=== PATIENT | female | born 1935 | race Caucasian/White ===

== ENCOUNTER 2017-05-13 14:31 | Inpatient (IN) | payer MEDICARE, BC ==
[~2017-05-13] VITALS: Ht 160 cm; Wt 73.0 kg
[2017-05-13 10:30] VITALS: BP 110/76
[~2017-05-13 14:31] MED LIST: ALLOPURINOL100 MG PO; ATENOLOL50 MG PO; CLOPIDOGREL75 MG PO; CRESTOR10 MG PO; FUROSEMIDE40 MG PO; GLIMEPIRIDE2 MG PO; JANUVIA25 MG PO; LEVOTHYROXINE75 MCG PO; PANTOPRAZOLE SO40 MG PO; POTASSIUM CHLO10 ME1 PO; SPIRONOLACTONE25 MG PO; TEMAZEPAM15 MG PO; ULTRAM 50MG50 MG PO
--- OUTSIDE RECORDS SUMMARY | 2017-05-13 14:34 | XMS REPORT ---
Author Author [facility] Address Unknown Phone Unavailable Care Team Providers Care Artificial Fly Tier Name Role Phone JEANETH SWAN Unavailable Unavailable Problems This patient has no known problems. Allergies, Adverse Reactions, Alerts This patient has no known allergies or adverse reactions. Medications This patient has no known medications. Results Test Description Test Time Test Comments Text Results Atomic Results Result Comments IR CONSULT [place] [address] Patient Name: MARGARITA BAZAN MR #: [id number] : 1935 Age/Sex: 81/F Req #: [id number] Adm Physician: JEANETH SWAN MD Ordered by: ANIVAL HUNT MD Report #: [id number] Location: MED/SURG2 Room/Bed: [facility] _ Procedure: [id number] DX/IR CONSULT Exam Date: Exam Time: REPORT STATUS: Signed Date and Time: 02/21/2017 Procedure: Right internal jugular tunneled hemodialysis catheter placement; temporary right internal jugular hemodialysis catheter removal 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 Chacon Pre-operative diagnosis: End-stage renal disease Post -operative diagnosis: End-stage renal disease Conscious Sedation: Versed 1 mg and Fentanyl 50 mcg. The patient's heart rate and pulse oximetry were continuously monitored by the interventional radiology nurse. Blood pressure was monitored at 5 minute intervals. Additional Medications: Lidocaine 1 % for local anesthesia Fluoroscopy time: 1.2 minutes Dose-area Product: 214.3 cGycm2. Contrast used: 0 Estimated blood loss: Less than 20 cc Specimens: Temporary right internal jugular hemodialysis catheter, discarded Implants: 16.5 Citizen Of [place], 19 cm tip-cuff tunneled hemodialysis catheter DISCUSSION: Informed consent was obtained and documented in the medical record after discussion of risks and benefits. The patient was placed in the supine position on the fluoroscopic table. The right neck and chest were prepped and draped in standard sterile fashion. Preliminary sonographic evaluation confirmed patency of the right internal jugular vein, evidenced by compressibility. 1% lidocaine was infiltrated into the skin and subcutaneous tissues for local anesthesia. Then, under continuous sonographic guidance, a 21-gauge micropuncture needle was used to access the right internal jugular vein. A 0.0 1 8-in. wire was advanced centrally under fluoroscopic guidance and the needle was exchanged for a 5 Citizen [place] micropuncture sheath. The wire was then upsized to a 0.0 3 5-in. Amplatz Super Stiff wire which was advanced into the inferior vena cava under fluoroscopic guidance. Attention was then turned to creation of a subcutaneous tunnel on the right upper chest. An appropriate exit site was selected approximately 2 fingerbreadths inferior to the clavicle. Lidocaine 1% was infiltrated into the skin and subcutaneous tissues for local anesthesia from the planned catheter exit site to the venotomy at the right lower neck. A small stab incision was made. The catheter was then tunneled from the exit site on the right upper chest to the venotomy at the right lower neck, advancing the retention cuff well into the subcutaneous tunnel. The micropuncture sheath was then removed over the wire and the tract was dilated. Then a 16.5 Citizen [place] peel-away sheath was advanced over the wire under fluoroscopic guidance. The wire and dilator of the sheath were removed and the catheter was then advanced through the sheath , which was then broken and discarded. The catheter tip was positioned in the upper right atrium. Each lumen showed adequate bidirectional flow and was packed with 2000 units of heparin. The catheter was secured to the skin with monofilament nylon suture. The venotomy at the right lower neck was closed with tissue adhesive. Sterile dressings were applied. The patient tolerated the procedure well without immediate complication. The previously placed temporary right internal jugular hemodialysis catheter was then removed in total and hemostasis was achieved with manual compression. FINDINGS: Patent right internal jugular vein IMPRESSION: Successful placement of a tunneled hemodialysis catheter (16.5 Citizen Of [place], 19 cm tip-cuff length) by a right internal jugular approach, followed by removal of temporary right internal jugular hemodialysis catheter, without immediate complication. Signed by: Dr. Parker Chacon M.D. on 02/23/2017 7:15 AM Dictated By: PARKER CHACON MD 4 Transcribed By: JOSE on 02/23/17714 COPY TO: ANIVAL RTEVIZO MD SPECIAL PROCEDURE IN PRINCIPAL EXAMINER [place] [address] Patient Name: MARGARITA BAZAN MR #: [id number] : 1935 Age/Sex: 81/F Req #: [id number] Adm Physician: JEANETH SWAN MD Ordered by: ANIVAL HUNT MD Report #: [id number] Location: MED/SURG2 Room/Bed: [facility] Procedure: [id number] IR/SPECIAL PROCEDURE IN PRINCIPAL EXAMINER Exam Date: Exam Time: REPORT STATUS: Signed Date and Time: 02/21/2017 Procedure: Right internal jugular tunneled hemodialysis catheter placement; temporary right internal jugular hemodialysis catheter removal 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 Chacon Pre- operative diagnosis: End-stage renal disease Post-operative diagnosis: End- stage renal disease Conscious Sedation: Versed 1 mg and Fentanyl 50 mcg. The patient's heart rate and pulse oximetry were continuously monitored by the interventional radiology nurse. Blood pressure was monitored at 5 minute intervals. Additional Medications: Lidocaine 1% for local anesthesia Fluoroscopy time: 1.2 minutes Dose-area Product: 214.3 cGycm2. Contrast used: 0 Estimated blood loss: Less than 20 cc Specimens: Temporary right internal jugular hemodialysis catheter, discarded Implants: 16.5 Citizen Of [place] , 19 cm tip-cuff tunneled hemodialysis catheter DISCUSSION: Informed consent was obtained and documented in the medical record after discussion of risks and benefits. The patient was placed in the supine position on the fluoroscopic table. The right neck and chest were prepped and draped in standard sterile fashion. Preliminary sonographic evaluation confirmed patency of the right internal jugular vein, evidenced by compressibility. 1% lidocaine was infiltrated into the skin and subcutaneous tissues for local anesthesia. Then, under continuous sonographic guidance, a 21-gauge micropuncture needle was used to access the right internal jugular vein. A 0.0 1 8-in. wire was advanced centrally under fluoroscopic guidance and the needle was exchanged for a 5 Citizen [place] micropuncture sheath. The wire was then upsized to a 0.0 3 5-in. Amplatz Super Stiff wire which was advanced into the inferior vena cava under fluoroscopic guidance. Attention was then turned to creation of a subcutaneous tunnel on the right upper chest. An appropriate exit site was selected approximately 2 fingerbreadths inferior to the clavicle. Lidocaine 1% was infiltrated into the skin and subcutaneous tissues for local anesthesia from the planned catheter exit site to the venotomy at the right lower neck. A small stab incision was made. The catheter was then tunneled from the exit site on the right upper chest to the venotomy at the right lower neck, advancing the retention cuff well into the subcutaneous tunnel. The micropuncture sheath was then removed over the wire and the tract was dilated. Then a 16.5 Citizen [place] peel-away sheath was advanced over the wire under fluoroscopic guidance. The wire and dilator of the sheath were removed and the catheter was then advanced through the sheath , which was then broken and discarded. The catheter tip was positioned in the upper right atrium. Each lumen showed adequate bidirectional flow and was packed with 2000 units of heparin. The catheter was secured to the skin with monofilament nylon suture. The venotomy at the right lower neck was closed with tissue adhesive. Sterile dressings were applied. The patient tolerated the procedure well without immediate complication. The previously placed temporary right internal jugular hemodialysis catheter was then removed in total and hemostasis was achieved with manual compression. FINDINGS: Patent right internal jugular vein IMPRESSION: Successful placement of a tunneled hemodialysis catheter (16.5 Citizen [place], 19 cm tip-cuff length) by a right internal jugular approach, followed by removal of temporary right internal jugular hemodialysis catheter, without immediate complication. Signed by: Dr. Parker Chacon M.D. on 02/23/2017 7:15 AM Dictated By: PARKER CHACON MD 4 Transcribed By: OJSE on 02/23/17714 COPY TO: ANIVAL TREVIZO MD IR CONSULT [place] [address] Patient Name: MARGARITA BAZAN MR #: [id number] : 1935 Age/Sex: 81/F Req #: [id number] Adm Physician: JEANETH SWAN MD Ordered by: ANIVAL HUNT MD Report #: [id number] Location: MED/SURG2 Room/Bed: [facility] _ Procedure: [id number] DX/IR CONSULT Exam Date: Exam Time: REPORT STATUS: Signed PROCEDURE: NON-TUNNELLED CVC CATH PLACMNT COMPARISON: None. INDICATIONS: Need for dialysis. COMPLICATIONS : None. MEDICATIONS: None. BLOOD LOSS: 2.0 cc. PROCEDURE: Focused examination demonstrated a right internal jugular triple-lumen temporary central venous catheter. Ux Engineer image demonstrated the catheter tip to be projected over the stomach the region of the superior vena cava. The existing catheter and right neck were prepped and draped in the usual sterile fashion. 1% lidocaine was infused around the catheter for local anesthesia. A 0.035 inch wire was advanced through the existing catheter. The wire was advanced into the inferior vena cava for stability. The existing catheter was removed. A single dilation was performed over the wire. A new double lumen temporary central venous hemodialysis catheter with an accessory port was advanced over the wire. The catheter tip was positioned within the right atrium. The wire was removed. The catheter demonstrates proper function with aspiration and flushing of saline. The catheter lumens were flushed with sterile saline. A sterile dressing was applied. There were no immediate complications. The patient tolerated the procedure well. The patient was transferred to the post procedure area in stable unchanged condition for further monitoring. CONCLUSION: Successful exchange, utilizing fluoroscopic guidance, of the right internal jugular temporary central venous catheter for a right internal jugular temporary central venous hemodialysis catheter with an accessory port. Dictated by: Shilpa Atkins M.D. on 02/26/2017 at 13:28 Electronically approved by: Shilpa Atkins M.D. on 02/26/2017 at 13:28 Dictated By: SHILPA ATKINS MD 1328 COPY TO: ANIVAL HUNT MD NON-TUNNELLED CVC CATH PLACMNT [place] [address] Patient Name: MARGARITA BAZAN MR #: [id number] : 1935 Age/Sex: 81/F Req #: [id number] Adm Physician: JEANETH SWAN MD Ordered by: JEANETH SWAN MD Report #: [id number] Location: [place] [address] Room/Bed: [facility] Procedure: [id number] IR/NON-TUNNELLED CVC CATH PLACMNT Exam Date: 02/12/17 Exam Time: 1530 REPORT STATUS: Signed PROCEDURE: NON-TUNNELLED CVC CATH PLACMNT COMPARISON: None. INDICATIONS: Need for dialysis. COMPLICATIONS: None. MEDICATIONS: None. BLOOD LOSS: 2.0 cc. PROCEDURE: Focused examination demonstrated a right internal jugular triple-lumen temporary central venous catheter. Ux Engineer image demonstrated the catheter tip to be projected over the stomach the region of the superior vena cava. The existing catheter and right neck were prepped and draped in the usual sterile fashion. 1% lidocaine was infused around the catheter for local anesthesia. A 0.035 inch wire was advanced through the existing catheter. The wire was advanced into the inferior vena cava for stability. The existing catheter was removed. A single dilation was performed over the wire. A new double lumen temporary central venous hemodialysis catheter with an accessory port was advanced over the wire. The catheter tip was positioned within the right atrium. The wire was removed. The catheter demonstrates proper function with aspiration and flushing of saline. The catheter lumens were flushed with sterile saline. A sterile dressing was applied. There were no immediate complications. The patient tolerated the procedure well. The patient was transferred to the post procedure area in stable unchanged condition for further monitoring. CONCLUSION: Successful exchange, utilizing fluoroscopic guidance, of the right internal jugular temporary central venous catheter for a right internal jugular temporary central venous hemodialysis catheter with an accessory port. Dictated by: Shilpa Atkins M.D. on 02/26/2017 at 13:28 Electronically approved by: Shilpa Atkins M.D. on 02/26/2017 at 13:28 Dictated By: SHILPA ATKINS MD 1328 COPY TO: JEANETH SWAN MD FLUORO GUIDANCE [address]/REM [place] [address] Patient Name: MARGARITA BAZAN MR #: [id number] : 1935 Age/Sex: 81/F Req #: [id number] Adm Physician: JEANETH SWAN MD Ordered by: JEANETH SWAN MD Report #: [id number] Location: MED/SURG2 Room/Bed: [facility] Procedure: [id number] DX/FLUORO GUIDANCE [address]/ REM Exam Date: 02/12/17 Exam Time: 1530 REPORT STATUS: Signed PROCEDURE: NON-TUNNELLED CVC CATH PLACMNT COMPARISON: None. INDICATIONS: Need for dialysis. COMPLICATIONS: None. MEDICATIONS: None. BLOOD LOSS: 2.0 cc. PROCEDURE: Focused examination demonstrated a right internal jugular triple-lumen temporary central venous catheter. Ux Engineer image demonstrated the catheter tip to be projected over the stomach the region of the superior vena cava. The existing catheter and right neck were prepped and draped in the usual sterile fashion. 1% lidocaine was infused around the catheter for local anesthesia. A 0.035 inch wire was advanced through the existing catheter. The wire was advanced into the inferior vena cava for stability. The existing catheter was removed. A single dilation was performed over the wire. A new double lumen temporary central venous hemodialysis catheter with an accessory port was advanced over the wire. The catheter tip was positioned within the right atrium. The wire was removed. The catheter demonstrates proper function with aspiration and flushing of saline. The catheter lumens were flushed with sterile saline. A sterile dressing was applied. There were no immediate complications. The patient tolerated the procedure well. The patient was transferred to the post procedure area in stable unchanged condition for further monitoring. CONCLUSION: Successful exchange, utilizing fluoroscopic guidance, of the right internal jugular temporary central venous catheter for a right internal jugular temporary central venous hemodialysis catheter with an accessory port. Dictated by: Shilpa Atkins M.D. on 02/26/2017 at 13:28 Electronically approved by: Shilpa Atkins M.D. on 02/26/2017 at 13:28 Dictated By: SHILPA ATKINS MD 1328 COPY TO: JEANETH SWAN MD [facility] ([facility] [place] [address] Patient Name: MARGARITA BAZAN MR #: [id number] : 1935 Age/Sex: 81/F Req #: [id number] Adm Physician: GABY LUGO MD Ordered by: GABY LUGO MD Report #: [id number] Location: [facility] Room/Bed: [facility] Procedure: [id number] DX/CHEST SINGLE (PORTABLE) Exam Date: 02/11/17 Exam Time: 0545 REPORT STATUS: Signed EXAMINATION: CHEST SINGLE (PORTABLE) INDICATION: CHF and pneumonia COMPARISON: 02/09/2017 FINDINGS: TUBES and LINES: Interval placement of right IJ central line catheter. LUNGS: Lungs are not well inflated. There are bibasilar atelectasis. There is perihilar interstital opacities, consistent with interstitial edema. PLEURA : Small bilateral pleural effusions present. HEART AND MEDIASTINUM: Cardiac size is moderately enlarged. There are atherosclerotic calcifications within the aorta. Midline sternotomy wires are stable BONES AND SOFT TISSUES: No acute osseous lesion. Soft tissues are unremarkable. UPPER ABDOMEN: No free air under the diaphragm. IMPRESSION: Findings are in keeping with cardiogenic pulmonary edema and pleural effusions. Signed by: Dr. Kristopher Denney M.D. on 02/11/2017 6:45 AM Dictated By: KRISTOPHER PLUNKETT MD 4 COPY TO: GABY LUGO MD IR CONSULT [address] [address] Patient Name: MARGARITA BAZAN MR #: [id number] : 1935 Age/Sex: 81/F Req #: [id number] [facility] Physician: JEANETH SWAN MD Ordered by: GABY LUGO MD Report #: [id number] Location: MED/SURG2 Room/Bed: [facility] _ Procedure: [id number] DX/IR CONSULT Exam Date: Exam Time: REPORT STATUS: Signed Date and Time: 02/10/2017 Procedure: Central venous catheter placement 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 Chacon Pre-operative diagnosis: Poor intravenous access Post-operative diagnosis: Poor intravenous access Conscious Sedation: None Additional Medications: Lidocaine 1% for local anesthesia Fluoroscopy time: 0.3 minutes Dose-area Product: 3.54 cGycm2. Frontal Air Kerma: 19 mGy Contrast used: None Estimated blood loss: Less than 5 cc Blood products administered: None Specimens: None Implants: 7 Citizen Of [place] 16 cm triple-lumen central venous catheter DISCUSSION: Informed consent was obtained and documented in the medical record after discussion of risks and benefits. The patient was placed in the supine position on the fluoroscopic table. Preliminary sonographic evaluation confirmed patency of the right internal jugular vein, evidenced by compressibility. The right cervical region was prepped and draped in the standard sterile fashion. 1% lidocaine was infiltrated into the skin and subcutaneous tissues for local anesthesia. Then under continuous sonographic guidance an 18-gauge singlewall needle was advanced into the right internal jugular vein. A permanent sonographic image was stored in the medical record. A 0.0 3 5-in. wire was advanced centrally under fluoroscopic guidance. The needle was removed and the tract was dilated. Then a 7 Citizen [place] 16 cm triple-lumen central venous catheter was advanced over the wire to full depth. The wire was removed and the catheter tip was positioned in the low superior vena cava. Each lumen showed adequate bidirectional flow and was flushed with sterile saline. The catheter was secured to the skin with monofilament nylon suture and a sterile dressing was applied. The patient tolerated the procedure well without immediate complication. FINDINGS: Patent right internal jugular vein. IMPRESSION: Successful placement of a 7 Citizen [place] 16 cm triple-lumen central venous catheter by a right internal jugular approach under sonographic and fluoroscopic guidance. The catheter may be used immediately. Signed by: Dr. Parker Chacon M.D. on 02/10/2017 11:32 AM Dictated By: PARKER CHACON MD 57 Transcribed By: JOSE on 02/15/171457 COPY TO: GABY LUGO MD NON-TUNNELLED CVC CATH PLACMNT [place] [address] Patient Name: MARGRAITA BAZAN MR #: [id number] : 1935 Age/Sex: 81/F Req #: [id number] Adm Physician: JEANETH SWAN MD Ordered by: GABY LUGO MD Report #: [id number] Location: MED/SURG2 Room/Bed: [facility] Procedure: [id number] IR/NON-TUNNELLED CVC CATH PLACMNT Exam Date: 02/10/17 Exam Time: 1000 REPORT STATUS: Signed Date and Time: 02/10/2017 Procedure: Central venous catheter placement 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 Frontal Air Kerma: 19 mGy Contrast used: None Estimated blood loss: Less than 5 cc Blood products administered: None Specimens: None Implants: 7 Citizen [place] 16 cm triple-lumen central venous catheter DISCUSSION: Informed consent was obtained and documented in the medical record after discussion of risks and benefits. The patient was placed in the supine position on the fluoroscopic table. Preliminary sonographic evaluation confirmed patency of the right internal jugular vein, evidenced by compressibility. The right cervical region was prepped and draped in the standard sterile fashion. 1% lidocaine was infiltrated into the skin and subcutaneous tissues for local anesthesia. Then under continuous sonographic guidance an 18-gauge singlewall needle was advanced into the right internal jugular vein. A permanent sonographic image was stored in the medical record. A 0.0 3 5-in. wire was advanced centrally under fluoroscopic guidance. The needle was removed and the tract was dilated. Then a 7 Citizen [place] 16 cm triple-lumen central venous catheter was advanced over the wire to full depth. The wire was removed and the catheter tip was positioned in the low superior vena cava. Each lumen showed adequate bidirectional flow and was flushed with sterile saline. The catheter was secured to the skin with monofilament nylon suture and a sterile dressing was applied. The patient tolerated the procedure well without immediate complication. FINDINGS : Patent right internal jugular vein. IMPRESSION: Successful placement of a 7 Citizen [place] 16 cm triple-lumen central venous catheter by a right internal jugular approach under sonographic and fluoroscopic guidance. The catheter may be used immediately. Signed by: Dr. Parker Chacon M.D. on 02/10/2017 11:32 AM Dictated By: PARKER CHACON MD 57 Transcribed By: JOSE on 1457 COPY TO: GABY LUGO MD FLUORO GUIDANCE [address]/REM [place] [address] Patient Name: MARGARITA BAZAN MR #: [id number] : 1935 Age/Sex: 81/F Req #: [id number] Adm Physician: JEANETH SWAN MD Ordered by: GABY LUGO MD Report #: [id number] Location: MED/SURG2 Room/Bed: [facility] Procedure: [id number] DX/FLUORO GUIDANCE [address]/REM Exam Date: 02/10/17 Exam Time: 1000 REPORT STATUS: Signed Date and Time: 02/10/2017 Procedure: Central venous catheter placement 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 Frontal Air Kerma: 19 mGy Contrast used: None Estimated blood loss: Less than 5 cc Blood products administered: None Specimens: None Implants: 7 Citizen [place] 16 cm triple-lumen central venous catheter DISCUSSION: Informed consent was obtained and documented in the medical record after discussion of risks and benefits. The patient was placed in the supine position on the fluoroscopic table. Preliminary sonographic evaluation confirmed patency of the right internal jugular vein, evidenced by compressibility. The right cervical region was prepped and draped in the standard sterile fashion. 1% lidocaine was infiltrated into the skin and subcutaneous tissues for local anesthesia. Then under continuous sonographic guidance an 18-gauge singlewall needle was advanced into the right internal jugular vein. A permanent sonographic image was stored in the medical record. A 0.0 3 5-in. wire was advanced centrally under fluoroscopic guidance. The needle was removed and the tract was dilated. Then a 7 Citizen [place] 16 cm triple-lumen central venous catheter was advanced over the wire to full depth. The wire was removed and the catheter tip was positioned in the low superior vena cava. Each lumen showed adequate bidirectional flow and was flushed with sterile saline. The catheter was secured to the skin with monofilament nylon suture and a sterile dressing was applied. The patient tolerated the procedure well without immediate complication. FINDINGS : Patent right internal jugular vein. IMPRESSION: Successful placement of a 7 [place] 16 cm triple-lumen central venous catheter by a right internal jugular approach under sonographic and fluoroscopic guidance. The catheter may be used immediately. Signed by: Dr. Parker Chacon M.D. on 02/10/2017 11:32 AM Dictated By: PARKER CHACON MD 57 Transcribed By: JOSE on 1457 COPY TO: GABY LUGO MD US GUIDANCE FOR VASCULAR ACCES [place] [address] Patient Name: MARGARITA BAZAN MR #: [id number] : 1935 Age/Sex: 81/F Req #: [id number] Adm Physician: JEANETH SWAN MD Ordered by: GABY LUGO MD Report #: [id number] Location: [facility] Room/Bed: [facility] Procedure: [id number] US/US GUIDANCE FOR VASCULAR ACCES Exam Date: 02/10/17 Exam Time: 1027 REPORT STATUS: Signed Date and Time: 02/10/2017 Procedure: Central venous catheter placement 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 Frontal Air Kerma: 19 mGy Contrast used: None Estimated blood loss: Less than 5 cc Blood products administered: None Specimens: None Implants: 7 Citizen [place] 16 cm triple-lumen central venous catheter DISCUSSION: Informed consent was obtained and documented in the medical record after discussion of risks and benefits. The patient was placed in the supine position on the fluoroscopic table. Preliminary sonographic evaluation confirmed patency of the right internal jugular vein, evidenced by compressibility. The right cervical region was prepped and draped in the standard sterile fashion. 1% lidocaine was infiltrated into the skin and subcutaneous tissues for local anesthesia. Then under continuous sonographic guidance an 18-gauge singlewall needle was advanced into the right internal jugular vein. A permanent sonographic image was stored in the medical record. A 0.0 3 5-in. wire was advanced centrally under fluoroscopic guidance. The needle was removed and the tract was dilated. Then a 7 Citizen [place] 16 cm triple-lumen central venous catheter was advanced over the wire to full depth. The wire was removed and the catheter tip was positioned in the low superior vena cava. Each lumen showed adequate bidirectional flow and was flushed with sterile saline. The catheter was secured to the skin with monofilament nylon suture and a sterile dressing was applied. The patient tolerated the procedure well without immediate complication. FINDINGS : Patent right internal jugular vein. IMPRESSION: Successful placement of a 7 [place] 16 cm triple-lumen central venous catheter by a right internal jugular approach under sonographic and fluoroscopic guidance. The catheter may be used immediately. Signed by: Dr. Parker Chacon M.D. on 02/10/2017 11:32 AM Dictated By: PAKRER CHACON MD 57 Transcribed By: JOSE on 1457 COPY TO: GABY LUGO MD CHEST SINGLE (PORTABLE) [place] [address] Patient Name: MARGARITA BAZAN MR #: [id number] : 1935 Age/Sex: 81/F Req #: [id number] Adm Physician: Ordered by: LAKEISHA SANON Report #: [id number] Location: ER Room/Bed: _ Procedure: [id number] DX/CHEST SINGLE (PORTABLE) Exam Date: 02/09/17 Exam Time: 1500 REPORT STATUS: Signed PROCEDURE: A single AP view of the chest. COMPARISON: None. INDICATIONS: DYSPNEA FINDINGS: Lines/tubes: None. Lungs: The lungs are well inflated. Interstitial edema and bibasilar opacities likely representing atelectasis related to adjacent pleural effusions. Pleura : Small bilateral pleural effusions. No pneumothorax. Heart and mediastinum: The cardiac silhouette is enlarged. Bones: No acute bony abnormality. Median sternotomy wires. Soft tissues: Surgical clip overlies the left upper breast. IMPRESSION: Cardiogenic pulmonary edema with small bilateral pleural effusions. Dictated by: Danny Moore M.D. on 02/09/2017 at 15:48 Electronically approved by: Danny Moore M.D. on 02/09/2017 at 15:48 Dictated By: DANNY MOORE MD 1548 Transcribed By: DIGNA on 02/09/17 1548 COPY TO: LAKEISHA SANON
--- OUTSIDE RECORDS SUMMARY | 2017-05-13 14:34 | XMS REPORT | Clinical Summary ---
Author Author [facility] Organization [facility] Address Unknown Phone Unavailable Care Team Providers Care [employer] Name Role Phone Natalie Hawk DO PCP Allergies Active Allergy Reactions Severity Noted Date Comments Verapamil Swelling 06/08/2016 Rivaroxaban Other (See Comments) 06/10/2016 dizziness Current Medications Prescription Sig. Disp. Refills Start End Date Status Date rosuvastatin (CRESTOR) 5 Take 5 mg by mouth daily. Active MG tablet allopurinol (ZYLOPRIM) Take 100 mg by mouth Active 100 MG tablet daily. clopidogrel (PLAVIX) 75 Take 75 mg by mouth Active mg tablet daily. pantoprazole (PROTONIX) Take 40 mg by mouth Active 40 MG EC tablet daily. atenolol (TENORMIN) 50 MG Take 50 mg by mouth 2 Active tablet (two) times a day. spironolactone Take 25 mg by mouth Active (ALDACTONE) 25 MG tablet daily. traMADol (ULTRAM) 50 mg Take 50 mg by mouth every Active tablet 6 (six) hours as needed for moderate pain. levothyroxine (SYNTHROID, Take 75 mcg by mouth Active LEVOXYL) 75 mcg tablet every morning. potassium chloride Take 10 mEq by mouth 2 Active (K-DUR,KLOR-CON) 10 MEQ (two) times a day. CR tablet glimepiride (AMARYL) 2 MG Take 2 mg by mouth daily Active tablet before breakfast. vitamin A 8000 UNIT Take 8,000 Units by mouth Active capsule daily. cholecalciferol, vitamin Take 400 Units by mouth Active D3, (VITAMIN D3) 400 unit daily. tablet latanoprost (XALATAN) Apply 1 drop to eye Active 0.005 % ophthalmic daily. For dry eye solution syndrome sitaGLIPtin (JANUVIA) 25 Take 25 mg by mouth Active MG tablet daily. albuterol (PROAIR Inhale 2 puffs every 6 Active HFA,PROVENTIL (six) hours as needed for HFA,VENTOLIN HFA) 90 wheezing. mcg/actuation inhaler ipratropium (ATROVENT) 2 sprays into each Active 0.03 % nasal spray nostril every 12 (twelve) hours as needed for rhinitis. hydrOXYzine (ATARAX) 25 Take 25 mg by mouth 3 Active MG tablet (three) times a day as needed for itching. SITAGLIPTIN PHOSPHATE Take by mouth. 12/30/19 Discontin (JANUVIA ORAL) 17 ued furosemide (LASIX) 40 mg Take 40 mg by mouth 2 01/06/20 Discontin tablet (two) times a day. 17 ued potassium chloride Take 20 mEq by mouth 2 06/11/19 Discontin (KLOR-CON) 20 mEq packet (two) times a day. 17 ued aspirin (ECOTRIN) 81 MG Take 1 tablet (81 mg 30 tablet 0 06/21/19 enteric coated tablet total) by mouth daily for 17 17 30 days. lactulose 20 gram/30 mL Take 30 mL (20 g total) 300 mL 1 06/21/19 solution by mouth daily as needed 17 17 (constipation) for up to 30 days. traZODone (DESYREL) 50 MG Take 1 tablet (50 mg 30 tablet 0 06/21/19 07/21/19 tablet total) by mouth nightly 17 17 for 30 days. dextran 70-hypromellose Administer 1 drop to both 01/06/20 02/05/20 (ARTIFICIAL TEARS) eyes 4 (four) times a day 17 17 0.1-0.3 % drops as needed (itching) for up to 30 days. benzonatate (TESSALON) Take 1 capsule (200 mg 01/06/20 02/05/20 200 MG capsule total) by mouth every 6 17 17 (six) hours as needed for cough for up to 30 days. ipratropium-albuterol Take 3 mL by nebulization 01/06/20 02/05/20 (DUO-NEB) 0.5-2.5 mg/mL every 4 (four) hours as 17 17 nebulizer needed for wheezing for up to 30 days. guaiFENesin (MUCINEX) 600 Take 1 tablet (600 mg 60 tablet 0 01/06/20 02/05/20 mg tablet extended total) by mouth 2 (two) 17 17 release 12hr times a day for 30 days. dextromethorphan-guaifene Take 10 mL by mouth every 01/06/20 02/05/20 sin (ROBITUSSIN-DM) 4 (four) hours as needed 17 17 10-100 mg/5 mL liquid for cough for up to 30 days. piperacillin-tazobactam Infuse 2.25 g into a 01/06/20 01/09/20 (ZOSYN) 2.25 gram in 50 venous catheter every 6 17 17 mL Mini-Bag Plus (six) hours for 3 days. vancomycin in 0.9% sodium Infuse 1.25 g (1,250 mg 01/06/20 01/09/20 chloride (VANCOCIN) 1250 total) into a venous 17 17 mg/250 mL IVPB catheter every other day for 3 days. Active Problems Problem Noted Date Heart failure due to valvular disease 12/29/2016 S/P MVR (mitral valve repair) 07/21/2016 Overview: with a 62 modifier. 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 paiute heart 12/2016 without angina pectoris Overview: Hx CABG hx PCI Type 2 diabetes mellitus without complication, without long-term current 12/2016 use of insulin History of carotid endarterectomy 06/08/2016 History of renal stent 06/08/2016 GERD (gastroesophageal reflux disease) Encounters Date Type Specialty Care Team Description 02/28/2017 Orders Only Cardiology Pushpa Pichardo MA S/P mitral valve clip implantation (Primary Dx); Aortic valve disorder 02/12/2017 Telephone Cardiology Yannick Liang MD pt readmitted to the hosp for dvt's 01/23/2017 Telephone Cardiology Yannick Liang MD pt to have TTE scheduled post d/c from assisted living 01/15/2017 Orders Only Yenni Dias 01/04/2017 Anesthesia Critical Care Medicine Ramon Grewal, CLASSIFIED AD TAKER Event 01/04/2017 Orders Only Procedural Cardiology Vaishali Seymour RN 12/29/2016 [facility] Critical Care Medicine Rojas Rod MD Heart failure due to - Encounter Geno Powers MD valvular disease, acute 01/05/2017 on chronic, diastolic (Primary Dx); Permanent atrial fibrillation 08/03/2016 [facility] Cardiology Colin Cesar MD Severe mitral ry Visit Yannick Liang MD regurgitation (Primary Dx); Severe tricuspid regurgitation; 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 paiute heart without angina pectoris; Chronic atrial fibrillation 08/03/2016 Hospital Procedural Cardiology Colin Cesar MD Mitral valve disorder; Encounter S/P mitral valve clip implantation 08/03/2016 Orders Only Cardiology Yeimi Osuna, OLIVIA Mitral valve disorder (Primary Dx) 07/26/2016 Orders Only Cardiology ThaoFranceYeimi, MA Mitral valve disorder (Primary Dx); S/P mitral valve clip implantation 06/23/2016 Telephone Cardiology Eda Baird RN shortness breath and coughing phlegm 06/21/2016 Patient Quality Raquel Lockwood R Outreach 06/21/2016 Orders Only Cardiology ThaoFelixia, MA Mitral valve disorder (Primary Dx); S/P mitral valve clip implantation 06/19/2016 Anesthesia Procedural Cardiology Brina Morris Event 06/19/2016 Procedure Pass Procedural Cardiology 06/19/2016 Procedure Pass Procedural Cardiology 06/19/2016 Surgery Procedural Cardiology Yannick Liang MD Cv mitral clip [29728 (CPT )] 06/14/2016 Orders Only Cardiology Yannick Liang MD Non-rheumatic mitral regurgitation (Primary Dx) 06/13/2016 Procedure Pass Procedural Cardiology 06/13/2016 Surgery Procedural Cardiology Bryant Matt MD Cv right and left heart cath selective angiography lv [95017 (CPT )] 06/09/2016 [facility] Cardiology Adonis Ramos Severe mitral - Encounter MD Nate regurgitation (Primary 06/21/2016 Virginia Rod MD Dx); Dyspnea, unspecified type; J.B. 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 paiute heart without angina pectoris 06/08/2016 [facility] Cardiology Colin Cesar MD Mitral valve ry Visit insufficiency, unspecified etiology (Primary Dx) 06/08/2016 Office Visit Cardiovascular Milan Kwan MD Severe mitral regurgitation (Primary Dx); Severe tricuspid regurgitation; Chronic atrial fibrillation; 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 paiute heart without angina pectoris; Type 2 diabetes mellitus without complication, without long-term current use of insulin; CKD (chronic kidney disease), unspecified stage; History of carotid endarterectomy; History of renal stent after 05/12/2016 Immunizations Name Dates Previously Given Next Due FLUCELVAX QUAD PF (0.5mL 01/03/2017 syringe) Family History Medical History Relation Name Comments Heart attack Brother Heart attack Father Heart disease Father Heart attack Sister Relation Name Status Comments Brother Father Mother Sister Social History Tobacco Use Types Packs/Day Years Used Date Former Smoker Cigarettes 2 30 Alcohol Use Drinks/Week oz/Week Comments No Sex Assigned at Date Recorded Not on file Last Filed Vital Signs Vital Sign Reading Time Taken Blood Pressure 125/60 01/05/2017 6:00 PM CDT Pulse 76 01/05/2017 6:00 PM CDT Temperature 35.8 C (96.5 F) 01/05/2017 3:09 PM CDT Respiratory Rate 22 01/05/2017 5:13 PM CDT Oxygen Saturation 94% 01/05/2017 5:13 PM CDT Inhaled Oxygen - - Concentration Weight 95.5 kg (210 lb 9.6 oz) 01/05/2017 7:00 AM CDT Height 167.6 cm (5' 6") 12/29/2016 7:27 PM CDT Body Mass Index 33.99 01/05/2017 7:00 AM CDT Plan of Treatment Date Type Specialty Care Team Description 06/28/2017 Appointment Procedural Cardiology Yannick Liang MD [address] [facility] [address] [place] [address] [id number] 06/28/2017 Multidisciplina Cardiology Yannick Liang MD ry Visit [address] [facility] [address] [place] [address] Health Maintenance Due Date Last Done Comments FOOT EXAM 09/10/1943 OPHTHALMOLOGY EXAM 09/10/1943 URINE MICROALBUMIN 09/10/1943 ZOSTER VACCINE 1993 PNEUMOCOCCAL-13 1998 PNEUMOCOCCAL Completed 11/05/2006 POLYSACCHARIDE VACCINE AGE 65 AND OVER INFLUENZA VACCINE Completed 01/03/2017, 01/12/2016, 02/17/2004 Implants Implanted Type Area Manager Video Device Expiration Model / Identifier Date Serial / Lot Kit Mitraclip System (1 Clip) - Cardiovasc ZEPEDA VASCULAR [id number] ular DEVICES / Implanted: Qty: 1 on 06/19/2016 by Implants / Yannick Liang MD Procedures Procedure Name Priority Date/Time Associated Diagnosis Comments ECHOCARDIOGRAM Routine 01/04/2017 Results for this TRANSESOPHAGEAL W DOPPLER 12:43 PM CDT procedure are in the COLORFLOW results section. ECHOCARDIOGRAM 2D Routine 12/29/2016 Results for this COMPLETE W MMODE SPECTRAL 8:55 PM CDT procedure are in the COLOR DOPPLER (60717) results section. ECHOCARDIOGRAM 2D Routine 08/03/2016 Mitral valve disorder Results for this COMPLETE W MMODE SPECTRAL 9:58 AM CDT S/P mitral valve clip procedure are in the COLOR DOPPLER (55795) implantation results section. ECHOCARDIOGRAM 2D Routine 06/20/2016 Results for this COMPLETE W MMODE SPECTRAL 2:51 PM CDT procedure are in the COLOR DOPPLER (95119) results section. ECHOCARDIOGRAM Routine 06/19/2016 Results for this TRANSESOPHAGEAL 2:43 PM CDT procedure are in the INTRAPROCEDURE results section. ANESTHESIA INTUBATION Routine 06/19/2016 1:59 PM CDT Procedure Note - Ramon Grewal CRNA - 06/19/2016 11:17 AM CDT Airway Date/Time: 06/19/2016 11:05 AM Performed by: LIZY HERNÁNDEZ V Authorized by: LIZY HERNÁNDEZ V Location: OR Urgency: Elective Difficult Airway: No Anesthesio logist: LIZY HERNÁNDEZ V Resident/C RNA: RAMON GREWAL Other Anesthesia Staff: BRINA MORRIS Performed by: other anesthesia staff Preoxygena ilyah with 100% O2: Yes C-spine Precaution s Maintained Throughout : Yes Mask Ventilatio n: Easy mask Final Airway Type: Endotrache al airway Final Endotrache al Airway: ETT Cuffed: Yes Technique Used: Direct laryngosco py Devices/Me thods Used in Placement: Intubatin g stylet Insertion Site: Oral Blade Type: George Laryngosco pe Blade/Vide olaryngosc ope Blade Size: 2 ETT Size (mm): 7.0 Cuff at minimum occlusion pressure: Yes Measured from: Lips ETT to Lips (cm): 22 Placement Verified by: CO2 detection, direct visualizat ion and equal breath sounds Laryngosco pic view: Grade I - full view of glottis Rapid Sequence Induction (RSI): No Modified RSI: No Number of Attempts at Approach: 1 ARTERIAL LINE Routine 06/19/2016 1:59 PM CDT Procedure Note - Ramon Grewal CRNA - 06/19/2016 11:40 AM CDT Arterial line Performed by: LIZY HERNÁNDEZ V Authorized by: LIZY HERNÁNDEZ V Patient Location: Pre-op Start Time: 06/19/2016 9:00 AM End Time: 06/19/2016 9:20 AM Staff: Anesthesio logist: LIZY HERNÁNDEZ V Other Staff: BRINA MORRIS Performed by: Other staff Pre-proced ure: patient identified MSBT: antiseptic used and hand hygiene performed Indicatio ns: Indication s: multiple ABGs and hemodynami c monitoring Anesthesia : Anesthesia : General Procedure Details: Arterial Line placement: Placed pre-induct ion Line placement site: Radial Line placement side: Right Arterial line gauge: 20 G Number of attempts: 1 Ultrasound guidance used: No Post-proce dure: Post-proce dure: Sterile dressing applied Post procedure circulatio n, sensation, movement: Normal Patient tolerance: Patient tolerated the procedure well with no immediate complicati ons CV RIGHT HEART CATH Routine 06/19/2016 Non-rheumatic mitral Results for this 1:27 PM CDT regurgitation procedure are in the results section. CV MITRAL CLIP Routine 06/19/2016 Non-rheumatic mitral Results for this 1:27 PM CDT regurgitation procedure are in the results section. CV RIGHT AND LEFT HEART Routine 06/13/2016 Results for this CATH SELECTIVE CORONARY 5:38 PM CDT procedure are in the LV results section. ECHOCARDIOGRAM 2D Routine 06/12/2016 Results for this COMPLETE W MMODE SPECTRAL 11:29 AM CDT procedure are in the COLOR DOPPLER (47624) results section. 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 Component Value Ref Range POC glucose 161 (H) 65 - 99 mg/dL Comment: No Action Needed [facility] Notified RN Meter ID: [id number] Law Examiner: Jason Cuenca Specimen Performing Laboratory [facility] DEPARTMENT OF PATHOLOGY AND GENOMIC MEDICINE [address] [place] [phone] * CBC with platelet and differential (01/05/2017 5:20 AM) Only the most recent of 15 results within the time period is included. Component Value Ref Range WBC 11.16 (H) 4.50 - 11.00 k/uL RBC 5.06 4.20 - 5.50 m/uL HGB 12.8 12.0 - 16.0 g/dL HCT 41.8 37.0 - 47.0 % MCV 82.6 82.0 - 100.0 fL MCH 25.3 (L) 27.0 - 34.0 pg MCHC 30.6 (L) 31.0 - 37.0 g/dL RDW - SD 65.1 (H) 37.0 - 55.0 fL MPV 10.8 8.8 - 13.2 fL Platelet count 246 150 - 400 k/uL Nucleated RBC 0.20 /100 WBC Neutrophils 71.8 (H) 39.0 - 69.0 % Lymphocytes 12.3 (L) 25.0 - 45.0 % Monocytes 11.5 (H) 0.0 - 10.0 % Eosinophils 1.6 0.0 - 5.0 % Basophils 0.6 0.0 - 1.0 % Immature granulocytes 2.2 (H)Comment: "Immature granulocytes" 0.0 - 1.0 % (promyelocytes, myelocytes, metamyelocytes) Specimen Performing Laboratory Blood [facility] DEPARTMENT OF PATHOLOGY AND GENOMIC MEDICINE [address] [place] [phone] * Estimated GFR (01/05/2017 4:00 AM) Only the most recent of 22 results within the time period is included. Component Value Ref Range GFR Non Af Amer 27 (A) mL/min/1.73 m2 GFR Af Amer 33 (A) mL/min/1.73 m2 Comment: Chronic kidney disease: <60 mL/min/1.73m2 Kidney failure: <15 mL/min/1.73m2 The estimated GFR is calculated from the IDMS-traceable Modification of Diet in Renal Disease Equation. The accuracy of the calculation is poor when the creatinine is normal. Calculated values >90 mL/min/1.73m2 are not reported. This equation has not been validated in children (<18 years), women, the elderly (>70 years), or ethnic groups other than Caucasians and Americans. Specimen Performing Laboratory Plasma specimen [facility] DEPARTMENT OF PATHOLOGY AND GENOMIC MEDICINE [address] [place] [address] * Basic metabolic panel (01/05/2017 4:00 AM) Only the most recent of 18 results within the time period is included. Component Value Ref Range Sodium 143 135 - 148 mEq/L Potassium 3.7 3.5 - 5.0 mEq/L Chloride 97 (L) 98 - 112 mEq/L CO2 33 (H) 24 - 31 mEq/L Anion gap 13 7 - 15 mEq/L Comment: Starting from July , anion gap calculation no longer incorporates potassium. Please note the change. BUN 57 (H) 8 - 23 mg/dL Creatinine 1.8 (H) 0.5 - 0.9 mg/dL Glucose 133 (H) 65 - 99 mg/dL Calcium 9.5 8.8 - 10.2 mg/dL Specimen Performing Laboratory Plasma specimen [facility] DEPARTMENT OF PATHOLOGY AND [facility] MEDICINE [address] [place] [address] * Echocardiogram transesophageal (01/04/2017 12:43 PM) Specimen Performing [facility] [address] [place] [address] Narrative Transesophageal Echo Report [address] [place] [address] , [place] [address] Pat.Name:GILMA MELLO Pat.ID:[id number] .Date: 01/04/2017 Refer.MD:GENO POWERS MD Exam Time: 8:52:00 AMStudy Type:ROSAMARIA Height:66inWeight:219lb BSA: 2.08 m2 DOBAge:1935,81Y Sex: FEMALEBP: 118/77 HR:84 bpmSonogrphr: Saloni Watson DO Pat. Stat.:Inpatient Room:F8-14 Study Status:Final Echo Event ID:[id number] Order ID:[id number] Reason for Study:Mitral Regurgitation, Tricuspid Regurgitation History / Clinical:COPD, Coronary Artery Disease, Carotid endarterectomy Procedures:Transesophageal Echo with Colorflow Doppler Race: SUMMARY: MV clip at A2-P2. Mild to moderate mitral regurgitation. Severe tricuspid regurgitation FINDINGS: ROSAMARIA:The attending hobbing press operator performed the ROSAMARIA procedure and waspresent for the entire duration. The patient was counseledand an informed consent was obtained. Topical and intravenousanesthesia was administered. The esophagus was intubatedwithout difficulty. The probe was passed to the gastricfundus and all standard echocardiographic views wereobtained. The patient tolerated the procedure well. LV: LV size is normal. LV systolic function is lower limits of normal.Overall wall motion is lower limits of normal. EstimatedEF is 50-54%. Septal motion is paradoxical. RV: RV size is severely enlarged. RV systolic function is depressed. LA: LA volume is enlarged. No thrombus or mass is visualized in theLA or LA appendage. RA: RA volume is enlarged. AO: Aortic root diameter is normal in size. Mild atherosclerotic changesseen in the aortic arch and descending aorta. KOREY: No pericardial effusion. AV: Focal calcification of AV leaflets. MV: MV clip at A2-P2. Mild to moderate mitral regurgitation. PV: No structural PV abnormalities noted. TV: Dilated tricuspid annulus with poor coaptation. Severe tricuspidregurgitation ROSAMARIA: Anesthesia: Per Anesthesia ASA Class: 4 Physician: Oniel Liz MD Supervisor Publications Production: Saloni Watson DO Pre TEEBP HR Post ROSAMARIA BP HR 118/77 84 119/58 76 Meds:Viscous xylocaine, Cetacaine spray to oropharynx, Per Anesthesia Complications: None Condition: Stable Comments:Severe TR Signed 01/04/2017 01:52 PM Oniel Liz MD Procedure Note Interface, Radiology Results In - 01/04/2017 1:53 PM CDT Transesophageal Echo Report [address], [place], [place] [address] Pat.Name: GILMA MELLO [facility].ID: [id number] .Date: 01/04/2017 Refer.MD: GENO POWERS MD Exam Time: 8:52:00 AM Study Type:ROSAMARIA Height: 66in Weight: 219lb BSA: 2.08 m2 Age: 4 1935,81Y Sex: FEMALE BP: 118/77 HR: 84 bpm Sonogrphr: Saloni Watson. Stat.:Inpatient Room: [facility] Study Status:Final Echo Event ID:[id number] Order ID: [id number] Reason for Study:Mitral Regurgitation, Tricuspid Regurgitation History / Clinical:COPD, Coronary Artery Disease, Carotid endarterectomy Procedures:Transesophageal Echo with Colorflow Doppler Race: SUMMARY: MV clip at A2-P2. Mild to moderate mitral regurgitation. Severe tricuspid regurgitation FINDINGS: ROSAMARIA: The attending hobbing press operator performed the ROSAMARIA procedure and was present for the entire duration. The patient was counseled and an informed consent was obtained. Topical and intravenous anesthesia was administered. The esophagus was intubated without difficulty. The probe was passed to the gastric fundus and all standard echocardiographic views were obtained. The patient tolerated the procedure well. LV: LV size is normal. LV systolic function is lower limits of normal. Overall wall motion is lower limits of normal. Estimated EF is 50-54%. Septal motion is paradoxical. RV: RV size is severely enlarged. RV systolic function is depressed. LA: LA volume is enlarged. No thrombus or mass is visualized in the LA or LA appendage. RA: RA volume is enlarged. AO: Aortic root diameter is normal in size. Mild atherosclerotic changes seen in the aortic arch and descending aorta. KOREY: No pericardial effusion. AV: Focal calcification of AV leaflets. MV: MV clip at A2-P2. Mild to moderate mitral regurgitation. PV: No structural PV abnormalities noted. TV: Dilated tricuspid annulus with poor coaptation. Severe tricuspid regurgitation ROSAMARIA: Anesthesia: Per Anesthesia ASA Class: 4 Physician: Oniel Liz MD Supervisor Publications Production: Saloni Watson DO Pre ROSAMARIA BP HR Post ROSAMARIA BP HR 118/77 84 119/58 76 Meds: Viscous xylocaine, Cetacaine spray to oropharynx, Per Anesthesia Complications: None Condition: Stable Comments: Severe TR Signed 01/04/2017 01:52 PM Oniel Liz MD * Vancomycin level, trough (01/03/2017 11:29 AM) Component Value Ref Range Vancomycin, trough 10.8 10.0 - 20.0 ug/mL Comment: Therapeutic Ranges: Peak 30.0 - 40.0 ug/mL Trough 10.0 - 20.0 ug/mL Specimen Performing Laboratory Serum [facility] DEPARTMENT OF PATHOLOGY AND GENOMIC MEDICINE [address] [place] [id number] * XR Chest 1 Vw Portable (01/02/2017 6:08 PM) Only the most recent of 3 results within the time period is included. Specimen Performing Laboratory [address] [address] Narrative Examination:XR CHEST 1 VW PORTABLE Clinical history:"SHORTNESS OF BREATH" Comparison:12/29/2016 IMPRESSION: There are no new alveolar opacities within either lung.There is a tiny left pleural effusion. Tiny right pleural effusion is seen. No pneumothoraces are identified. The cardiomediastinal silhouette is unchanged. The bones of the chest are unchanged. [facility]-[id number] Procedure Note Hm Interface, Radiology Results Incoming - 01/02/2017 6:39 PM CDT Examination: XR CHEST 1 VW PORTABLE Clinical history: "SHORTNESS OF BREATH" Comparison: 12/29/2016 IMPRESSION: There are no new alveolar opacities within either lung. There is a tiny left pleural effusion. Tiny right pleural effusion is seen. No pneumothoraces are identified. The cardiomediastinal silhouette is unchanged. The bones of the chest are unchanged. [facility]-[id number] * Arterial blood gas, pulmonary func dept (01/01/2017 5:00 PM) Component Value Ref Range pH, arterial 7.377 7.350 - 7.450 units pCO2, arterial 42.3 35.0 - 45.0 mmHg pO2, arterial 114.0 (H) 80.0 - 90.0 mmHg O2 saturation, arterial 98.8 95.0 - 100.0 % Base excess, arterial -0.5 -2.0 - 2.0 mEq/L Bicarbonate 24.9 21.0 - 28.0 mEq/L O2 content 18.6 VOL% Carboxyhemoglobin 0.9 0.0 - 1.4 % Comment: Reference Ranges: Carboxyhemoglobin Non smoker: 0.0 - 2.0% Smoker: 2.1 - 5.0% Heavy smoker: 5.1 - 9% Methemoglobin 1.0 0.0 - 1.0 % Hemoglobin, blood gas 13.6 12.0 - 16.0 g/dL Specimen Performing Laboratory Blood [facility] DEPARTMENT OF PATHOLOGY AND [facility] MEDICINE [address] [place] [phone] * LDH (12/31/2016 8:02 PM) Component Value Ref Range LDH 283 (H) 87 - 225 U/L Specimen Performing Laboratory Plasma specimen [facility] DEPARTMENT OF PATHOLOGY AND [facility] MEDICINE [address] [place] [address] * Osmolality, serum (12/31/2016 8:01 PM) Component Value Ref Range Osmolality 310 (H) 275 - 295 mOsm/kg Specimen Performing Laboratory Blood [facility] DEPARTMENT OF PATHOLOGY AND [facility] MEDICINE [address] [place] [address] * Potassium, urine, random (12/31/2016 6:37 PM) Component Value Ref Range Potassium, urine, random 39.1 mEq/L Specimen Performing Laboratory Urine [facility] DEPARTMENT PATHOLOGY [facility] MEDICINE [address] [place] [address] * Osmolality, urine (12/31/2016 6:37 PM) Only the most recent of 2 results within the time period is included. Component Value Ref Range Osmolality, urine 336 50 - 1,400 mOsm/kg Specimen Performing Laboratory Urine [facility] DEPARTMENT OF PATHOLOGY AND [facility] MEDICINE [address] [place] [address] * ECG ED Preliminary Interpretation - NOT AN ORDER (12/30/2016 10:52 AM) Narrative Rojas Rod MD 12/30/2016 10:52 AM ECG ED Preliminary Interpretation - Not an Order Performed by: ROJAS ROD Authorized by: ROJAS ROD ECG reviewed by ED Physician in the absence of a hobbing press operator: yes Previous ECG: Previous ECG:Unavailable Interpretation: Interpretation: abnormal Rate: ECG rate:80 ECG rate assessment: normal Rhythm: Rhythm: atrial fibrillation QRS: QRS axis:Left (low voltage ) ST segments: ST segments:Normal T waves: T waves: normal * CK-MB (12/30/2016 2:45 AM) Component Value Ref Range CK-MB 2.2 1.0 - 5.3 ng/mL Specimen Performing Laboratory Plasma specimen [facility] DEPARTMENT OF PATHOLOGY [facility] [address] [place] [address] * Troponin (12/30/2016 2:45 AM) Only the most recent of 7 results within the time period is included. Component Value Ref Range Troponin <0.30 0.00 - 0.30 ng/mL Comment: 0.30 - 1.49 ng/ml May indicate increased risk of acute coronary syndrome. >=1.5 ng/ml Consistent with acute myocardial infarction. The diagnostic value of a single normal or non-diagnostic result is questionable. Serial samples at 2-6 hour intervals are required to rule out acute myocardial injury. Specimen Performing Laboratory Plasma specimen [facility] [place]PARTMENT [place] [address] * Thyroid stimulating hormone (12/30/2016 2:45 AM) Only the most recent of 2 results within the time period is included. Component Value Ref Range TSH 1.62 0.27 - 4.20 uIU/mL Specimen Performing Laboratory Plasma specimen [facility] [place] [address] * T4, free (12/30/2016 2:45 AM) Only the most recent of 2 results within the time period is included. Component Value Ref Range T4, free 1.3 0.9 - 1.7 ng/dL Specimen Performing Laboratory Plasma specimen [facility] [address] * Phosphorus level (12/30/2016 2:45 AM) Only the most recent of 3 results within the time period is included. Component Value Ref Range Phosphorus 4.2 2.4 - 4.5 mg/dL Specimen Performing Laboratory Plasma specimen [facility] [place] [address] * Magnesium level (12/30/2016 2:45 AM) Only the most recent of 7 results within the time period is included. Component Value Ref Range Magnesium 2.1 1.6 - 2.4 mg/dL Specimen Performing Laboratory Plasma specimen [facility] [place] [address] * Creatine kinase, total (CPK) (12/30/2016 2:45 AM) Only the most recent of 3 results within the time period is included. Component Value Ref Range Creatine kinase 17 (L) 26 - 192 U/L Specimen Performing Laboratory Plasma specimen [facility] [place] [address] * Hemoglobin A1c (12/30/2016 2:43 AM) Only the most recent of 2 results within the time period is included. Component Value Ref Range Hemoglobin A1C 7.7 (H) 4.0 - 5.6 % Comment: HbA1c cutoffs for diagnosing diabetes: 4.0% - 5.6%=normal 5.7% - 6.4%=increased risk for diabetes (prediabetes) >=6.5%=diabetes Goals for glycemic control (ADA 2016) < 7.0% Target for non adults with diabetes. More or less stringent targets may be appropriate for individual patients. <7.5% Target for Children and adolescents with type 1 diabetes. Specimen Performing Laboratory Blood [facility] DEPARTMENT OF PATHOLOGY AND GENOMIC MEDICINE [address] [place] [address] * Potassium level (12/29/2016 10:04 PM) Component Value Ref Range Potassium 5.5 (H) 3.5 - 5.0 mEq/L Specimen Performing Laboratory Plasma specimen [facility] DEPARTMENT OF PATHOLOGY AND [facility] [address] [place] [address] * PV duplex venous lower extremity (12/29/2016 9:30 PM) Only the most recent of 2 results within the time period is included. Specimen Performing Laboratory [facility] [address] [place] [address] Narrative Vascular Ultrasound Laboratory Lower Extremity Venous Report [address] [place] [address] Pat.Name:GILMA MELLO Pat.ID:[id number] .Date: 12/29/2016 Refer.MD:GENO POWERS MD Exam Time: 8:35:00 PMStudy Type:LE Venous Height:66inDOBAge:[age]Y Sex: FEMALESonogrphr: Aime Steve Amos Pat. Stat.:Inpatient Room:[place] [address] TapeVol: DU, CPT - 4: 47530 Echo Event ID:[id number] Order ID:[id number] Reason for Study:HTN, HLD, CKD, worsening SOB and bilateral lower extremity edema for the past two weeks. Bilateral calf ulcers Race:C SUMMARY: DUPLEX SCAN OBSERVATIONS Deep VeinsSuperficial Veins RightLeft RightLeft EIVGSV (prox) NormalNormal CFV Normal Normal (above knee) Femoral Normal Normal GSV (dist) Not Visualized Not Visualized Profunda Normal Normal (below knee) Popliteal Normal Normal PT (prox) Not Visualized Not visualizedSSV PT (dist) Not Visualized Not Visualized Peroneal Not Visualized Not Visualized RIGHT: There is normal compressibility with no evidence of echogenic material noted within the lumen of the visualized veins. Colorflow and Doppler signals are pulsatile. The proximal greater saphenous vein is visualized, however the remaining has been removed. LEFT: There is normal compressibility with no evidence of echogenic material noted within the lumen of the visualized veins. Colorflow and Doppler signals are pulsatile. The proximal greater saphenous vein is visualized, however the remaining has been removed. PRELIMINARY FINDINGS 1. No evidence of thrombus in the visualized veins 2. Pulsatile Doppler signals, bilaterally 3. Limited exam due to extensive edema, and dressings/ulcers below the knee. PHYSICIAN INTERPRETATION 1.Venous examination of the both lower extremities demonstrates no evidence of venous thrombosis. The calf veins were not visualized. Signed 12/29/2016 11:05 PM Joel Mendoza MD Procedure Note Interface, Radiology Results In - 12/29/2016 11:05 PM CDT Vascular Ultrasound Laboratory Lower Extremity Venous Report [address] [place] [address] Pat.Name: GILMA MELLO [place].ID: [id number] .Date: 12/29/2016 Refer.MD: GENO POWERS MD Exam Time: 8:35:00 PM Study Type:LE Venous Height: 66in Age: 4 1935,81Y Sex: FEMALE Sonogrphr: Aime Steve RVT Pat. Stat.:Inpatient Room: [id number] Tape Vol: VB, CPT - 4: 13432 Echo Event ID:[id number] Order ID: [id number] Reason for Study:HTN, HLD, CKD, worsening SOB and bilateral lower extremity edema for the past two weeks. Bilateral calf ulcers Race: C SUMMARY: DUPLEX SCAN OBSERVATIONS Deep Veins Superficial Veins Right Left Right Left EIV GSV (prox) Normal Normal CFV Normal Normal (above knee) Femoral Normal Normal GSV (dist) Not Visualized Not Visualized Profunda Normal Normal (below knee) Popliteal Normal Normal PT (prox) Not Visualized Not visualized SSV PT (dist) Not Visualized Not Visualized Peroneal Not Visualized Not Visualized RIGHT: There is normal compressibility with no evidence of echogenic material noted within the lumen of the visualized veins. Colorflow and Doppler signals are pulsatile. The proximal greater saphenous vein is visualized, however the remaining has been removed. LEFT: There is normal compressibility with no evidence of echogenic material noted within the lumen of the visualized veins. Colorflow and Doppler signals are pulsatile. The proximal greater saphenous vein is visualized, however the remaining has been removed. PRELIMINARY FINDINGS 1. No evidence of thrombus in the visualized veins 2. Pulsatile Doppler signals, bilaterally 3. Limited exam due to extensive edema, and dressings/ulcers below the knee. PHYSICIAN INTERPRETATION 1. Venous examination of the both lower extremities demonstrates no evidence of venous thrombosis. The calf veins were not visualized. Signed 12/29/2016 11:05 PM Joel Mendoza MD * Echocardiogram complete w contrast and 3D if needed (12/29/2016 8:55 PM) Specimen Performing Laboratory [facility] [address] [place] [address] Narrative Echocardiography Report [address] [place] [address] Pat.Name:GILMA MELLO Pat.ID:[id number] .Date: 12/29/2016 Refer.MD:GENO POWERS MD Exam Time: 8:34:00 PMStudy Type:Routine Echo Height:65inWeight:200lb BSA: 1.98 m2 DOBAge:[age]Y Sex: FEMALEBP: 124/64 HR:82 bpmSonogrphr: FAUSTINO Lott, ARMANDO Pat. Stat.:Inpatient Room:[id number] CPT - 4: 73475, [id number] Status:Final Echo Event ID:[id number] Order ID:[id number] Reason for Study:SOB, hx of Mitral clip. History / Clinical:COPD, Coronary Artery Disease, Carotid endarterectomy Procedures:2D Echo, Colorflow Doppler, Portable Race:C SUMMARY: LV systolic function is mild to moderately depressed. RV systolic function is moderately depressed. MitraClip noted within the mitral valve. Difficult to assess severity of mitral regurgitation, it is at least moderate. Moderate mitral stenosis. Moderate tricuspid regurgitation Estimated PA systolic pressure is 41 mmHg, assuming a mean RAP of 25 mmHg. FINDINGS: LV: LV size is normal. There is mild concentric LV hypertrophy. LVsystolic function is mild to moderately depressed. Overallwall motion is mildly hypokinetic. Estimated EF is 40-44%.Septal motion is paradoxical secondary to RV systolicpressure overload. RV: RV size is moderately enlarged. RV systolic function is moderatelydepressed. RV wall motion is moderately hypokinetic. LA: LA volume is severely enlarged. RA: RA volume is severely enlarged. AO: Aortic root diameter is normal. KOREY: No pericardial effusion. AV: Mild thickening and calcification of AV leaflets. MV: MitraClip noted within the mitral valve. Difficult to assess severityof mitral regurgitation, it is at least moderate. Moderatemitral stenosis. Estimated mean mitral valve gradient8 mmHg at a heart rate of 76 b/min. PV: Pulmonic valve not well seen. TV: No structural TV abnormalities noted. Moderate tricuspid regurgitation Vanessa: Unable to assess diastolic function. Other:Estimated PA systolic pressure is 41 mmHg, assuming a mean RAPof 25 mmHg. MEASUREMENTS: 2D Parasternal Long [place] Ao An2 cmLVPWd 1.2 cm LVOT 1.8 cmLA Ds 6.7 cm LVIDd5 cmIndex 2.5 cm/m Ao Rtd 2.8 cm Index1.4 cm/m LVIDs3.8 cmLV Mass 212.2 g(87-129) LV%fs 24.2 % LVM Index 107.2 g/m2 IVSd 1.1 cmRWT 0.5 LA Sng Plane LA Area 38.3 cm2(8.8-23.4) LA Vol 156.7 ml Index79.1 ml/m LA LngAx 7.8 cm RA Sng Plane RA Area 35.8 cm2(8.3-19.5) RA Vol 138.3 ml Index69.9 ml/m RA LngAx 7.8 cm DOPPLER LVOT Stroke Vol LVOT 1.8 cmLVOT CO 3 l/min LVOT TVI14.4 cmLVOT CI 1.5 l/m/m2 LVOT Tm292 msecHR 82 bpm LVOT SV 36.8 ml MV For Flow/Valve Assess MV pkVel 216.9 cm/sMV Mean G 7.7 mmHg MV pkPG 18.8 mmHgMV TVI 43.5 cm Signed 12/30/2016 02:42 PM Alix Porras M.D. Procedure Note Interface, Radiology Results In - 12/30/2016 2:42 PM CDT Echocardiography Report [address] [place] [address] Pat.Name: GILMA MELLO Pat.ID: [id number] .Date: 12/29/2016 Refer.MD: GENO POWERS MD Exam Time: 8:34:00 PM Study Type:Routine Echo Height: 65in Weight: 200lb BSA: 1.98 m2 Age: 4 1935,81Y Sex: FEMALE BP: 124/64 HR: 82 bpm Sonogrphr: FAUSTINO Lott RVS Pat. Stat.:Inpatient Room: [place] [address] CPT - 4: 72803, 76232 Study Status:Final Echo Event ID:[id number] Order ID: [id number] Reason for Study:SOB, hx of Mitral clip. History / Clinical:COPD, Coronary Artery Disease, Carotid endarterectomy Procedures:2D Echo, Colorflow Doppler, Portable Race: C SUMMARY: LV systolic function is mild to moderately depressed. RV systolic function is moderately depressed. MitraClip noted within the mitral valve. Difficult to assess severity of mitral regurgitation, it is at least moderate. Moderate mitral stenosis. Moderate tricuspid regurgitation Estimated PA systolic pressure is 41 mmHg, assuming a mean RAP of 25 mmHg. FINDINGS: LV: LV size is normal. There is mild concentric LV hypertrophy. LV systolic function is mild to moderately depressed. Overall wall motion is mildly hypokinetic. Estimated EF is 40-44%. Septal motion is paradoxical secondary to RV systolic pressure overload. RV: RV size is moderately enlarged. RV systolic function is moderately depressed. RV wall motion is moderately hypokinetic. LA: LA volume is severely enlarged. RA: RA volume is severely enlarged. AO: Aortic root diameter is normal. KOREY: No pericardial effusion. AV: Mild thickening and calcification of AV leaflets. MV: MitraClip noted within the mitral valve. Difficult to assess severity of mitral regurgitation, it is at least moderate. Moderate mitral stenosis. Estimated mean mitral valve gradient 8 mmHg at a heart rate of 76 b/min. PV: Pulmonic valve not well seen. TV: No structural TV abnormalities noted. Moderate tricuspid regurgitation Vanessa: Unable to assess diastolic function. Other: Estimated PA systolic pressure is 41 mmHg, assuming a mean RAP of 25 mmHg. MEASUREMENTS: 2D Parasternal [place] Ao An 2 cm LVPWd 1.2 cm LVOT 1.8 cm LA Ds 6.7 cm LVIDd 5 cm Index 2.5 cm/m Ao Rtd 2.8 cm Index 1.4 cm/m LVIDs 3.8 cm LV Mass 212.2 g (87-129) LV%fs 24.2 % LVM Index 107.2 g/m2 IVSd 1.1 cm RWT 0.5 LA Sng Plane LA Area 38.3 cm2 (8.8-23.4) LA Vol 156.7 ml Index 79.1 ml/m LA LngAx 7.8 cm RA Sng Plane RA Area 35.8 cm2 (8.3-19.5) RA Vol 138.3 ml Index 69.9 ml/m RA LngAx 7.8 cm DOPPLER LVOT Stroke Vol LVOT 1.8 cm LVOT CO 3 l/min LVOT TVI 14.4 cm LVOT CI 1.5 l/m/m2 LVOT Tm 292 msec HR 82 bpm LVOT SV 36.8 ml MV For Flow/Valve Assess MV pkVel 216.9 cm/s MV Mean G 7.7 mmHg MV pkPG 18.8 mmHg MV TVI 43.5 cm Signed 12/30/2016 02:42 PM Alix Porras M.D. * Lactic acid, I-Stat, venous (12/29/2016 8:16 PM) Component Value Ref Range Lactic acid, I-Stat, 3.1 (H) 0.5 - 2.2 mmol/L venous Specimen Performing Laboratory Blood [facility] DEPARTMENT OF PATHOLOGY AND GENOMIC MEDICINE [address] [place] [id number] * Sputum culture (12/29/2016 6:45 PM) Component Value Ref Range Sputum culture isolate Normal oral andrew isolated. Comment: Specimen Information Specimen Source: Sputum Specimen Site: Expectorated Specimen Performing Laboratory Sputum - Expectorated [facility] DEPARTMENT OF PATHOLOGY AND GENOMIC MEDICINE [address] [place] [address] * Gram stain (12/29/2016 6:45 PM) Only the most recent of 3 results within the time period is included. Component Value Ref Range Gram stain isolate Few WBC's Rare Gram negative rods Comment: Specimen Information Specimen Source: Sputum Specimen Site: Expectorated Specimen Performing Laboratory Sputum - Expectorated [facility] [place]PARTMENT [place] [address] * Lactic acid level (12/29/2016 4:07 PM) Only the most recent of 2 results within the time period is included. Component Value Ref Range Lactic acid 4.0 (HH) 0.5 - 2.2 mmol/L Specimen Performing Laboratory Plasma specimen [facility] [place] [address] * Respiratory pathogen panel (12/29/2016 3:50 PM) Only the most recent of 2 results within the time period is included. Component Value Ref Range Respiratory pathogen Negative for all pathogens tested: panel Negative for Adenovirus Negative for Coronavirus HKU1 Negative for Coronavirus NL63 Negative for Coronavirus 229E Negative for Coronavirus OC43 Negative for Human Metapneumovirus Negative for Rhinovirus/Enterovirus Negative for Influenza A Negative for Influenza A/H1 Negative for Influenza A/H3 Negative for Influenza A/H1-2009 Negative for Influenza B Negative for Parainfluenza Virus 1 Negative for Parainfluenza Virus 2 Negative for Parainfluenza Virus 3 Negative for Parainfluenza Virus 4 Negative for Respiratory Syncytial Virus Negative for Bordetella pertussis Negative for Chlamydophila pneumoniae Negative for Mycoplasma pneumoniae This real-time PCR assay detects the presence of nucleic acids (RNA or DNA) for the respiratory pathogens listed. A result of "Not-detected" does not exclude the possibility of the presence of one or more pathogens at concentrations less than the detectable limits of the assay. Comment: Specimen Information Specimen Source: Nares Specimen Site: Right and left lobes Specimen Performing Laboratory Nares - Right and left [facility] DEPARTMENT OF PATHOLOGY AND GENOMIC MEDICINE lobes [address] [place] [address] * Blood culture, aerobic & anaerobic (12/29/2016 2:13 PM) Only the most recent of 3 results within the time period is included. Component Value Ref Range Blood culture isolate No growth after 5 days of incubation. Comment: Specimen Information Specimen Source: Blood Specimen Site: Antecubital, right Specimen Performing Laboratory Blood - Antecubital, [facility] DEPARTMENT OF PATHOLOGY AND [place] [address] * Urinalysis screen and microscopy, with reflex to culture (12/29/2016 2:00 PM) Only the most recent of 3 results within the time period is included. Component Value Ref Range Specimen site Fuller Color, UA Karolina Appearance, UA Clear Specific gravity, UA 1.015 1.001 - 1.035 pH, UA 5.0 5.0 - 8.5 Protein, UA 1+ (A) Negative Glucose, UA Negative Negative Ketones, UA Negative Negative Bilirubin, UA Negative Negative Blood, UA Negative Negative Nitrite, UA Negative Negative Urobilinogen, UA 2.0 (A) <2.0 Leukocyte esterase, UA Negative Negative WBC, UA None seen 0 - 4 /HPF RBC, UA 1 0 - 2 /HPF Bacteria, UA Moderate (A) None seen Yeast, UA None seen Yeast with pseudohyphae, None seen UA Hyaline casts, UA >20 (A) /LPF Specimen Performing Laboratory Urine [facility] DEPARTMENT OF PATHOLOGY AND GENOMIC MEDICINE [address] [place] [address] * Urine culture (12/29/2016 2:00 PM) Only the most recent of 3 results within the time period is included. Component Value Ref Range Urine culture isolate No growth after 2 days. Comment: Specimen Information Specimen Source: Urine Specimen Site: Clean catch Specimen Performing Laboratory Urine [facility] DEPARTMENT OF PATHOLOGY AND GENOMIC MEDICINE [address] [place] [address] * Prothrombin time with INR (12/29/2016 11:40 AM) Only the most recent of 3 results within the time period is included. Component Value Ref Range Prothrombin time 16.1 (H) 12.0 - 15.0 sec INR 1.3 Comment: The International Normalized Ratio (INR) is a therapeutic monitoring tool for patients who are stable on oral anticoagulant therapy. An INR of 2.0-3.0 is suggested for deep vein thrombosis/pulmonary embolism. Specimen Performing Laboratory Blood [facility] DEPARTMENT OF PATHOLOGY AND GENOMIC MEDICINE [address] [place] [id number] * B natriuretic peptide (12/29/2016 11:40 AM) Only the most recent of 4 results within the time period is included. Component Value Ref Range BNP 1,415 (H) 0 - 100 pg/mL Specimen Performing Laboratory Blood [facility] DEPARTMENT OF PATHOLOGY AND GENOMIC MEDICINE [address] [place] [address] * Comprehensive metabolic panel (12/29/2016 11:40 AM) Only the most recent of 4 results within the time period is included. Component Value Ref Range Sodium 135 135 - 148 mEq/L Potassium 6.0 (HH) 3.5 - 5.0 mEq/L Chloride 94 (L) 98 - 112 mEq/L CO2 22 (L) 24 - 31 mEq/L Anion gap 19 (H) 7 - 15 mEq/L Comment: Starting from July , anion gap calculation no longer incorporates potassium. Please note the change. BUN 66 (H) 8 - 23 mg/dL Creatinine 2.4 (H) 0.5 - 0.9 mg/dL Glucose 167 (H) 65 - 99 mg/dL Calcium 10.3 (H) 8.8 - 10.2 mg/dL Protein 7.3 6.3 - 8.3 g/dL Comment: 4.6-7.0 g/dL 1 week 4.4-7.6 g/dL 7 months-1year 5.1-7.3 g/dL 1-2 years 5.6-7.5 g/dL >3 years 6.0-8.0 g/dL 18-150 6.3-8.3 g/dL Albumin 2.7 (L) 3.5 - 5.0 g/dL A/G ratio 0.6 (L) 0.7 - 3.8 Alkaline phosphatase 232 (H) 35 - 104 U/L AST 31 10 - 35 U/L ALT 15 5 - 50 U/L Total bilirubin 4.6 (H) 0.0 - 1.2 mg/dL Specimen Performing Laboratory Plasma specimen [facility] DEPARTMENT OF PATHOLOGY AND GENOMIC MEDICINE [address] [place] [address] * ECG 12 lead (12/29/2016 11:22 AM) Only the most recent of 8 results within the time period is included. Component Value Ref Range Ventricular rate 80 Atrial rate 159 QRSD interval 74 QT interval 382 QTC interval 440 QRS axis 1 -32 T wave axis 41 EKG impression Atrial fibrillation-Left axis deviation-Low voltage QRS-Cannot rule out Anterior infarct (cited on or before 08-JUN-2016)-Abnormal ECG-In automated comparison with ECG of 20-JUN-2016 06:35,-Nonspecific T wave abnormality no longer evident in Lateral leads- Specimen Performing Laboratory [facility] [address] [place] [address] * Ancilliary Performed Echocardiogram complete w contrast and 3D if needed (07/2016 9:58 AM) Specimen Performing Laboratory [facility] [address] [place] [id number] Narrative Echocardiography Report [address] [place] [address] [place] [address] Pat.Name:GILMA MELLO Pat.ID:[id number] St.Date: 08/03/2016Refer.MD:COLIN CESAR MD Exam Time: 9:35:00 AMStudy Type:Routine Echo Height:66inWeight:190lb BSA: 1.96 m2 DOBAge:1935,80Y Sex: FEMALEBP: 135/68 Sonogrphr: FAUSTINO Rousseau Pat. Stat.:Outpatient Study Status:Revised Echo Event ID:[id number] Order ID:[id number] Reason for Study:Mitral valve clip History / Clinical:COPD, Coronary Artery Disease, Carotid endarterectomy Procedures:2D Echo, Colorflow Doppler Race:C FINDINGS: LV: LV size is normal. LV function is normal. Overall wall motionis normal. Estimated EF is 55%. RV: RV size is enlarged. RV function is mild to moderately depressed.RV wall motion ishypokinetic. LA: LA volume is severely enlarged. RA: RA volume is severely enlarged. AO: Aortic root diameter is normal. KOREY: No pericardial effusion. IAS:Atrial septum is normal. AV: No structural AV abnormalities noted. A trace of aortic regurgitation. MV: Mitral valve clip present; trace MR noted. PV: No structural PV abnormalities noted. TV: No structural TV abnormalities noted. Mild tricuspid regurgitation Other:Estimated PA systolic pressure is 32 mmHg, assuming a mean RAPof 10 mmHg. MEASUREMENTS: 2D Parasternal Long [place] LVOT 2.1 cmLA Ds 6.3 cm LVIDd5 cmIndex 2.5 cm/m Ao An1.8 cm LVIDs3.6 cmAo Rtd 2.5 cm Index1.3 cm/m LV%fs 27.5 % LV Mass 177.6 g(87-129) IVSd 1.1 cmLVM Index 90.6 g/m2 LVPWd0.9 cm LA Sng Plane LA Area 38.2 cm2(8.8-23.4) LA Vol 141.9 ml Index72.4 ml/m LA LngAx 8.3 cm RA Sng Plane RA Area 34.5 cm2(8.3-19.5) RA Vol 157.9 ml Index80.5 ml/m RA LngAx 6.4 cm DOPPLER LVOT Stroke Vol LVOT 2.1 cmLVOT CO 3.5 l/min LVOT TVI12.2 cmLVOT CI 1.8 l/m/m2 LVOT Tm329 msecHR 83 bpm LVOT SV 42.1 ml MV For Flow/Valve Assess MV pkVel 202.1 cm/sMV Dec T 326 msec MV pkPG 16.3 mmHgMV TVI 42.3 cm MV Mean G5.5 mmHgMV Area P1/2t2.3 cm2(4-6) Signed 08/04/2016 3:38:51 PM August Gabriel M.D. Revised Procedure Note Interface, Radiology Results In - 08/04/2016 3:39 PM CDT Echocardiography Report [address] [place] [address] Pat.Name: GILMA MELLO Pat.ID: [id number] .Date: 08/03/2016 Refer.MD: COLIN CESAR MD Exam Time: 9:35:00 AM Study Type:Routine Echo Height: 66in Weight: 190lb BSA: 1.96 m2 Age: 4 1935,80Y Sex: FEMALE BP: 135/68 Sonogrphr: FAUSTINO Rousseau Pat. Stat.:Outpatient Study Status:Revised Echo Event ID:[id number] Order ID: [id number] Reason for Study:Mitral valve clip History / Clinical:COPD, Coronary Artery Disease, Carotid endarterectomy Procedures:2D Echo, Colorflow Doppler Race: C FINDINGS: LV: LV size is normal. LV function is normal. Overall wall motion is normal. Estimated EF is 55%. RV: RV size is enlarged. RV function is mild to moderately depressed. RV wall motion is hypokinetic. LA: LA volume is severely enlarged. RA: RA volume is severely enlarged. AO: Aortic root diameter is normal. KOREY: No pericardial effusion. IAS: Atrial septum is normal. AV: No structural AV abnormalities noted. A trace of aortic regurgitation. MV: Mitral valve clip present; trace MR noted. PV: No structural PV abnormalities noted. TV: No structural TV abnormalities noted. Mild tricuspid regurgitation Other: Estimated PA systolic pressure is 32 mmHg, assuming a mean RAP of 10 mmHg. MEASUREMENTS: 2D Parasternal Long [place] LVOT 2.1 cm LA Ds 6.3 cm LVIDd 5 cm Index 2.5 cm/m Ao An 1.8 cm LVIDs 3.6 cm Ao Rtd 2.5 cm Index 1.3 cm/m LV%fs 27.5 % LV Mass 177.6 g (87-129) IVSd 1.1 cm LVM Index 90.6 g/m2 LVPWd 0.9 cm LA Sng Plane LA Area 38.2 cm2 (8.8-23.4) LA Vol 141.9 ml Index 72.4 ml/m LA LngAx 8.3 cm RA Sng Plane RA Area 34.5 cm2 (8.3-19.5) RA Vol 157.9 ml Index 80.5 ml/m RA LngAx 6.4 cm DOPPLER LVOT Stroke Vol LVOT 2.1 cm LVOT CO 3.5 l/min LVOT TVI 12.2 cm LVOT CI 1.8 l/m/m2 LVOT Tm 329 msec HR 83 bpm LVOT SV 42.1 ml MV For Flow/Valve Assess MV pkVel 202.1 cm/s MV Dec T 326 msec MV pkPG 16.3 mmHg MV TVI 42.3 cm MV Mean G 5.5 mmHg MV Area P1/2t 2.3 cm2 (4-6) Signed 08/04/2016 3:38:51 PM August Gabriel M.D. Revised * Echocardiogram complete w contrast and 3D if needed (06/20/2016 2:51 PM) Specimen Performing Laboratory [facility] [address] [place] [address] Narrative Echocardiography Report [address] [place] [address] Pat.Name:GILMA MELLO.ID:[id number] .Date: 06/20/2016 Refer.MD:LAKISHA ROD MD Exam Time: 2:02:00 PMStudy Type:Routine Echo Height:167.64cmWeight:87kg BSA: 1.96 m2 DOBAge:1935,80Y Sex: FEMALEBP: 140/64 Sonogrphr: Jordana Jackman RDCS, RVSPat. Stat.:Inpatient Room:[id number] Status:Final Echo Event ID:[id number] Order ID:[id number] Reason for Study:S/P MITRAL CLIP History / Clinical:COPD, Coronary Artery Disease, Carotid endarterectomy Procedures:2D Echo, Colorflow Doppler Race:C FINDINGS: LV: LV size is normal. LV function is normal. Overall wall motionis normal. Estimated EF is 50-54%. Septal motion is paradoxicalsecondary to RV volume overload. RV: RV size is severely enlarged. RV function is lower limits of normal. LA: LA volume is severely enlarged. RA: RA volume is severely enlarged. AO: Aortic root diameter is normal. KOREY: No pericardial effusion. AV: Focal calcification of AV leaflets. Mild aortic regurgitation. MV: Clip seen. Eccentric mitral regurgitant jet directed anteriorlyand medially. Difficult to assess severity of MR,suspect a significant lesion. PV: No structural PV abnormalities noted. TV: Dilated tricuspid annulus. Severe tricuspid regurgitation Other:Estimated PA systolic pressure is 38-43 mmHg, assuming a meanRAP of 20-25 mmHg. MEASUREMENTS: 2D Parasternal [place] LVOT 2.1 cmIVSd 0.8 cm LVIDd4.6 cmIndex 2.3 cm/m LVPWd1.1 cm LVIDs3.2 cmLA Ds 6.3 cm LV%fs 30.7 % Ao Rtd 2.7 cm Index1.4 cm/m LA Sng Plane LA Area 42 cm2(8.8-23.4) LA Vol 184.9 ml Index94.3 ml/m LA LngAx 8 cm DOPPLER MV For Flow/Valve Assess MV pkVel 185.5 cm/sMV Dec T 348 msec MV pkPG 13.8 mmHgMV TVI 36.7 cm MV Mean G4.2 mmHgMV Area P1/2t2.2 cm2(4-6) Signed 06/20/2016 03:39 PM Calvin Palacio M.D. Procedure Note Interface, Radiology Results In - 06/20/2016 3:39 PM CDT Echocardiography Report [address] [place] [address] Pat.Name: GILMA MELLO Pat.ID: [id number] .Date: 06/20/2016 Refer.MD: LAKISHA ROD MD Exam Time: 2:02:00 PM Study Type:Routine Echo Height: 167.64cm Weight: 87kg BSA: 1.96 m2 Age: 4 1935,80Y Sex: FEMALE BP: 140/64 Sonogrphr: Jordana Jackman RDCS, RVSPat. Stat.:Inpatient Room: [id number] Study Status:Final Echo Event ID:[id number] Order ID: [id number] Reason for Study:S/P MITRAL CLIP History / Clinical:COPD, Coronary Artery Disease, Carotid endarterectomy Procedures:2D Echo, Colorflow Doppler Race: C FINDINGS: LV: LV size is normal. LV function is normal. Overall wall motion is normal. Estimated EF is 50-54%. Septal motion is paradoxical secondary to RV volume overload. RV: RV size is severely enlarged. RV function is lower limits of normal. LA: LA volume is severely enlarged. RA: RA volume is severely enlarged. AO: Aortic root diameter is normal. KOREY: No pericardial effusion. AV: Focal calcification of AV leaflets. Mild aortic regurgitation. MV: Clip seen. Eccentric mitral regurgitant jet directed anteriorly and medially. Difficult to assess severity of MR, suspect a significant lesion. PV: No structural PV abnormalities noted. TV: Dilated tricuspid annulus. Severe tricuspid regurgitation Other: Estimated PA systolic pressure is 38-43 mmHg, assuming a mean RAP of 20-25 mmHg. MEASUREMENTS: 2D Parasternal Long [place] LVOT 2.1 cm IVSd 0.8 cm LVIDd 4.6 cm Index 2.3 cm/m LVPWd 1.1 cm LVIDs 3.2 cm LA Ds 6.3 cm LV%fs 30.7 % Ao Rtd 2.7 cm Index 1.4 cm/m LA Sng Plane LA Area 42 cm2 (8.8-23.4) LA Vol 184.9 ml Index 94.3 ml/m LA LngAx 8 cm DOPPLER MV For Flow/Valve Assess MV pkVel 185.5 cm/s MV Dec T 348 msec MV pkPG 13.8 mmHg MV TVI 36.7 cm MV Mean G 4.2 mmHg MV Area P1/2t 2.2 cm2 (4-6) Signed 06/20/2016 03:39 PM Calvin Palacio M.D. * ECG Pre/Post Op (in AM) (06/19/2016 6:08 PM) Component Value Ref Range Ventricular rate 63 Atrial rate 208 QRSD interval 80 QT interval 466 QTC interval 476 QRS axis 1 -24 T wave axis 4 EKG impression Atrial fibrillation with premature ventricular or aberrantly conducted complexes-Septal infarct (cited on or before 08-JUN-2016)-Abnormal ECG-In automated comparison with ECG of 18-JUN-2016 08:10,-QRS duration has decreased- Specimen Performing Laboratory [facility] [address] [place] [address] * Echocardiogram transesophageal (06/19/2016 2:43 PM) Specimen Performing Laboratory [facility] [address] [place] [address] Narrative Transesophageal Echo Report [facility] [address], [place] [address] Pat.Name:GILMA MELLO Pat.ID:[id number] .Date: 06/19/2016 Refer.MD:COLIN CESAR MD Exam Time: 2:45:00 PMStudy Type:ROSAMARIA Height:66inWeight:192lb BSA: 1.97 m2 DOBAge:1935,80Y Sex: FEMALEBP: 125/80 HR:76 bpmSonogrphr: Luana Pat. Stat.:Inpatient CPT - 4: 04524 Study Status:Final Echo Event ID:[id number] Order ID:[id number] Reason for Study:MITRAL CLIP History / Clinical:COPD, Coronary Artery Disease, Carotid endarterectomy Procedures:Transesophageal Echo with Colorflow Doppler Race:C SUMMARY: Severe MR of mixed etiology (leaflet thickening with restricted posterior scallop).Systolic flow reversal within the LUPV. MitraClip X 1 to A2/P2.Residual MR is mild to moderate with small jets on either side of the single clip.Mean diastolic gradient 4 mmHg.TR remains severe at the end of the procedure. MitraClip Summary: Total ROSAMARIA duration approximately 2 hours. Compared to a typical ROSAMARIA study, this study included an additional 1.5 hours devoted to functional evaluation. Iatrogenic ASD with L to R shunt noted. FINDINGS: ROSAMARIA:The attending hobbing press operator performed the ROSAMARIA procedure and waspresent for the entire duration. The patient was counseledand an informed consent was obtained. Topical and intravenousanesthesia was administered. The esophagus was intubatedwithout difficulty by CV anesthesia; a breach in cleanequipment protocol was noted and the ROSAMARIA probe was removedand a second probe inserted by CV anesthesia. The probewas passed to the gastric fundus and all standard echocardiographicviews were obtained. The patient toleratedthe procedure well. LV: LV size is mildly enlarged. LV function is normal. Overall wallmotion is normal. Estimated EF is 60-64%. RV: RV size is moderately enlarged. RV function is mild to moderatelydepressed. LA: LA volume is enlarged. No thrombus or mass is visualized in theLA or LA appendage. RA: RA volume is enlarged. A Eustachian valve and/or Chiari networkis seen. This is a normal variant. AO: Mild atherosclerotic changes seen in the aortic arch and descendingaorta. KOREY: No pericardial effusion. IAS:Atrial septum is normal. AV: No structural AV abnormalities noted. MV: Mild thickening of mitral leaflets. Dilated annulus with poorcoaptation. Severe mitral regurgitation. Mixed etiologyof MR. PV: No structural PV abnormalities noted. TV: Dilated tricuspid annulus with poor coaptation. Severe tricuspidregurgitation ROSAMARIA: Anesthesia: Per Anesthesia Physician: Colin Cesar M.D. Pre TEEBP HR Post ROSAMARIA BP HR 125/80 76 125/80 70 Meds:Per Anesthesia Complications: None Condition: Stable Comments:ROSAMARIA probe inserted by anesthesia faculty. MEASUREMENTS: 2D Left Ventricle LVIDd5.4 cm (3.6-5.2) Signed 06/20/2016 10:52 AM Colin Cesar M.D. Procedure Note Interface, Radiology Results In - 06/20/2016 10:53 AM CDT Transesophageal Echo Report [address], [place], [place] [address] Pat.Name: GILMA MELLO Pat.ID: [id number] .Date: 06/19/2016 Refer.MD: COLIN CESAR MD Exam Time: 2:45:00 PM Study Type:ROSAMARIA Height: 66in Weight: 192lb BSA: 1.97 m2 Age: 4 1935,80Y Sex: FEMALE BP: 125/80 HR: 76 bpm Sonogrphr: Luana Hough. Stat.:Inpatient CPT - 4: 75104 Study Status:Final Echo Event ID:[id number] Order ID: [id number] Reason for Study:MITRAL CLIP History / Clinical:COPD, Coronary Artery Disease, Carotid endarterectomy Procedures:Transesophageal Echo with Colorflow Doppler Race: C SUMMARY: Severe MR of mixed etiology (leaflet thickening with restricted posterior scallop). Systolic flow reversal within the LUPV. MitraClip X 1 to A2/P2. Residual MR is mild to moderate with small jets on either side of the single clip. Mean diastolic gradient 4 mmHg. TR remains severe at the end of the procedure. MitraClip Summary: Total ROSAMARIA duration approximately 2 hours. Compared to a typical ROSAMARIA study, this study included an additional 1.5 hours devoted to functional evaluation. Iatrogenic ASD with L to R shunt noted. FINDINGS: ROSAMARIA: The attending hobbing press operator performed the ROSAMARIA procedure and was present for the entire duration. The patient was counseled and an informed consent was obtained. Topical and intravenous anesthesia was administered. The esophagus was intubated without difficulty by CV anesthesia; a breach in clean equipment protocol was noted and the ROSAMARIA probe was removed and a second probe inserted by CV anesthesia. The probe was passed to the gastric fundus and all standard echocardiographic views were obtained. The patient tolerated the procedure well. LV: LV size is mildly enlarged. LV function is normal. Overall wall motion is normal. Estimated EF is 60-64%. RV: RV size is moderately enlarged. RV function is mild to moderately depressed. LA: LA volume is enlarged. No thrombus or mass is visualized in the LA or LA appendage. RA: RA volume is enlarged. A Eustachian valve and/or Chiari network is seen. This is a normal variant. AO: Mild atherosclerotic changes seen in the aortic arch and descending aorta. KOREY: No pericardial effusion. IAS: Atrial septum is normal. AV: No structural AV abnormalities noted. MV: Mild thickening of mitral leaflets. Dilated annulus with poor coaptation. Severe mitral regurgitation. Mixed etiology of MR. PV: No structural PV abnormalities noted. TV: Dilated tricuspid annulus with poor coaptation. Severe tricuspid regurgitation ROSAMARIA: Anesthesia: Per Anesthesia Physician: Colin Cesar M.D. Pre ROSAMARIA BP HR Post ROSAMARIA BP HR 125/80 76 125/80 70 Meds: Per Anesthesia Complications: None Condition: Stable Comments: ROSAMARIA probe inserted by anesthesia faculty. MEASUREMENTS: 2D Left Ventricle LVIDd 5.4 cm (3.6-5.2) Signed 06/20/2016 10:52 AM Colin Cesar M.D. * Cv lab rep procedure (06/19/2016 1:27 PM) [facility] [address] [place] [address] Narrative 80 yo woman with severe MR, NYHA III, deemed high risk for surgery referred for MitraClip. 7Fr Sheath in RFV and 4 Fr sheath in LFA. RHC performed via RFV, pressures moderately elevated. Patient given heparin for full anti-coagulation. Trans-septal puncture performed under ROSAMARIA guidance with Raven/Preface. MItraClip sheath and delivery sytem inserted. Successful MItraClip x 1 at A2/P2 after 4 attempts to optimize MR/MS Residual mild MR/MS Catheters removed. Figure 8 sutre RFV Manual compression form LFA. * Potassium, syringe (06/19/2016 12:35 PM) Only the most recent of 2 results within the time period is included. Component Value Ref Range Potassium, syringe 4.1 3.5 - 5.0 mEq/L Specimen Performing Laboratory Blood [facility] DEPARTMENT OF PATHOLOGY AND [employer] [facility] [address] [place] [id number] * Ionized calcium, arterial (06/19/2016 12:35 PM) Only the most recent of 2 results within the time period is included. Component Value Ref Range Ionized calcium, arterial 1.15 1.11 - 1.32 mmol/L Specimen Performing Laboratory Blood [facility] DEPARTMENT OF PATHOLOGY AND [employer] [facility] [address] [place] [id number] * Sodium level, syringe (06/19/2016 11:12 AM) Component Value Ref Range Sodium, syringe 133 (L) 135 - 148 mEq/L Specimen Performing Laboratory Blood [facility] DEPARTMENT OF PATHOLOGY [address] [address] * Hemoglobin, syringe (06/19/2016 11:12 AM) Component Value Ref Range Hemoglobin, syringe 12.6 12.0 - 16.0 g/dL Specimen Performing Laboratory Blood [address] [address] * Glucose level, syringe (06/19/2016 11:12 AM) Component Value Ref Range Glucose, syringe 134 (H) 65 - 99 mg/dL Specimen Performing Laboratory Blood [facility] PATHOLOGY [address] [address] * Arterial blood gas, corrected (06/19/2016 11:12 AM) Component Value Ref Range pH, arterial 7.44 7.35 - 7.45 pCO2, arterial 38 35 - 45 mmHg pO2, arterial 373 (H) 80 - 90 mmHg Temperature, Celsius 36.5 Degrees C O2 saturation, arterial 100 95 - 100 % pH, arterial corrected 7.44 pCO2, arterial corrected 37 mmHg pO2, arterial corrected 370 mmHg Base excess, arterial 2 -2 - 2 mEq/L Specimen Performing Laboratory Blood [facility] [address] [address] * Partial thromboplastin time, activated (06/19/2016 3:30 AM) Only the most recent of 2 results within the time period is included. Component Value Ref Range PTT 37.1 (H) 23.0 - 36.0 sec Comment: PTT therapeutic range for unfractionated heparin is 61.0-112.0 seconds which corresponds to Anti-Xa 0.3-0.7 U/ml. Specimen Performing Laboratory Blood [facility] PATHOLOG[facility] [address] [address] * Type and screen (06/18/2016 1:41 PM) Component Value Ref Range ABO grouping O Rh type POS Antibody screen (gel) NEG Specimen Performing Laboratory [facility] PATHOLOG[facility] [address] [address] * XR Chest 2 Vw (06/18/2016 10:16 AM) Only the most recent of 3 results within the time period is included. Specimen [place] [address] Narrative XR CHEST 2 VW CLINICAL INDICATION:SHORTNESS OF BREATH COMPARISON:06/16/2016 IMPRESSION: The heart is moderately enlarged and stable in appearance with changes post CABG. Pulmonary vascularity is normal. There is no developing consolidation or effusion. There is stable patchy micronodular infiltrative changes at the left lung base more prominent in the right anterior lower lobe probably infectious or inflammatory and diminished from 06/14/2016. A stable granuloma is noted in the left upper lobe. Mild atherosclerotic disease remains present with osteopenia and stable degenerative changes of the spine. Thank you for allowing us to participate in the care of your patient. [facility]-[id number] Procedure Note Interface, Radiology Results Incoming - 06/18/2016 11:03 AM CDT XR CHEST 2 VW CLINICAL INDICATION: SHORTNESS OF BREATH COMPARISON: 06/16/2016 IMPRESSION: The heart is moderately enlarged and stable in appearance with changes post CABG. Pulmonary vascularity is normal. There is no developing consolidation or effusion. There is stable patchy micronodular infiltrative changes at the left lung base more prominent in the right anterior lower lobe probably infectious or inflammatory and diminished from 06/14/2016. A stable granuloma is noted in the left upper lobe. Mild atherosclerotic disease remains present with osteopenia and stable degenerative changes of the spine. Thank you for allowing us to participate in the care of your patient. [facility]-[id number] * Cv lab rep procedure (06/13/2016 5:38 PM) Specimen Performing Laboratory [facility] [address] [place] [address] Narrative Right heart filling pressure is moderately elevated. Pulmonary hypertension is moderate. Wedge pressure is moderate. Cardiac output is decreased. Coronary angiography - LM not selectively injected. - Occluded WHITAKER-LAD. - Patent SVG-D2 with retrograde filling of the LAD. - Patent SVG-OM2 - RCA with proximal stent and 40% in-stent restenosis.Mild non-obstructive distal disease. - Occluded SVG-RCA Right heart cath - Elevated right and left heart filling pressures. - Large V-waves in both the RA and PCW tracings - Depressed cardiac output (Alma Rosa). Disposition - Return for ongoing medical care and evaluation for mitral / tricuspid regurgitation. * Pv carotid duplex (06/13/2016 9:00 AM) Specimen Performing Laboratory [facility] [address] [place] [address] Narrative Vascular Ultrasound Laboratory Carotid Artery Duplex Report [address] [place] [address], [place] [address] For senior quality manager purposes, the categorization of the degree of the stenosis of this exam is based on criteria described in the IAC carotid stenosis grading white paper( www.intersocietal.org/Vascular) and Sneha Kiser., Rudi Boyer., et al. Carotid artery stenosis: morgan-scale and Doppler US diagnosis--Society of Radiologists in Ultrasound Consensus Conference. Radiology. 2003 Nov; 229(2):340-6. Pat.Name:GILMA MELLO Pat.ID:[id number] .Date: 06/13/2016 Refer.MD:VIRGINIA ROD MD Exam Time: 8:31:00 AMStudy Type:Carotid Height:66inDOBAge:1935,80Y Sex: FEMALESonogrphr: Shelbi Tejada RVT Pat. Stat.:Inpatient Room:[address] TapeVol: RF, CPT - 4: 89145 Echo Event ID:[id number] Order ID:[id number] Reason for Study:Worsening shortness of breath. History of bilateral carotid endarterectomies (RCEA 1997 and left CEA 1999' as per patient), CKD, HLD, DM, COPD. Race:C SUMMARY: PHYSICAL ASSESSMENT BloodPulsesCarotid Pressure Carotid TemporalBruit Right 132/80 ++0 Left 140/89 ++0 CAROTID ARTERY SCAN RIGHT: There is scattered calcified plaque noted in the common carotid artery. There is intimal thickening with hard plaque noted in the area of the carotid endarterectomy site. There is hard plaque in the proximal internal carotid artery with colorflow disturbance and elevated velocity noted. The external carotid artery is clear. LEFT: There is scattered calcified plaque noted in the common carotid artery. There is calcified plaque noted within the carotid endarterectomy site extending into the external carotid artery. The internal carotid artery is clear. Colorflow is normal. PRELIMINARY FINDINGS 1. Non-stenotic plaque throughout the common carotid artery and carotid endarterectomy site, bilaterally. 2. 50-69% stenosis of the right internal carotid artery. 3. <50% stenosis of the left external carotid artery. PHYSICIAN INTERPRETATION 1.Bilateral carotid artery examination demonstrates non-stenotic plaque in the common carotids and the carotid endarterectomies.The right internal carotid artery has moderate stenosis ( 50-69 % ) Carotid Findings:Thi CuiFlw Antegrade Antegrade Subclavian Triphasic Triphasic MEASUREMENTS: DOPPLER Right CCA Dist CCA Dist PSV43.8 cm/sCCA Dist EDV13.1 cm/s Right CCA Mid CCA Mid PSV 60.3 cm/sCCA Mid EDV 8.68 cm/s Right CCA Prox CCA Prox PSV78.8 cm/sCCA Prox EDV10.1 cm/s Right ECA Prox ECA Prox PSV69.1 cm/sECA Prox EDV 0 cm/ s Right ICA Mid ICA Mid PSV 82.2 cm/Vonnie Mid EDV 25.7 cm/s Right ICA Prox ICA Prox PSV 144 cm/Vonnie Prox EDV36.9 cm/s Right Vertebral Vertebral PSV 36.6 cm/sVertebral EDV 8.64 cm/s Left CCA Dist CCA Dist PSV58.4 cm/sCCA Dist EDV12 cm/ s Left CCA Prox CCA Prox PSV74 cm/sCCA Prox EDV10.2 cm/ s Left ECA Prox ECA Prox PSV85.3 cm/sECA Prox EDV 0 cm/ s Left ICA Dist ICA Dist PSV47.7 cm/Vonnie Dist EDV15.4 cm/s Left ICA Mid ICA Mid PSV 58.1 cm/Vonnie Mid EDV 11.5 cm/s Left ICA Prox ICA Prox PSV74.9 cm/Vonnie Prox EDV18 cm/ s Left Vertebral Vertebral PSV 43.8 cm/sVertebral EDV 9.78 cm/s Right ICA/CCA Ratio ICA/CCA PSV 2.39 Left CCA Mid CCA Mid PSV 52.3 cm/sCCA Mid EDV9 cm/s Right ICA Dist ICA Dist PSV63.3 cm/Vonnie Dist EDV14.1 cm/s Left ICA/CCA Ratio ICA/CCA PSV 1.43 Signed 06/13/2016 02:22 PM Joel Mendoza MD Procedure Note Interface, Radiology Results In - 06/13/2016 2:23 PM CDT Vascular Ultrasound Laboratory Carotid Artery Duplex Report [address] [place] [address] For senior quality manager purposes, the categorization of the degree of the stenosis of this exam is based on criteria described in the IAC carotid stenosis grading white paper( www.intersocietal.org/Vascular) and Sneha Kiser., Aimee Boyer, et al. Carotid artery stenosis: morgan-scale and Doppler US diagnosis--Society of Radiologists in Ultrasound Consensus Conference. Radiology. 2003 Nov; 229(2):340-6. Pat.Name: GILMA MELLO Pat.ID: [id number] St.Date: 06/13/2016 Refer.MD: VIRGINIA ROD MD Exam Time: 8:31:00 AM Study Type:Carotid Height: 66in Age: 4 1935,80Y Sex: FEMALE Sonogrphr: Shelbi Tejada RVT Pat. Stat.:Inpatient Room: [address] Tape Vol: RF, CPT - 4: 526[address] Echo Event ID:[id number] Order ID: [id number] Reason for Study:Worsening shortness of breath. History of bilateral carotid endarterectomies (RCEA 1997 and left CEA 1999' as per patient), CKD, HLD, DM, COPD. Race: C SUMMARY: PHYSICAL ASSESSMENT Blood Pulses Carotid Pressure Carotid Temporal Bruit Right 132/80 + + 0 Left 140/89 + + 0 CAROTID ARTERY SCAN RIGHT: There is scattered calcified plaque noted in the common carotid artery. There is intimal thickening with hard plaque noted in the area of the carotid endarterectomy site. There is hard plaque in the proximal internal carotid artery with colorflow disturbance and elevated velocity noted. The external carotid artery is clear. LEFT: There is scattered calcified plaque noted in the common carotid artery. There is calcified plaque noted within the carotid endarterectomy site extending into the external carotid artery. The internal carotid artery is clear. Colorflow is normal. PRELIMINARY FINDINGS 1. Non-stenotic plaque throughout the common carotid artery and carotid endarterectomy site, bilaterally. 2. 50-69% stenosis of the right internal carotid artery. 3. <50% stenosis of the left external carotid artery. PHYSICIAN INTERPRETATION 1. Bilateral carotid artery examination demonstrates non-stenotic plaque in the common carotids and the carotid endarterectomies. The right internal carotid artery has moderate stenosis ( 50-69 % ) Carotid Findings: Right Left Verteb.Flw Antegrade Antegrade Subclavian Triphasic Triphasic MEASUREMENTS: DOPPLER Right CCA Dist CCA Dist PSV 43.8 cm/s CCA Dist EDV 13.1 cm/s Right CCA Mid CCA Mid PSV 60.3 cm/s CCA Mid EDV 8.68 cm/s Right CCA Prox CCA Prox PSV 78.8 cm/s CCA Prox EDV 10.1 cm/s Right ECA Prox ECA Prox PSV 69.1 cm/s ECA Prox EDV 0 cm/s Right ICA Mid ICA Mid PSV 82.2 cm/s ICA Mid EDV 25.7 cm/s Right ICA Prox ICA Prox PSV 144 cm/s ICA Prox EDV 36.9 cm/s Right Vertebral Vertebral PSV 36.6 cm/s Vertebral EDV 8.64 cm/s Left CCA Dist CCA Dist PSV 58.4 cm/s CCA Dist EDV 12 cm/s Left CCA Prox CCA Prox PSV 74 cm/s CCA Prox EDV 10.2 cm/s Left ECA Prox ECA Prox PSV 85.3 cm/s ECA Prox EDV 0 cm/s Left ICA Dist ICA Dist PSV 47.7 cm/s ICA Dist EDV 15.4 cm/s Left ICA Mid ICA Mid PSV 58.1 cm/s ICA Mid EDV 11.5 cm/s Left ICA Prox ICA Prox PSV 74.9 cm/s ICA Prox EDV 18 cm/s Left Vertebral Vertebral PSV 43.8 cm/s Vertebral EDV 9.78 cm/s Right ICA/CCA Ratio ICA/CCA PSV 2.39 Left CCA Mid CCA Mid PSV 52.3 cm/s CCA Mid EDV 9 cm/s Right ICA Dist ICA Dist PSV 63.3 cm/s ICA Dist EDV 14.1 cm/s Left ICA/CCA Ratio ICA/CCA PSV 1.43 Signed 06/13/2016 02:22 PM Joel Mendoza MD * US Abdomen Complete (06/12/2016 9:06 PM) Specimen Performing Laboratory [address] [address] Narrative EXAM: US ABDOMEN COMPLETE CLINICAL DATA:severe TRliver function COMPARISON: NONE. FINDINGS: PANCREAS:The visualized portions of the pancreas are within normal limits. LIVER:The liver demonstrates slightly fatty echogenicity without focal mass or intrahepatic biliary ductal dilatation. MPV:Doppler evaluation of the portal vein demonstrates normal hepatopedal flow. CBD:0.3 cm within normal limits. GALLBLADDER:The gallbladder has been surgically removed. RIGHT KIDNEY:The right kidney is normal in size and echogenicity. There is no evidence of mass, calculi, or hydronephrosis.The right kidney measures 10.8 cm LEFT KIDNEY:The left kidney is normal in size and echogenicity. There is no evidence of mass, calculi, or hydronephrosis. The left kidney measures8.1 cm. SPLEEN:The spleen is homogeneous and not enlarged measuring9.8 cm AORTA:The visualized upper abdominal aorta demonstrates no evidence of ectasia or aneurysm. IVC:The visualized portions of the inferior vena cava are unremarkable. IMPRESSION: 1.The gallbladder has been previously removed. 2. The liver does not demonstrate any masses. The liver has a slightly fatty appearance. 3. The common bile duct is not dilated. 4. The kidneys do not have any solid renal mass or hydronephrosis. Mild cortical thinning is present. [facility]-[id number] Procedure Note Interface, Radiology Results Incoming - 06/12/2016 11:12 PM CDT EXAM: US ABDOMEN COMPLETE CLINICAL DATA: severe TR liver function COMPARISON: NONE. FINDINGS: PANCREAS: The visualized portions of the pancreas are within normal limits. LIVER: The liver demonstrates slightly fatty echogenicity without focal mass or intrahepatic biliary ductal dilatation. MPV: Doppler evaluation of the portal vein demonstrates normal hepatopedal flow. CBD: 0.3 cm within normal limits. GALLBLADDER: The gallbladder has been surgically removed. RIGHT KIDNEY: The right kidney is normal in size and echogenicity. There is no evidence of mass, calculi, or hydronephrosis. The right kidney measures 10.8 cm LEFT KIDNEY: The left kidney is normal in size and echogenicity. There is no evidence of mass, calculi, or hydronephrosis. The left kidney measures 8.1 cm . SPLEEN: The spleen is homogeneous and not enlarged measuring 9.8 cm AORTA: The visualized upper abdominal aorta demonstrates no evidence of ectasia or aneurysm. IVC: The visualized portions of the inferior vena cava are unremarkable. IMPRESSION: 1. The gallbladder has been previously removed. 2. The liver does not demonstrate any masses. The liver has a slightly fatty appearance. 3. The common bile duct is not dilated. 4. The kidneys do not have any solid renal mass or hydronephrosis. Mild cortical thinning is present. [facility]-[id number] * Echocardiogram complete w contrast and 3D if needed (06/12/2016 11:29 AM) Specimen Performing Laboratory [facility] [id number] [place] [address] Narrative Echocardiography Report [id number]Name:GILMA MELLO.ID:[id number] .Date: 06/12/2016 Refer.MD:VIRGINIA ROD MD Exam Time: 10:42:00 AM Study Type:Routine Echo Height:66inWeight:185lb BSA: 1.94 m2 DOBAge:[age]Y Sex: FEMALEBP: 120/56 Sonogrphr: Jordana Jackman RDCS, RVSPat. Stat.:Inpatient Room:A743A Study Status:Final Echo Event ID:[id number] Order ID:[id number] Reason for Study:Valvular regurg, moderate/severe with no status change -routine (>1yr) History / Clinical:COPD, Coronary Artery Disease, Carotid endarterectomy Procedures:2D Echo, Colorflow Doppler Race:C SUMMARY: LV function is normal. LA volume is severely enlarged. Moderate to severe mitral regurgitation. 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 Cannot exclude rheumatic etiology. Moderate to severe tricuspid regurgitation Estimated PA systolic pressure is at least 40 mmHg, assuming a mean RAP of at least 20 mmHg. FINDINGS: LV: LV size is normal. LV function is normal. Overall wall motionis normal. Estimated EF is 60-64%. RV: RV size is normal. RV function is mild to moderately depressed. LA: LA volume is severely enlarged. RA: RA volume is severely enlarged. AO: Aortic root diameter is normal. KOREY: No pericardial effusion. AV: Mild to moderate thickening and calcification of AV leaflets.A trace of aortic regurgitation. MV: Both leaflets appear restricted. 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 PV: No structural PV abnormalities noted. TV: Dilated tricuspid annulus with poor coaptation. Moderate to severetricuspid regurgitation Other:Estimated PA systolic pressure is at least 40 mmHg, assuming amean RAP of at least 20 mmHg. MEASUREMENTS: 2D Parasternal Long [place] LVOT 1.8 cmLVIDd 5.2 cm Index2.7 cm/m LVIDd5 cmIndex 2.6 cm/m LVIDs3.8 cm LVIDs2.9 cmLV%fs 25.7 % LV%fs 40.8 % IVSd 0.9 cm IVSd 1.2 cmLVPWd 0.9 cm LVPWd0.7 cmLA Ds 6 cm LA Ds6 cm LA Sng Plane LA Area 37.2 cm2(8.8-23.4) LA Vol 141.5 ml Index72.9 ml/m LA LngAx 8.7 cm RA Sng Plane RA Area 38.5 cm2(8.3-19.5) RA Vol 165 ml Index85 ml/m RA LngAx 7.6 cm DOPPLER LVOT Stroke Vol LVOT 1.8 cmLVOT CO 1.8 l/min LVOT TVI 9.3 cmLVOT CI 0.9 l/m/m2 LVOT Tm261 msecHR 75 bpm LVOT SV 23.7 ml MV PISA MV AliasVel 38 cm/sMV pkVel 421.5 cm/s MV PISA rad0.7 cmMV ERO 0.3 cm2 MV Flw 105.5 cc/sMV RgVol 31.3 cc Signed 06/12/2016 04:41 PM Irving Robins M.D. Procedure Note Interface, Radiology Results In - 06/12/2016 4:41 PM CDT Echocardiography Report [id number] [place] [address] Pat.Name: GILMA MELLO.ID: [id number] .Date: 06/12/2016 Refer.MD: VIRGINIA ROD MD Exam Time: 10:42:00 AM Study Type:Routine Echo Height: 66in Weight: 185lb BSA: 1.94 m2 Age: 6 1935,80Y Sex: FEMALE BP: 120/56 Sonogrphr: Jordana Jackman RDCS, RVSPat. Stat.:Inpatient Room: [facility] Study Status:Final Echo Event ID:[id number] Order ID: [id number] Reason for Study:Valvular regurg, moderate/severe with no status change -routine (>1yr) History / Clinical:COPD, Coronary Artery Disease, Carotid endarterectomy Procedures:2D Echo, Colorflow Doppler Race: C SUMMARY: LV function is normal. LA volume is severely enlarged. Moderate to severe mitral regurgitation. 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 Cannot exclude rheumatic etiology. Moderate to severe tricuspid regurgitation Estimated PA systolic pressure is at least 40 mmHg, assuming a mean RAP of at least 20 mmHg. FINDINGS: LV: LV size is normal. LV function is normal. Overall wall motion is normal. Estimated EF is 60-64%. RV: RV size is normal. RV function is mild to moderately depressed. LA: LA volume is severely enlarged. RA: RA volume is severely enlarged. AO: Aortic root diameter is normal. KOREY: No pericardial effusion. AV: Mild to moderate thickening and calcification of AV leaflets. A trace of aortic regurgitation. MV: Both leaflets appear restricted. Moderate to severe mitral regurgitation. 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 Cannot exclude rheumatic etiology. PV: No structural PV abnormalities noted. TV: Dilated tricuspid annulus with poor coaptation. Moderate to severe tricuspid regurgitation Other: Estimated PA systolic pressure is at least 40 mmHg, assuming a mean RAP of at least 20 mmHg. MEASUREMENTS: 2D Parasternal [place] LVOT 1.8 cm LVIDd 5.2 cm Index 2.7 cm/m LVIDd 5 cm Index 2.6 cm/m LVIDs 3.8 cm LVIDs 2.9 cm LV%fs 25.7 % LV%fs 40.8 % IVSd 0.9 cm IVSd 1.2 cm LVPWd 0.9 cm LVPWd 0.7 cm LA Ds 6 cm LA Ds 6 cm LA Sng Plane LA Area 37.2 cm2 (8.8-23.4) LA Vol 141.5 ml Index 72.9 ml/m LA LngAx 8.7 cm RA Sng Plane RA Area 38.5 cm2 (8.3-19.5) RA Vol 165 ml Index 85 ml/m RA LngAx 7.6 cm DOPPLER LVOT Stroke Vol LVOT 1.8 cm LVOT CO 1.8 l/min LVOT TVI 9.3 cm LVOT CI 0.9 l/m/m2 LVOT Tm 261 msec HR 75 bpm LVOT SV 23.7 ml MV PISA MV AliasVel 38 cm/s MV pkVel 421.5 cm/s MV PISA rad 0.7 cm MV ERO 0.3 cm2 MV Flw 105.5 cc/s MV RgVol 31.3 cc Signed 06/12/2016 04:41 PM Irving Robins M.D. * Uric acid level (06/11/2016 4:00 AM) Component Value Ref Range Uric acid 9.2 (H) 2.4 - 5.7 mg/dL Specimen Performing Laboratory Plasma specimen [facility] DEPARTMENT OF PATHOLOGY AND GENOMIC MEDICINE [address] [place] [id number] * Lipid panel (06/11/2016 4:00 AM) Component Value Ref Range Cholesterol 86 <200 mg/dL Triglycerides 91 <150 mg/dL HDL cholesterol 24 (L) >40 mg/dL LDL cholesterol 54Comment: Result obtained by direct LDL <100 mg/dL measurement Lipid panel SeeBelow interpretation Comment: Total Cholesterol (mg/dL) <200 Desirable 200-239 Borderline-high >=240 High Triglycerides (mg/dL) <150 Normal 150-199 Borderline-high 200-499 High >=500 Very high HDL Cholesterol (mg/dL) <40 Low (male) <40 Low (female) LDL Cholesterol (mg/dL) <100 Optimal 100-129 Near or above optimal 130-159 Borderline-high 160-189 High >=190 Very high Risk Catergories that modify LDL goals. Risk Catergories LDL goal (mg/dL) CHD and CHD risk equivalent <100 (10-year risk >20%) Multiple (2+) risk factors <130 (10-year risk=<20%) 0-1 risk factors <160 (<10-year risk) Defining levels of lipids in metabolic syndrome Triglycerides >=150 mg/dL HDL Cholesterol Men <40 mg/dL Women <40 mg/dL Non-HDL cholesterol is a second target for therapy in persons with high triglycerides (>=200 mg/dL) Specimen Performing Laboratory Plasma specimen [facility] DEPARTMENT OF PATHOLOGY AND GENOMIC MEDICINE [address] [place] [id number] * D-dimer (06/10/2016 9:30 AM) Component Value Ref Range D-dimer 0.94 (H) 0.00 - 0.40 ug/mL FEU Comment: Units are ug/ml Fibrinogen Equivalent Unit. When combined with low clinical probability, D-dimer results of less than 0.5 ug/ml FEU have a good negative predictive value in excluding PE or DVT. For D-dimer results greater than 0.5 ug/ml FEU further testing is indicated if PE or DVT is suspected clinically. Elevated D-dimer results have been reported in DVT, PE, and DIC cases and may indicate the presence of a clot. D-dimer results may be elevated due to old age, , inflammatory diseases, trauma, post-operative states, sepsis, and malignancies. Specimen Performing Laboratory Blood [facility] DEPARTMENT OF PATHOLOGY AND GENOMIC MEDICINE [address] [place] [id number] * Digoxin level (06/10/2016 4:20 AM) Component Value Ref Range Digoxin <0.3 (L) 0.8 - 2.0 ng/mL Comment: For valid Digoxin results, at least 6 hours should elapse between time of last dose and collection of blood. Otherwise, result may be false high. Therapeutic Range: 0.8 - 2.0 ng/mL Specimen Performing Laboratory Plasma specimen [facility] DEPARTMENT OF PATHOLOGY AND GENOMIC MEDICINE [address] [place] [id number] * Six minute walk w/ pulse oximetry (06/09/2016 2:24 PM) after 05/12/2016 Insurance Payer Benefit Subscriber ID Type Phone Address Plan / Group MEDICARE MEDICARE xxxxxxxxxx Medicare [employer], [place] PART A AND B BCBS AN[employer] xxxxxxxxxxxx [facility]
[2017-05-13 15:12] LABS: BASOPHILS % 0.1 % (0.0-1.0); HEMATOCRIT 38.8 % (34.2-44.1); HEMOGLOBIN 12.8 g/dL (12.0-16.0); LYMPHOCYTES # (AUTO) 1.2 (1.0-3.2); LYMPHOCYTES % 5.4 % (18.0-39.1); MEAN CORPUSCULAR HEMOGLOBIN 28.3 pg (28-32); MEAN CORPUSCULAR VOLUME 85.8 fL (81-99); MONOCYTES # (AUTO) 1.8 (0.2-0.8); MONOCYTES % 8.1 % (4.4-11.3); NEUTROPHILS # (AUTO) 18.5 (2.1-6.9); NEUTROPHILS % 85.3 % (38.7-80.0); PLATELET COUNT 191 x10e3/uL (140-360); RED BLOOD COUNT 4.52 x10e6/uL (3.6-5.1)
[2017-05-13 15:19] LABS: INR 1.41; PROTHROMBIN TIME 16.2 seconds (11.9-14.5)
[2017-05-13 15:20] LABS: PARTIAL THROMBOPLASTIN TIME 41.4 seconds (23.8-35.5)
[2017-05-13] MEDS ORDERED: MORPHINE SULFATE 2 MG/ML SYR IV STA (15:27)
[2017-05-13 15:29] LABS: ALBUMIN 3.1 g/dL (3.5-5.0); ALBUMIN/GLOBULIN RATIO 0.8 (0.8-2.0); ANION GAP 16.2 mmol/L (8-16); CALCIUM 8.8 mg/dL (8.4-10.2); CREATININE, SERUM 1.56 mg/dL (0.57-1.11); POTASSIUM 4.2 mmol/L (3.5-5.1)
[2017-05-13] MEDS ORDERED: AZITHROMYCIN 500MG/NS 250 ML 250 ML IV STA (15:32)
[2017-05-13 15:36] LABS: CREATINE KINASE MB 0.6 ng/mL (0.00-5.00)
[2017-05-13 15:37] LABS: BILIRUBIN,URINE NEGATIVE (NEGATIVE); CLARITY,URINE HAZY (CLEAR); COLOR,URINE YELLOW (YELLOW); KETONES,URINE NEGATIVE (NEGATIVE); LEUKOCYTE ESTERASE ,URINE 1+ (NEGATIVE); NITRITE,URINE NEGATIVE (NEGATIVE); URINE UROBILINOGEN 0.2 mg/dL (0.2 - 1)
[2017-05-13 15:39] LABS: PROTEIN,URINE DIPSTICK 1+ (NEGATIVE)
[2017-05-13 15:40] LABS: B-TYPE NATRIURETIC PEPTIDE2 2661.5 pg/mL (0-100)
[2017-05-13] MEDS ORDERED: CEFTRIAXONE SOD 1 GM VIAL IM ONE (15:45)
[2017-05-13 15:54] LABS: BACTERIA,URINE MODERATE /HPF; EPITHELIAL CELLS,URINE FEW /LPF; WBC,URINE (MAN) 21-50 /HPF (0-5)
[2017-05-13 15:55] LABS: YEAST,URINE FEW
[2017-05-13 16:03] LABS: LYMPHOCYTES % (MANUAL) 8 % (19-48); MONOCYTES % (MANUAL) 10 % (3.4-9.0); NEUTROPHILS % (MANUAL) 82 % (40-74)
[2017-05-13 16:05] LABS: PLATELET ESTIMATE ADEQUATE
[2017-05-13 16:07] LABS: PLATELET MORPHOLOGY COMMENT FEW LARGE; RBC MORPHOLOGY COMMENT NORMAL
--- NOTE | 2017-05-13 16:07 | Diagnostic Imaging Report ---
EXAMINATION: Chest, CHEST SINGLE (PORTABLE) INDICATION: Chest pain COMPARISON: Portable chest 02/11/2017 FINDINGS: LINES: Right internal jugular tunneled central venous catheter with tip projecting over the expected region of the right atrium. Heart: Normal cardiac silhouette. Vascular: The pulmonary vasculature is within normal limits. Atherosclerotic calcifications of the aortic arch. Mediastinum: No mediastinal, hilar, or axillary mass or lymphadenopathy. Lungs: No parenchymal mass. Left midlung region opacity. Pleura: No pleural effusion. No pneumothorax. Bones: No acute osseous abnormality. Degenerative changes of the thoracic spine. Median sternotomy wires. Soft tissues: Normal. Impression: Left midlung region opacity consistent with pneumonia. Signed by: Dr. Landon Chapman M.D. on 05/13/2017 4:03 PM
[2017-05-13] MEDS ORDERED: WARFARIN SODIU2.5 MG PO (16:54)
[2017-05-13] MEDS ORDERED: ROBAXIN-750750 MG PO (16:54)
[2017-05-13] MEDS ORDERED: MORPHINE SULFATE 2 MG/ML SYR IV ONE (17:30)
[2017-05-13] MEDS ORDERED: VANCOMYCIN 1GM/NS 250 ML 250 ML IV STA (17:52)
--- OUTSIDE RECORDS SUMMARY | 2017-05-13 18:07 | XMS REPORT | Clinical Summary ---
Author Author Shahbaz Scientologist Organization [place] [employer] Address Unknown Phone Unavailable Care Team Providers Care Larry Operator Name Role Phone Natalie Hawk DO PCP [...] atrial fibrillation 06/08/2016 Coronary artery disease involving [place] coronary artery of [place] heart 12/2016 without angina pectoris Overview: Hx [...] 01/04/2017 Anesthesia Critical Care Medicine Ramon Grewal, REVENUE ACCOUNTING MANAGER Event 01/04/2017 Orders Only Procedural Cardiology Vaishali Seymour RN 12/29/2016 [facility] Rojas Rod MD Heart failure due to - Encounter Geno Powers MD valvular disease, acute 01/05/2017 on chronic, diastolic (Primary Dx); Permanent atrial fibrillation 08/03/2016 [facility] Colin Cesar MD Severe mitral ry Visit Yannick Liang MD regurgitation (Primary Dx); Severe tricuspid regurgitation; Coronary artery disease involving [place] coronary artery of [place] heart without angina pectoris; Chronic atrial fibrillation [...] Cardiology Yannick Liang MD Cv mitral clip [43021 (CPT )] 06/14/2016 Orders Only Cardiology Yannick Liang MD Non-rheumatic mitral regurgitation (Primary Dx) 06/13/2016 Procedure Pass Procedural Cardiology 06/13/2016 Surgery Procedural Cardiology Bryant Matt MD Cv right and left heart cath selective angiography lv [17771 (CPT )] 06/09/2016 [facility] Adonis Ramos Severe mitral - Encounter MD Nate regurgitation (Primary 06/21/2016 Virginia Rod MD Dx); Dyspnea, unspecified type; J.B. Gannon's syndrome; Non-rheumatic mitral regurgitation; Severe tricuspid regurgitation; Gastroesophageal reflux disease without esophagitis; CKD (chronic kidney disease), unspecified stage; Chronic atrial fibrillation; Coronary artery disease involving [place] coronary artery of [place] heart without angina pectoris 06/08/2016 [facility] Colin Cesar MD Mitral valve ry Visit insufficiency, unspecified etiology (Primary Dx) 06/08/2016 Office Visit Cardiovascular Milan Kwan MD Severe mitral regurgitation (Primary Dx); Severe tricuspid regurgitation; Chronic atrial fibrillation; Coronary artery disease involving [place] coronary artery of [place] heart without angina pectoris; Type 2 diabetes [...] 06/28/2017 Appointment Procedural Cardiology Yannick Liang MD [address] [facility] [address] [place] [address] [id number] 06/28/2017 [facility] Yannick Liang MD ry Visit [address] [facility] [address] [place] [address] Health Maintenance Due Date Last Done Comments FOOT EXAM 09/10/1943 OPHTHALMOLOGY EXAM 09/10/1943 URINE MICROALBUMIN 09/10/1943 ZOSTER VACCINE 1993 PNEUMOCOCCAL-13 1998 PNEUMOCOCCAL Completed 11/05/2006 POLYSACCHARIDE VACCINE AGE 65 AND OVER INFLUENZA VACCINE Completed 01/03/2017, 01/12/2016, 02/17/2004 Implants Implanted Type Area Agri Business Agent Device Expiration Model / Identifier Date Serial / Lot Kit Mitraclip System (1 Clip) - Cardiovasc ZEPEDA VASCULAR [id number] ular DEVICES / Implanted: Qty: 1 on 06/19/2016 by Implants / Yannick Liang MD Procedures Procedure Name Priority Date/Time Associated Diagnosis Comments ECHOCARDIOGRAM Routine 01/04/2017 Results for this TRANSESOPHAGEAL W DOPPLER 12:43 PM CDT procedure are in the COLORFLOW results section. ECHOCARDIOGRAM 2D Routine 12/29/2016 Results for this COMPLETE W MMODE SPECTRAL 8:55 PM CDT procedure are in the COLOR DOPPLER (49433) results section. ECHOCARDIOGRAM 2D Routine 08/03/2016 Mitral valve disorder Results for this COMPLETE W MMODE SPECTRAL 9:58 AM CDT S/P mitral valve clip procedure are in the COLOR DOPPLER (09007) implantation results section. ECHOCARDIOGRAM 2D Routine 06/20/2016 Results for this COMPLETE W MMODE SPECTRAL 2:51 PM CDT procedure are in the COLOR DOPPLER (72918) results section. ECHOCARDIOGRAM Routine 06/19/2016 Results for [...] MORRIS Performed by: other anesthesia staff Preoxygena liyah with 100% O2: Yes C-spine Precaution s [...] CDT procedure are in the COLOR DOPPLER (61277) results section. SIX MINUTE WALK W/ PULSE Routine 06/09/2016 Mitral valve OXIMETRY 2:24 PM PAPER TUBE GRADER insufficiency, unspecified etiology after 05/12/2016 Results * POC glucose (01/05/2017 4:57 PM) Only the most recent of 74 results within the time period is included. Component Value Ref Range POC glucose 161 (H) 65 - 99 mg/dL Comment: No Action Needed [facility] Notified RN Meter ID: [id number] Business Process Modeler: Jason Cuenca Specimen Performing Laboratory [facility] DEPARTMENT OF PATHOLOGY AND GENOMIC MEDICINE [address] [place] [address] * CBC with platelet and differential (01/05/2017 [...] (promyelocytes, myelocytes, metamyelocytes) Specimen Performing Laboratory Blood [facility] DEPARTMENT OF PATHOLOGY AND GENOMIC MEDICINE [address] [place] [address] * Estimated GFR (01/05/2017 4:00 AM) Only [...] and Americans. Specimen Performing Laboratory Plasma specimen [facility] DEPARTMENT OF PATHOLOGY AND GENOMIC MEDICINE [address] [place] [address] * Basic metabolic panel (01/05/2017 4:00 AM) [...] 10.2 mg/dL Specimen Performing Laboratory Plasma specimen [facility] DEPARTMENT OF PATHOLOGY AND [facility] MEDICINE [address] [place] [address] * Echocardiogram transesophageal (01/04/2017 12:43 PM) Specimen Performing Laboratory [facility] [address] [place] [address] Narrative Transesophageal Echo Report [address] [place] [address] , [place] [address] Pat.Name:GILMA MELLO Pat.ID:[id number] .Date: 01/04/2017 Refer.MD:GENO POWERS MD Exam Time: 8:52:00 AMStudy Type:ROSAMARIA Height:66inWeight:219lb BSA: 2.08 m2 DOBAge:1935,81Y Sex: FEMALEBP: 118/77 HR:84 bpmSonogrphr: Saloni Watson DO Pat. Stat.:Inpatient Room:F8-14 Study Status:Final Echo Event ID:[id number] Order ID:[id number] Reason for Study:Mitral Regurgitation, Tricuspid Regurgitation History / Clinical:COPD, Coronary Artery Disease, Carotid endarterectomy Procedures:Transesophageal Echo with Colorflow Doppler Race: SUMMARY: MV clip at A2-P2. Mild to moderate mitral regurgitation. Severe tricuspid regurgitation FINDINGS: ROSAMARIA:The attending tail puller performed the ROSAMARIA procedure and waspresent for [...] ASA Class: 4 Physician: Oniel Liz MD Dental Aide: Saloni Watson DO Pre TEEBP HR Post ROSAMARIA BP HR 118/77 84 119/58 76 Meds:Viscous xylocaine, Cetacaine spray to oropharynx, Per Anesthesia Complications: None Condition: Stable Comments:Severe TR Signed 01/04/2017 01:52 PM Oniel Liz MD Procedure Note Interface, Radiology Results In - 01/04/2017 1:53 PM CDT Transesophageal Echo Report [address], [place], [place] [address] Pat.Name: GILMA MELLO [facility].ID: [id number] .Date: 01/04/2017 Refer.MD: GENO POWERS MD Exam Time: 8:52:00 AM Study Type:ROSAMARIA Height: 66in Weight: 219lb BSA: 2.08 m2 Age: 6 1935,81Y Sex: FEMALE BP: 118/77 HR: 84 bpm Sonogrphr: Saloni Watson. Stat.:Inpatient Room: [facility] Study Status:Final Echo Event ID:[id number] Order ID: [id number] Reason for Study:Mitral Regurgitation, Tricuspid Regurgitation History / Clinical:COPD, Coronary Artery Disease, Carotid endarterectomy Procedures:Transesophageal Echo with Colorflow Doppler Race: SUMMARY: MV clip at A2-P2. Mild to moderate mitral regurgitation. Severe tricuspid regurgitation FINDINGS: ROSAMARIA: The attending tail puller performed the ROSAMARIA procedure and was present [...] ASA Class: 4 Physician: Oniel Liz MD Dental Aide: Saloni Watson DO Pre ROSAMARIA BP HR [...] - 20.0 ug/mL Specimen Performing Laboratory Serum [facility] DEPARTMENT OF PATHOLOGY AND GENOMIC MEDICINE [address] [place] [address] * XR Chest 1 Vw Portable (01/02/2017 6:08 PM) Only the most recent of 3 results within the time period is included. Specimen Performing Laboratory [address] [address] Narrative Examination:XR CHEST 1 VW PORTABLE Clinical history:"SHORTNESS OF BREATH" Comparison:12/29/2016 IMPRESSION: There are no new alveolar opacities within either lung.There is a tiny left pleural effusion. Tiny right pleural effusion is seen. No pneumothoraces are identified. The cardiomediastinal silhouette is unchanged. The bones of the chest are unchanged. [facility]-[id number] Procedure Note Hm Interface, Radiology Results Incoming [...] The bones of the chest are unchanged. [facility]-[id number] * Arterial blood gas, pulmonary func dept [...] - 16.0 g/dL Specimen Performing Laboratory Blood [facility] DEPARTMENT OF PATHOLOGY AND [facility] MEDICINE [address] [place] [address] * LDH (12/31/2016 8:02 PM) Component Value Ref Range LDH 283 (H) 87 - 225 U/L Specimen Performing Laboratory Plasma specimen [facility] DEPARTMENT OF PATHOLOGY AND [facility] MEDICINE [address] [place] [address] * Osmolality, serum (12/31/2016 8:01 PM) Component Value Ref Range Osmolality 310 (H) 275 - 295 mOsm/kg Specimen Performing Laboratory Blood [facility] DEPARTMENT OF PATHOLOGY AND [facility] MEDICINE [address] [place] [address] * Potassium, urine, random (12/31/2016 6:37 PM) Component Value Ref Range Potassium, urine, random 39.1 mEq/L Specimen Performing Laboratory Urine [facility] DEPARTMENT PATHOLOGY [facility] MEDICINE [address] [place] [address] * Osmolality, urine (12/31/2016 6:37 PM) Only the most recent of 2 results within the time period is included. Component Value Ref Range Osmolality, urine 336 50 - 1,400 mOsm/kg Specimen Performing Laboratory Urine [facility] DEPARTMENT OF PATHOLOGY AND [facility] MEDICINE [address] [place] [address] * ECG ED Preliminary Interpretation - NOT AN ORDER (12/30/2016 10:52 AM) Narrative Rojas Rod MD 12/30/2016 10:52 AM ECG ED Preliminary Interpretation - Not an Order Performed by: ROJAS ROD Authorized by: ROJAS ROD ECG reviewed by ED Physician in the absence of a tail puller: yes Previous ECG: Previous ECG:Unavailable Interpretation: Interpretation: abnormal Rate: ECG rate:80 ECG rate assessment: normal Rhythm: Rhythm: atrial fibrillation QRS: QRS axis:Left (low voltage ) ST segments: ST segments:Normal T waves: T waves: normal * CK-MB (12/30/2016 2:45 AM) Component Value Ref Range CK-MB 2.2 1.0 - 5.3 ng/mL Specimen Performing Laboratory Plasma specimen [facility] DEPARTMENT OF PATHOLOGY [facility] MEDICINE [address] [place] [address] * Troponin (12/30/2016 2:45 AM) Only the [...] myocardial injury. Specimen Performing Laboratory Plasma specimen [facility] [place] [address] * Thyroid stimulating hormone (12/30/2016 2:45 AM) Only the most recent of 2 results within the time period is included. Component Value Ref Range TSH 1.62 0.27 - 4.20 uIU/mL Specimen Performing Laboratory Plasma specimen [facility] [place] [address] * T4, free (12/30/2016 2:45 AM) Only the most recent of 2 results within the time period is included. Component Value Ref Range T4, free 1.3 0.9 - 1.7 ng/dL Specimen Performing Laboratory Plasma specimen [facility] [place] [address] * Phosphorus level (12/30/2016 2:45 AM) Only the most recent of 3 results within the time period is included. Component Value Ref Range Phosphorus 4.2 2.4 - 4.5 mg/dL Specimen Performing Laboratory Plasma specimen [facility] [place] [address] * Magnesium level (12/30/2016 2:45 AM) Only the most recent of 7 results within the time period is included. Component Value Ref Range Magnesium 2.1 1.6 - 2.4 mg/dL Specimen Performing Laboratory Plasma specimen [facility] [place] [address] * Creatine kinase, total (CPK) (12/30/2016 2:45 AM) Only the most recent of 3 results within the time period is included. Component Value Ref Range Creatine kinase 17 (L) 26 - 192 U/L Specimen Performing Laboratory Plasma specimen [facility] [place] [address] * Hemoglobin A1c (12/30/2016 2:43 AM) Only [...] type 1 diabetes. Specimen Performing Laboratory Blood [facility] DEPARTMENT OF PATHOLOGY AND GENOMIC MEDICINE [address] [place] [address] * Potassium level (12/29/2016 10:04 PM) Component Value Ref Range Potassium 5.5 (H) 3.5 - 5.0 mEq/L Specimen Performing Laboratory Plasma specimen [facility] DEPARTMENT OF PATHOLOGY AND [facility] MEDICINE [address] [place] [address] * PV duplex venous lower extremity (12/29/2016 9:30 PM) Only the most recent of 2 results within the time period is included. Specimen Performing Laboratory [facility] [address] [place] [address] Narrative Vascular Ultrasound Laboratory Lower Extremity Venous Report [address] [place] [address] Pat.Name:GILMA MELLO Pat.ID:[id number] .Date: 12/29/2016 Refer.MD:GENO POWERS MD Exam Time: 8:35:00 PMStudy Type:LE Venous Height:66inDOBAge:4,81Y Sex: FEMALESonogrphr: Aime Steve Amos Pat. Stat.:Inpatient Room:[place] [address] TapeVol: UD, CPT - 4: 20884 Echo Event ID:[id number] Order ID:[id number] Reason for Study:HTN, HLD, CKD, worsening SOB [...] Ultrasound Laboratory Lower Extremity Venous Report [address] [place] [address] Pat.Name: GILMA MELLO [place].ID: [id number] .Date: 12/29/2016 Refer.MD: GENO POWERS MD Exam Time: 8:35:00 PM Study Type:LE Venous Height: 66in Age: 6 1935,81Y Sex: FEMALE Sonogrphr: Aime Steve RVT Pat. Stat.:Inpatient Room: L3SMO-[id number] Tape Vol: VB, CPT - 4: 75946 Echo Event ID:[id number] Order ID: [id number] Reason for Study:HTN, HLD, CKD, worsening SOB [...] 8:55 PM) Specimen Performing Laboratory [facility] [address] [place] [address] Narrative Echocardiography Report [address] [place] [address] Pat.Name:GILMA MELLO Pat.ID:[id number] .Date: 12/29/2016 Refer.MD:GENO POWERS MD Exam Time: 8:34:00 PMStudy Type:Routine Echo Height:65inWeight:200lb BSA: 1.98 m2 DOBAge:[age]Y Sex: FEMALEBP: 124/64 HR:82 bpmSonogrphr: FAUSTINO Lott, ARMANDO Pat. Stat.:Inpatient Room:D9MHU-[id number] CPT - 4: 42794, 47744Stgjb Status:Final Echo Event ID:[id number] Order ID:[id number] Reason for Study:SOB, hx of Mitral clip. [...] RAPof 25 mmHg. MEASUREMENTS: 2D Parasternal [place] Ao An2 cmLVPWd 1.2 cm LVOT 1.8 [...] 12/30/2016 2:42 PM CDT Echocardiography Report [address] [place] [address] Pat.Name: GILMA MELLO Pat.ID: [id number] .Date: 12/29/2016 Refer.MD: GENO POWERS MD Exam Time: 8:34:00 PM Study Type:Routine Echo Height: 65in Weight: 200lb BSA: 1.98 m2 Age: 4 1935,81Y Sex: FEMALE BP: 124/64 HR: 82 bpm Sonogrphr: FAUSTINO Lott RVS Pat. Stat.:Inpatient Room: [place] [address] CPT - 4: 18811, 10592 Study Status:Final Echo Event ID:[id number] Order ID: [id number] Reason for Study:SOB, hx of Mitral clip. [...] of 25 mmHg. MEASUREMENTS: 2D Parasternal [place] Ao An 2 cm LVPWd 1.2 cm [...] 2.2 mmol/L venous Specimen Performing Laboratory Blood [facility] DEPARTMENT OF PATHOLOGY AND GENOMIC MEDICINE [address] [place] [address] * Sputum culture (12/29/2016 6:45 PM) Component Value Ref Range Sputum culture isolate Normal oral andrew isolated. Comment: Specimen Information Specimen Source: Sputum Specimen Site: Expectorated Specimen Performing Laboratory Sputum - Expectorated [facility] DEPARTMENT OF PATHOLOGY AND GENOMIC MEDICINE [address] [place] [address] * Gram stain (12/29/2016 6:45 PM) Only the most recent of 3 results within the time period is included. Component Value Ref Range Gram stain isolate Few WBC's Rare Gram negative rods Comment: Specimen Information Specimen Source: Sputum Specimen Site: Expectorated Specimen Performing Laboratory Sputum - Expectorated [facility] [place] [address] * Lactic acid level (12/29/2016 4:07 PM) Only the most recent of 2 results within the time period is included. Component Value Ref Range Lactic acid 4.0 (HH) 0.5 - 2.2 mmol/L Specimen Performing Laboratory Plasma specimen [facility] [place] [address] * Respiratory pathogen panel (12/29/2016 3:50 PM) [...] Performing Laboratory Nares - Right and left [facility] DEPARTMENT OF PATHOLOGY AND GENOMIC MEDICINE lobes [address] [place] [address] * Blood culture, aerobic & anaerobic (12/29/2016 2:13 PM) Only the most recent of 3 results within the time period is included. Component Value Ref Range Blood culture isolate No growth after 5 days of incubation. Comment: Specimen Information Specimen Source: Blood Specimen Site: Antecubital, right Specimen Performing Laboratory Blood - Antecubital, [facility] DEPARTMENT OF PATHOLOGY [place] [address] * Urinalysis screen and microscopy, with reflex [...] >20 (A) /LPF Specimen Performing Laboratory Urine [facility] DEPARTMENT OF PATHOLOGY AND GENOMIC MEDICINE [address] [place] [address] * Urine culture (12/29/2016 2:00 PM) Only the most recent of 3 results within the time period is included. Component Value Ref Range Urine culture isolate No growth after 2 days. Comment: Specimen Information Specimen Source: Urine Specimen Site: Clean catch Specimen Performing Laboratory Urine [facility] DEPARTMENT OF PATHOLOGY AND GENOMIC MEDICINE [address] [place] [address] * Prothrombin time with INR (12/29/2016 11:40 [...] vein thrombosis/pulmonary embolism. Specimen Performing Laboratory Blood [facility] DEPARTMENT OF PATHOLOGY AND GENOMIC MEDICINE [address] [place] [address] * B natriuretic peptide (12/29/2016 11:40 AM) Only the most recent of 4 results within the time period is included. Component Value Ref Range BNP 1,415 (H) 0 - 100 pg/mL Specimen Performing Laboratory Blood [facility] DEPARTMENT OF PATHOLOGY AND GENOMIC MEDICINE [address] [place] [address] * Comprehensive metabolic panel (12/29/2016 11:40 AM) [...] 1.2 mg/dL Specimen Performing Laboratory Plasma specimen [facility] DEPARTMENT OF PATHOLOGY AND GENOMIC MEDICINE [address] [place] [address] * ECG 12 lead (12/29/2016 11:22 AM) [...] evident in Lateral leads- Specimen Performing Laboratory [facility] MUSE [address] [place] [address] * Ancilliary Performed Echocardiogram complete w contrast and 3D if needed (07/2016 9:58 AM) Specimen Performing Laboratory [facility] [address] [place] [id number] Narrative Echocardiography Report [address] [facility] [address] [place] [address] Pat.Name:GILMA MELLO Pat.ID:[id number] St.Date: 08/03/2016Refer.MD:COLIN CESAR MD Exam Time: 9:35:00 AMStudy Type:Routine Echo Height:66inWeight:190lb BSA: 1.96 m2 DOBAge:1935,80Y Sex: FEMALEBP: 135/68 Sonogrphr: FAUSTINO Rousseau Pat. Stat.:Outpatient Study Status:Revised Echo Event ID:[id number] Order ID:[id number] Reason for Study:Mitral valve clip History / [...] RAPof 10 mmHg. MEASUREMENTS: 2D Parasternal [place] LVOT 2.1 cmLA Ds 6.3 cm LVIDd5 [...] 08/04/2016 3:39 PM CDT Echocardiography Report [address] [place] [address] Pat.Name: GILMA MELLO Pat.ID: [id number] .Date: 08/03/2016 Refer.MD: COLIN CESAR MD Exam Time: 9:35:00 AM Study Type:Routine Echo Height: 66in Weight: 190lb BSA: 1.96 m2 Age: 4 1935,80Y Sex: FEMALE BP: 135/68 Sonogrphr: FAUSTINO Rousseau Pat. Stat.:Outpatient Study Status:Revised Echo Event ID:[id number] Order ID: [id number] Reason for Study:Mitral valve clip History / [...] of 10 mmHg. MEASUREMENTS: 2D Parasternal [place] LVOT 2.1 cm LA Ds 6.3 cm [...] PM) Specimen Performing Laboratory [facility] [address] [place] [address] Narrative Echocardiography Report [address] [place] [address] Pat.Name:GILMA MELLO.ID:[id number] .Date: 06/20/2016 Refer.MD:LAKISHA ROD MD Exam Time: 2:02:00 PMStudy Type:Routine Echo Height:167.64cmWeight:87kg BSA: 1.96 m2 DOBAge:1935,80Y Sex: FEMALEBP: 140/64 Sonogrphr: Jordana Jackman RDCS, RVSPat. Stat.:Inpatient Room:[id number] Status:Final Echo Event ID:[id number] Order ID:[id number] Reason for Study:S/P MITRAL CLIP History / [...] of 20-25 mmHg. MEASUREMENTS: 2D Parasternal [place] LVOT 2.1 cmIVSd 0.8 cm LVIDd4.6 cmIndex [...] 06/20/2016 3:39 PM CDT Echocardiography Report [address] [place] [address] Pat.Name: GILMA MELLO Pat.ID: [id number] .Date: 06/20/2016 Refer.MD: LAKISHA ROD MD Exam Time: 2:02:00 PM Study Type:Routine Echo Height: 167.64cm Weight: 87kg BSA: 1.96 m2 Age: 6 1935,80Y Sex: FEMALE BP: 140/64 Sonogrphr: Jordana Jackman RDCS, RVSPat. Stat.:Inpatient Room: [id number] Study Status:Final Echo Event ID:[id number] Order ID: [id number] Reason for Study:S/P MITRAL CLIP History / [...] of 20-25 mmHg. MEASUREMENTS: 2D Parasternal [place] LVOT 2.1 cm IVSd 0.8 cm LVIDd [...] 08:10,-QRS duration has decreased- Specimen Performing Laboratory [facility] MUSE [address] [place] [address] * Echocardiogram transesophageal (06/19/2016 2:43 PM) Specimen Performing Laboratory [facility] [address] [place] [address] Narrative Transesophageal Echo Report [facility] [address], [place] [address] Pat.Name:GILMA MELLO Pat.ID:[id number] .Date: 06/19/2016 Refer.MD:COLIN CESAR MD Exam Time: 2:45:00 PMStudy Type:ROSAMARIA Height:66inWeight:192lb BSA: 1.97 m2 DOBAge:1935,80Y Sex: FEMALEBP: 125/80 HR:76 bpmSonogrphr: Luana Pat. Stat.:Inpatient CPT - 4: 93971 Study Status:Final Echo Event ID:[id number] Order ID:[id number] Reason for Study:MITRAL CLIP History / Clinical:COPD, [...] to R shunt noted. FINDINGS: ROSAMARIA:The attending tail puller performed the ROSAMARIA procedure and waspresent for [...] CDT Transesophageal Echo Report [address], [place], [place] [address] Pat.Name: GILMA MELLO Pat.ID: [id number] .Date: 06/19/2016 Refer.MD: COLIN CESAR MD Exam Time: 2:45:00 PM Study Type:ROSAMARIA Height: 66in Weight: 192lb BSA: 1.97 m2 Age: 4 1935,80Y Sex: FEMALE BP: 125/80 HR: 76 bpm Sonogrphr: Luana Hough. Stat.:Inpatient CPT - 4: 30630 Study Status:Final Echo Event ID:[id number] Order ID: [id number] Reason for Study:MITRAL CLIP History / Clinical:COPD, [...] R shunt noted. FINDINGS: ROSAMARIA: The attending tail puller performed the ROSAMARIA procedure and was present [...] 10:52 AM Colin Cesar M.D. * Cv worm farm laborer procedure (06/19/2016 1:27 PM) Specimen Performing Laboratory [facility] [address] [place] [address] Narrative 80 yo woman with severe MR, [...] - 5.0 mEq/L Specimen Performing Laboratory Blood [facility] DEPARTMENT OF PATHOLOGY AND [employer] MEDICINE [address] [place] [address] * Ionized calcium, arterial (06/19/2016 12:35 PM) Only the most recent of 2 results within the time period is included. Component Value Ref Range Ionized calcium, arterial 1.15 1.11 - 1.32 mmol/L Specimen Performing Laboratory Blood [facility] DEPARTMENT OF PATHOLOGY AND [facility] MEDICINE [address] [place] [address] * Sodium level, syringe (06/19/2016 11:12 AM) Component Value Ref Range Sodium, syringe 133 (L) 135 - 148 mEq/L Specimen Performing Laboratory Blood [facility] DEPARTMENT OF PATHOLOGY [address] [address] * Hemoglobin, syringe (06/19/2016 11:12 AM) Component Value Ref Range Hemoglobin, syringe 12.6 12.0 - 16.0 g/dL Specimen Performing Laboratory Blood [address] [address] * Glucose level, syringe (06/19/2016 11:12 AM) Component Value Ref Range Glucose, syringe 134 (H) 65 - 99 mg/dL Specimen Performing Laboratory Blood [facility] PATHOLOGY [address] [address] * Arterial blood gas, corrected (06/19/2016 11:12 [...] - 2 mEq/L Specimen Performing Laboratory Blood [facility] [address] [address] * Partial thromboplastin time, activated (06/19/2016 3:30 AM) Only the most recent of 2 results within the time period is included. Component Value Ref Range PTT 37.1 (H) 23.0 - 36.0 sec Comment: PTT therapeutic range for unfractionated heparin is 61.0-112.0 seconds which corresponds to Anti-Xa 0.3-0.7 U/ml. Specimen Performing Laboratory Blood [facility] [address] [address] * Type and screen (06/18/2016 1:41 PM) Component Value Ref Range ABO grouping O Rh type POS Antibody screen (gel) NEG Specimen Performing Laboratory [facility] [address] [address] * XR Chest 2 Vw (06/18/2016 10:16 AM) Only the most recent of 3 results within the time period is included. Specimen [place] [address] Narrative XR CHEST 2 VW CLINICAL INDICATION:SHORTNESS [...] participate in the care of your patient. [facility]-[id number] Procedure Note Interface, Radiology Results Incoming - [...] participate in the care of your patient. [facility]-[id number] * Cv worm farm laborer procedure (06/13/2016 5:38 PM) Specimen Performing Laboratory [facility] [address] [place] [address] Narrative Right heart filling pressure is moderately [...] 9:00 AM) Specimen Performing Laboratory [facility] [address] [place] [address] Narrative Vascular Ultrasound Laboratory Carotid Artery Duplex Report [address] [address], [place] [address] For quality assurance technician purposes, the categorization of the degree of the stenosis of this exam is based on criteria described in the IAC carotid stenosis grading white paper( www.intersocietal.org/Vascular) and Sneha Kiser., Rudi Boyer., et al. Carotid artery stenosis: morgan-scale and Doppler US diagnosis--Society of Radiologists in Ultrasound Consensus Conference. Radiology. 2003 Nov; 229(2):340-6. Pat.Name:GILMA MELLO Pat.ID:[id number] .Date: 06/13/2016 Refer.MD:VIRGINIA ROD MD Exam Time: 8:31:00 AMStudy Type:Carotid Height:66inDOBAge:1935,80Y Sex: FEMALESonogrphr: Shelbi Tejada RVT Pat. Stat.:Inpatient Room:[address] TapeVol: RF, CPT - 4: [address]265 Echo Event ID:[id number] Order ID:[id number] Reason for Study:Worsening shortness of breath. History [...] Vascular Ultrasound Laboratory Carotid Artery Duplex Report [address] [place] [address] For quality assurance technician purposes, the categorization of the degree of the stenosis of this exam is based on criteria described in the IAC carotid stenosis grading white paper( www.intersocietal.org/Vascular) and Sneha Kiser., Aimee Boyer, et al. Carotid artery stenosis: morgan-scale and Doppler US diagnosis--Society of Radiologists in Ultrasound Consensus Conference. Radiology. 2003 Nov; 229(2):340-6. Pat.Name: GILMA MELLO Pat.ID: [id number] St.Date: 06/13/2016 Refer.MD: VIRGINIA ROD MD Exam Time: 8:31:00 AM Study Type:Carotid Height: 66in Age: 4 1935,80Y Sex: FEMALE Sonogrphr: Shelbi Tejada RVT Pat. Stat.:Inpatient Room: [address] Tape Vol: RF, CPT - 4: 13515 Echo Event ID:[id number] Order ID: [id number] Reason for Study:Worsening shortness of breath. History [...] Complete (06/12/2016 9:06 PM) Specimen Performing Laboratory [address] [address] Narrative EXAM: US ABDOMEN COMPLETE CLINICAL DATA:severe [...] or hydronephrosis. Mild cortical thinning is present. [facility]-[id number] Procedure Note Interface, Radiology Results Incoming - [...] or hydronephrosis. Mild cortical thinning is present. [facility]-[id number] * Echocardiogram complete w contrast and 3D if needed (06/12/2016 11:29 AM) Specimen Performing Laboratory [facility] [address] [place] [address] Narrative Echocardiography Report [address]Name:GILMA MELLO.ID:[id number] .Date: 06/12/2016 Refer.MD:VIRGINIA ROD MD Exam Time: 10:42:00 AM Study Type:Routine Echo Height:66inWeight:185lb BSA: 1.94 m2 DOBAge:[age]Y Sex: FEMALEBP: 120/56 Sonogrphr: Jordana Jackman RDCS, RVSPat. Stat.:Inpatient Room:A743A Study Status:Final Echo Event ID:[id number] Order ID:[id number] Reason for Study:Valvular regurg, moderate/severe with no [...] least 20 mmHg. MEASUREMENTS: 2D Parasternal [place] LVOT 1.8 cmLVIDd 5.2 cm Index2.7 cm/m [...] 06/12/2016 4:41 PM CDT Echocardiography Report [address] [place] [address] Pat.Name: GILMA MELLO.ID: [id number] .Date: 06/12/2016 Refer.MD: VIRGINIA ROD MD Exam Time: 10:42:00 AM Study Type:Routine Echo Height: 66in Weight: 185lb BSA: 1.94 m2 Age: 4 1935,80Y Sex: FEMALE BP: 120/56 Sonogrphr: Jordana Jackman RDCS, RVSPat. Stat.:Inpatient Room: [facility] Study Status:Final Echo Event ID:[id number] Order ID: [id number] Reason for Study:Valvular regurg, moderate/severe with no [...] least 20 mmHg. MEASUREMENTS: 2D Parasternal [place] LVOT 1.8 cm LVIDd 5.2 cm Index [...] 5.7 mg/dL Specimen Performing Laboratory Plasma specimen [facility] DEPARTMENT OF PATHOLOGY AND GENOMIC MEDICINE [address] [place] [id number] * Lipid panel (06/11/2016 4:00 AM) Component [...] (>=200 mg/dL) Specimen Performing Laboratory Plasma specimen [facility] DEPARTMENT OF PATHOLOGY AND GENOMIC MEDICINE [address] [place] [address] * D-dimer (06/10/2016 9:30 AM) Component Value [...] sepsis, and malignancies. Specimen Performing Laboratory Blood [facility] DEPARTMENT OF PATHOLOGY AND GENOMIC MEDICINE [address] [place] [address] * Digoxin level (06/10/2016 4:20 AM) Component Value Ref Range Digoxin <0.3 (L) 0.8 - 2.0 ng/mL Comment: For valid Digoxin results, at least 6 hours should elapse between time of last dose and collection of blood. Otherwise, result may be false high. Therapeutic Range: 0.8 - 2.0 ng/mL Specimen Performing Laboratory Plasma specimen [facility] DEPARTMENT OF PATHOLOGY AND GENOMIC MEDICINE [address] [place] [address] * Six minute walk w/ pulse oximetry (06/09/2016 2:24 PM) after 05/12/2016 Insurance Payer Benefit Subscriber ID Type Phone Address Plan / Group MEDICARE MEDICARE xxxxxxxxxx [place] PART A AND B BCBS ANTHEM xxxxxxxxxxxx [facility]
--- NOTE | 2017-05-13 20:27 | Diagnostic Imaging Report ---
EXAM: CT Abdomen and Pelvis WITHOUT contrast INDICATION: Flank pain, renal stone COMPARISON: Chest x-ray on 05/13/2017 TECHNIQUE: Abdomen and pelvis were scanned utilizing a multidetector helical scanner from the lung base to the pubic symphysis without administration of IV contrast. Absence of intravenous contrast decreases sensitivity for detection of focal lesions and vascular pathology. Coronal and sagittal reformations were obtained. Stone protocol is performed. IV CONTRAST: None. ORAL CONTRAST: Water RADIATION DOSE: Total DLP: 456.39 mGy*cm Estimated effective dose: (DLP x 0.015 x size factor) mSv COMPLICATIONS: None FINDINGS: LINES and TUBES: Partially visualized right atrial dialysis catheter. LOWER THORAX: Multifocal airspace disease involving the right needle, and left lower lobe compatible with pneumonia. Small right pleural effusion is present. Moderate cardiomegaly HEPATOBILIARY: No focal hepatic lesions. No biliary ductal dilation. GALLBLADDER: No radio-opaque stones or sludge. No wall thickening. SPLEEN: No splenomegaly. PANCREAS: No focal masses or ductal dilatation. ADRENALS: No adrenal nodules KIDNEYS/URETERS: The kidneys are atrophic with extensive cortical thinning No hydronephrosis. No cystic or solid mass lesions. No stones. GI TRACT: No abnormal distention, wall thickening, or evidence of bowel obstruction. There are diverticula within the colon without evidence of diverticulitis. Appendix is not clearly identified. There is however no fat stranding or adenopathy in the right lower quadrant to suggest appendicitis. PELVIC ORGANS/BLADDER: Unremarkable. LYMPH NODES: No lymphadenopathy. VESSELS: There is severe atherosclerotic disease in the aorta and major arterial branches. Evaluation of the vascular structures are limited due to lack of IV contrast PERITONEUM / RETROPERITONEUM: No free air or fluid. BONES: There are degenerative changes in the lumbar spine. Total right hip replacement noted SOFT TISSUES: There is mild diffuse anarsarca. IMPRESSION: 1. Multifocal pneumonia involving the right middle lobe and left lower lobe with small right pleural effusion. 2. Moderate cardiomegaly. 3. Extensive atherosclerotic disease of the thoracoabdominal aorta and branches including coronary arteries. 4. Diverticulosis of the sigmoid colon without diverticulitis. Signed by: Dr. Kristopher Denney M.D. on 05/13/2017 8:24 PM
[2017-05-13] MEDS: MORPHINE SULFATE 2 MG/ML SYR IV PRN (21:19)
[2017-05-13] MEDS ORDERED: DEXTROSE 50% SYRINGE 50 ML IV PRN (22:00)
[2017-05-13 22:30] VITALS: BP 110/76
[2017-05-13 23:19] VITALS: BP 110/76
[2017-05-14] VITALS (8 sets, daily range): BP systolic 101–132; BP diastolic 60–77
[2017-05-14] MEDS: MORPHINE SULFATE 2 MG/ML SYR IV PRN ×4 (01:55→19:57)
[2017-05-14 03:13] LABS: CREATINE KINASE MB 0.6 ng/mL (0.00-5.00)
--- NOTE | 2017-05-14 07:02 | Diagnostic Imaging Report ---
EXAMINATION: CHEST SINGLE (PORTABLE) INDICATION: Pneumonia. COMPARISON: 05/13/2017 FINDINGS: TUBES and LINES: Unchanged right IJ dialysis catheter. LUNGS: Lungs are not well inflated. Persistent left midlung airspace opacity compatible with pneumonia. Right lung base airspace disease. Developing interlobular septae thickening bilaterally. PLEURA: No pleural effusion or pneumothorax. HEART AND MEDIASTINUM: Cardiac size is severely enlarged. Patient is status post midline sternotomy, intact BONES AND SOFT TISSUES: No acute osseous lesion. Soft tissues are unremarkable. UPPER ABDOMEN: No free air under the diaphragm. IMPRESSION: 1. Findings are compatible with developing cardiogenic edema. 2. Left midlung airspace opacity in keeping with pneumonia. 3. New right lung base airspace disease may represent second focus of pneumonia. Signed by: Dr. Kristopher Denney M.D. on 05/14/2017 6:58 AM
[2017-05-14] MEDS: INSULIN REGULAR, HUMAN 100 UNIT/1 ML 3ML VIAL SQ SCH ×4 (07:30→20:31)
[2017-05-14 07:47] LABS: BASOPHILS # (AUTO) 0.1 (0.0-0.1); BASOPHILS % 0.2 % (0.0-1.0); EOSINOPHILS % 0.1 % (0.0-6.0); HEMATOCRIT 39.3 % (34.2-44.1); HEMOGLOBIN 12.5 g/dL (12.0-16.0); LYMPHOCYTES # (AUTO) 1.8 (1.0-3.2); LYMPHOCYTES % 7.3 % (18.0-39.1); MEAN CORPUSCULAR HEMOGLOBIN 28.2 pg (28-32); MEAN CORPUSCULAR HGB CONC 31.8 g/dL (31-35); MEAN CORPUSCULAR VOLUME 88.7 fL (81-99); MONOCYTES # (AUTO) 1.9 (0.2-0.8); MONOCYTES % 7.6 % (4.4-11.3); NEUTROPHILS # (AUTO) 20.8 (2.1-6.9); NEUTROPHILS % 83.8 % (38.7-80.0); PLATELET COUNT 201 x10e3/uL (140-360); RED BLOOD COUNT 4.43 x10e6/uL (3.6-5.1); RED CELL DISTRIBUTION WIDTH 21.3 % (11.7-14.4)
[2017-05-14 08:06] LABS: CREATINE KINASE MB 0.6 ng/mL (0.00-5.00)
[2017-05-14 08:28] LABS: ALBUMIN 2.9 g/dL (3.5-5.0); ALBUMIN/GLOBULIN RATIO 0.7 (0.8-2.0); CALCIUM 8.9 mg/dL (8.4-10.2); CREATININE, SERUM 1.82 mg/dL (0.57-1.11)
[2017-05-14 11:32] LABS: ANISOCYTOSIS SLIGHT; BAND NEUTROPHILS % (MANUAL) 2 %; LYMPHOCYTES % (MANUAL) 8 % (19-48); MONOCYTES % (MANUAL) 9 % (3.4-9.0); NEUTROPHILS % (MANUAL) 80 % (40-74)
[2017-05-14 11:33] LABS: PLATELET ESTIMATE ADEQUATE; PLATELET MORPHOLOGY COMMENT NORMAL
[2017-05-14] MEDS: CEFEPIME HCL 1 GM VIAL IV SCH (11:59)
[2017-05-14] MEDS ORDERED: SODIUM CHLORIDE 0.9% 1000ML 2,000 ML ONE (13:55)
--- NOTE | 2017-05-14 14:17 | Consultation ---
DATE OF CONSULTATION: May 14, 2017 RENAL CONSULT HISTORY OF PRESENT ILLNESS: This is an 81-year-old female with end-stage renal disease on hemodialysis Sunday/Sunday/Sunday, who was admitted with back pain and rib pain. The patient missed dialysis on Sunday, started having coughing and shortness of breath. PAST MEDICAL HISTORY: Includes 1. ESRD on hemodialysis. 2. Congestive heart failure. 3. Type 2 discharge medications. 4. Hypertension. 5. Coronary artery disease. 6. RI. 7. Hyperlipidemia. 8. Thyroid disease. PAST SURGICAL HISTORY: Includes 1. Coronary artery bypass. 2. Cholecystectomy. 3. Hysterectomy. ALLERGIES: LOSARTAN. MEDICATIONS: Please see list. Currently on azithromycin, vancomycin and cefepime. REVIEW OF SYSTEMS: Positive cough, positive shortness of breath. No wheezes, no blood in the stool, no blood in the urine, no enlarged lymph node. Basically, otherwise 14-system is negative. PHYSICAL EXAMINATION GENERAL: Alert, following commands. HEENT: Pupils equal, reactive to light and accommodation. NECK: No JVD, no bruit. LUNGS: Rales and rhonchi. No wheezes. HEART: Regular rate and rhythm. No S3, no S4. ABDOMEN: Nontender, nondistended. No hepatosplenomegaly. EXTREMITIES: No clubbing, no cyanosis, no edema. NEUROLOGIC: Cranial nerves 2-12 grossly intact. Sensation intact. Motor intact. VITAL SIGNS: Blood pressure 118/77. LABS: Sodium 124, potassium 5, chloride 90. Hemoglobin 12.5, white count 24. ASSESSMENT AND PLAN 1. End-stage renal disease on hemodialysis. The patient will be dialyzed today. 2. Influenza A positive. The patient will be treated today with pneumonia and flu. The patient has influenza and pneumonia with hypoxemia, started on multiple antibiotics. 3. Hypertension. Currently is stable. No need for medications. 4. Coronary artery disease. No chest pain at this time. 5. Anemia of chronic disease. Currently is stable. 6. Urinalysis, white count present with moderate bacteria, indicating urinary tract infection. Currently on cefepime. So, basically the patient is being treated with influenza A vac, pneumonia and UTI with adequate antibiotics, and she is scheduled for dialysis Sunday/Sunday/Sunday. Job#: [id number] EV
[2017-05-14] MEDS: OSELTAMIVIR PHOSPHATE 75 MG CAP PO SCH (17:51)
--- NOTE | 2017-05-14 17:53 | Consultation ---
DATE OF CONSULTATION: May 14, 2017 REASON FOR CONSULTATION: 1. Pneumonia. 2. Urinary tract infection. 3. Right leg cellulitis. HISTORY OF PRESENT ILLNESS: This is an 81-year-old white female who was very pleasant with a history of end-stage renal disease on hemodialysis Sunday, Sunday and Sunday, congestive heart failure, type 2 diabetes mellitus, hypertension, coronary artery disease, myocardial infarction, hypothyroidism. She comes in with one week history of not feeling well. It started with left-sided pain in her abdomen. She had some dry cough that got progressively worse. The patient just became short of breath. She came to the emergency room. On admission, she was evaluated. Her influenza A came back positive. She was admitted with pneumonia and UTI and infectious disease was consulted. Patient continued on hemodialysis laying in bed comfortably. PAST MEDICAL HISTORY: Of end-stage renal disease on dialysis, congestive heart failure, diabetes mellitus type 2, hypertension, obesity, coronary artery disease, myocardial infarction, hyperlipidemia, hypothyroidism. PAST SURGICAL HISTORY: CABG, cholecystectomy and hysterectomy. ALLERGIES: LOSARTAN. SOCIAL HISTORY: Does not smoke. No drug abuse or alcohol abuse. FAMILY HISTORY: Hypertension and diabetes. REVIEW OF SYSTEMS: GENERAL: She is not feeling well. HEENT: Is no headache, visual changes or hearing changes. GI: There is no nausea, no vomiting and no diarrhea. CARDIAC: There is no arrhythmia. There is no pain. NEUROLOGIC: No seizure activity or local weakness. SKIN: There is no rash. JOINTS: There is no acute onset of erythema or redness and swelling. Besides the dry cough mentioned above, not feeling well and the pain in the left side, she denies anything else. LABORATORY DATA: Reviewed. Her urine culture is gram negative. White count is 24.8. Hemoglobin 12, hematocrit 39, sodium 124, potassium 5, creatinine 1.82. Her influenza A was positive. Her blood cultures are still pending. Chest x-ray which was done showed cardiogenic edema, left midline opacity consistent with pneumonia. IMPRESSION: 1. Sepsis on admission secondary to community-acquired pneumonia. 2. Urinary tract infection. 3. Influenza A. 4. Chronic kidney disease. 5. Congestive heart failure. 6. Type 2 diabetes mellitus. 7. History of hypertension. 8. History of coronary artery disease. 9. History of myocardial infarction. 10. History of hypothyroidism. RECOMMENDATIONS: From infectious disease point of view, will give her Tamiflu 75 mg p.o. daily for 5 days. Will give her Levaquin of 250 mg daily with dialysis. Will add cefepime one gram daily. Will check CBC. Will check chem panel. Await blood cultures. Laboratory data reviewed and chart reviewed. Thank you for asking me to see this patient. Job#: [id number] GH
[2017-05-14] MEDS ORDERED: SODIUM CHLORIDE 0.9% 1000ML 2,000 ML IV PRN (19:15)
[2017-05-14] MEDS ORDERED: HEPARIN SOD (PORCINE) 1000 UNIT/ML SDV INJ PRN (19:15)
[2017-05-15] VITALS (8 sets, daily range): BP systolic 100–124; BP diastolic 64–82
[2017-05-15] MEDS: MORPHINE SULFATE 2 MG/ML SYR IV PRN (03:02)
[2017-05-15] MEDS: INSULIN REGULAR, HUMAN 100 UNIT/1 ML 3ML VIAL SQ SCH ×4 (07:30→21:00)
[2017-05-15] MEDS: CEFEPIME HCL 1 GM VIAL IV SCH (08:55)
[2017-05-15] MEDS: OSELTAMIVIR PHOSPHATE 75 MG CAP PO SCH (08:55)
[2017-05-15] MEDS ORDERED: ACETAMINOPHEN 325 MG TAB PO PRN (16:00)
[2017-05-15] MEDS ORDERED: METHOCARBAMOL 750 MG TAB PO PRN (16:00)
[2017-05-15] MEDS: WARFARIN SOD 2.5 MG TAB PO SCH (18:24)
[2017-05-15] MEDS ORDERED: DIPHENHYDRAMINE HCL 25 MG CAP PO PRN (19:45)
[2017-05-15] MEDS: SIMVASTATIN 20 MG TAB PO SCH (20:20)
[2017-05-15] MEDS ORDERED: TEMAZEPAM 15 MG CAP PO PRN (21:00)
[2017-05-16] VITALS (8 sets, daily range): BP systolic 90–121; BP diastolic 47–86
[2017-05-16] MEDS: LEVOTHYROXINE SODIUM 75 MCG TAB PO SCH (06:01)
[2017-05-16 06:29] LABS: BASOPHILS % 0.2 % (0.0-1.0); EOSINOPHILS # (AUTO) 0.1 (0.0-0.4); EOSINOPHILS % 0.9 % (0.0-6.0); HEMATOCRIT 35.1 % (34.2-44.1); HEMOGLOBIN 11.4 g/dL (12.0-16.0); LYMPHOCYTES # (AUTO) 1.3 (1.0-3.2); MEAN CORPUSCULAR HEMOGLOBIN 28.6 pg (28-32); MEAN CORPUSCULAR HGB CONC 32.5 g/dL (31-35); MONOCYTES # (AUTO) 1.7 (0.2-0.8); MONOCYTES % 11.5 % (4.4-11.3); NEUTROPHILS # (AUTO) 11.5 (2.1-6.9); NEUTROPHILS % 77.5 % (38.7-80.0); PLATELET COUNT 231 x10e3/uL (140-360); RED BLOOD COUNT 3.99 x10e6/uL (3.6-5.1); RED CELL DISTRIBUTION WIDTH 20.5 % (11.7-14.4)
[2017-05-16 06:42] LABS: INR 1.53; PROTHROMBIN TIME 17.3 seconds (11.9-14.5)
[2017-05-16] MEDS: INSULIN REGULAR, HUMAN 100 UNIT/1 ML 3ML VIAL SQ SCH ×4 (07:30→21:58)
[2017-05-16 07:50] LABS: ANISOCYTOSIS SLIGHT; LYMPHOCYTES % (MANUAL) 12 % (19-48); MONOCYTES % (MANUAL) 8 % (3.4-9.0); NEUTROPHILS % (MANUAL) 80 % (40-74); PLATELET ESTIMATE ADEQUATE; PLATELET MORPHOLOGY COMMENT NORMAL; RBC MORPHOLOGY COMMENT NORMAL
[2017-05-16] MEDS: ATENOLOL 50 MG TAB PO SCH ×2 (08:24→14:14)
[2017-05-16] MEDS: OSELTAMIVIR PHOSPHATE 75 MG CAP PO SCH (08:31)
[2017-05-16] MEDS: ALLOPURINOL 100 MG TAB PO SCH (08:31)
[2017-05-16] MEDS: PANTOPRAZOLE SOD 40 MG TABEC PO SCH (08:31)
[2017-05-16] MEDS: MUPIROCIN 2% OINT 22 GM TUBE TOP SCH (08:40)
[2017-05-16 08:53] LABS: ANION GAP 14.6 mmol/L (8-16); CALCIUM 8.8 mg/dL (8.4-10.2); CREATININE, SERUM 1.98 mg/dL (0.57-1.11); POTASSIUM 4.6 mmol/L (3.5-5.1)
[2017-05-16] MEDS ORDERED: SITAGLIPTIN 100 MG TAB PO SCH (09:00)
[2017-05-16] MEDS ORDERED: SITAGLIPTIN PHOSPHATE 25 MG PO SCH (09:00)
[2017-05-16] MEDS ORDERED: SIMVASTATIN 40 MG TAB PO SCH (09:00)
[2017-05-16] MEDS ORDERED: SPIRONOLACTONE 25 MG TAB PO SCH (09:00)
[2017-05-16] MEDS ORDERED: POTASSIUM CHLORIDE 10 MEQ TABCR PO SCH (09:00)
[2017-05-16] MEDS ORDERED: GLIMEPIRIDE 2 MG TAB PO SCH (09:00)
[2017-05-16] MEDS: ALBUTEROL/IPRATROPIUM 3 ML NEB NEB SCH ×3 (11:16→20:45)
[2017-05-16] MEDS: FUROSEMIDE 40 MG TAB PO SCH (12:54)
[2017-05-16] MEDS: CEFEPIME HCL 1 GM VIAL IV SCH (12:54)
[2017-05-16] MEDS ORDERED: ALBUMIN HUMAN 12.5GM / 50ML IV PRN (14:45)
[2017-05-16] MEDS ORDERED: MANNITOL 25% 12.5GM/50 ML VIAL IV PRN (14:45)
[2017-05-16] MEDS ORDERED: SODIUM CHLORIDE 0.9% 250ML 500 ML IV PRN (14:45)
--- NOTE | 2017-05-16 15:58 | Diagnostic Imaging Report ---
EXAMINATION: CHEST SINGLE (PORTABLE) INDICATION: \S\SOB \S\[id number] \S\1340 \S\Y COMPARISON: Chest radiograph 05/14/2017 FINDINGS: See impression. Soft tissues and bones are unchanged. IMPRESSION: 1. Stable right IJ hemodialysis catheter. 2. Stable left mid lung opacity concerning for pneumonia. 3. Increased retrocardiac opacity which may represent atelectasis or worsening pneumonia. 4. Improved right basilar airspace opacity likely representing atelectasis. 5. Mild interstitial edema and small left pleural effusion. Stable enlargement of the cardiac silhouette. Signed by: DR. Danny Smith MD on 05/16/2017 3:55 PM
[2017-05-16] MEDS: WARFARIN SOD 2.5 MG TAB PO SCH (16:37)
[2017-05-16] MEDS: SIMVASTATIN 20 MG TAB PO SCH (21:56)
[2017-05-16] MEDS: TRAMADOL HCL 50 MG TAB PO PRN (23:30)
[2017-05-17] MEDS: ALBUTEROL/IPRATROPIUM 3 ML NEB NEB SCH ×5 (00:10→16:04)
[2017-05-17 04:56] VITALS: BP 104/59
[2017-05-17] MEDS: LEVOTHYROXINE SODIUM 75 MCG TAB PO SCH (05:45)
[2017-05-17 06:18] LABS: BASOPHILS % 0.3 % (0.0-1.0); EOSINOPHILS # (AUTO) 0.1 (0.0-0.4); EOSINOPHILS % 0.7 % (0.0-6.0); HEMATOCRIT 36.6 % (34.2-44.1); HEMOGLOBIN 11.7 g/dL (12.0-16.0); LYMPHOCYTES # (AUTO) 1.4 (1.0-3.2); LYMPHOCYTES % 10.7 % (18.0-39.1); MEAN CORPUSCULAR VOLUME 87.6 fL (81-99); NEUTROPHILS # (AUTO) 9.7 (2.1-6.9); PLATELET COUNT 244 x10e3/uL (140-360); RED BLOOD COUNT 4.18 x10e6/uL (3.6-5.1); RED CELL DISTRIBUTION WIDTH 20.4 % (11.7-14.4)
[2017-05-17 06:32] LABS: INR 1.75; PROTHROMBIN TIME 19.2 seconds (11.9-14.5)
[2017-05-17 06:50] LABS: ANION GAP 13.2 mmol/L (8-16); CALCIUM 8.9 mg/dL (8.4-10.2); CREATININE, SERUM 1.57 mg/dL (0.57-1.11); POTASSIUM 4.2 mmol/L (3.5-5.1)
[2017-05-17] MEDS: INSULIN REGULAR, HUMAN 100 UNIT/1 ML 3ML VIAL SQ SCH ×3 (07:19→16:30)
[2017-05-17 07:45] VITALS: BP 102/57
[2017-05-17] MEDS: OSELTAMIVIR PHOSPHATE 75 MG CAP PO SCH (09:10)
[2017-05-17] MEDS: MUPIROCIN 2% OINT 22 GM TUBE TOP SCH (09:10)
[2017-05-17] MEDS: FUROSEMIDE 40 MG TAB PO SCH (09:10)
[2017-05-17] MEDS: ALLOPURINOL 100 MG TAB PO SCH (09:10)
[2017-05-17] MEDS: CEFEPIME HCL 1 GM VIAL IV SCH (09:10)
[2017-05-17] MEDS: PANTOPRAZOLE SOD 40 MG TABEC PO SCH (09:10)
[2017-05-17] MEDS ORDERED: AZITHROMYCIN 250MG/NS 100 ML 100 ML IV SCH (12:00)
[2017-05-17 13:50] VITALS: BP 109/55
[2017-05-17 13:51] VITALS: BP 109/55
[2017-05-17 16:30] VITALS: BP 99/80
[2017-05-17] MEDS: WARFARIN SOD 2.5 MG TAB PO SCH (16:30)
[2017-05-17] MEDS: TRAMADOL HCL 50 MG TAB PO PRN (16:39)
[2017-05-17 19:56] VITALS: BP 120/79
== END 2017-05-17 20:48 | DRG 871 ==
LOC: ER 14:31 → ERHOLD 18:03 → IMCU 21:38
PROC: 5A1D70Z Performance of Urinary Filtration, Intermittent, Less than 6 Hours Per Day (ICD-10-PCS; principal; 2017-05-14)
PROC: 5A1D70Z Performance of Urinary Filtration, Intermittent, Less than 6 Hours Per Day (ICD-10-PCS; 2017-05-16)
DX: A41.89 Other specified sepsis (principal); J10.00 Influenza due to other identified influenza virus with unspecified type of pneumonia; I13.2 Hypertensive heart and chronic kidney disease with heart failure and with stage 5 chronic kidney disease, or end stage renal disease; J18.9 Pneumonia, unspecified organism; E11.22 Type 2 diabetes mellitus with diabetic chronic kidney disease; I50.9 Heart failure, unspecified; L03.115 Cellulitis of right lower limb; N18.6 End stage renal disease; N39.0 Urinary tract infection, site not specified; E87.1 Hypo-osmolality and hyponatremia; Z99.2 Dependence on renal dialysis; Z79.4 Long term (current) use of insulin; I25.10 Atherosclerotic heart disease of native coronary artery without angina pectoris; I25.2 Old myocardial infarction; E03.9 Hypothyroidism, unspecified; Z95.1 Presence of aortocoronary bypass graft; R09.02 Hypoxemia; D63.1 Anemia in chronic kidney disease
CPT/HCPCS: 36415; 71045; 74176; 80048; 80053; 81001; 82550; 82553; 82947; 82948; 83605; 83880; 84484; 85025; 85610; 85730; 86707; 87040; 87086; 87186; 87340; 87400; 90962; 93005; 94640; 96372; J0456; J0692; J0696; J1644; J2270; J7030

== ENCOUNTER 2017-11-22 13:08 | Inpatient (IN) | payer MEDICARE, BC ==
[~2017-11-22] VITALS: Ht 160 cm; Wt 82.2 kg
[~2017-11-22 13:08] MED LIST changes: +ROBAXIN-750750 MG PO; +SODIUM CHLORIDE FLUSH 10 ML SYR INJ ONE; +WARFARIN SODIU2.5 MG PO
[2017-11-22 13:50] LABS: BASOPHILS # (AUTO) 0.1 (0.0-0.1); BASOPHILS % 0.7 % (0.0-1.0); EOSINOPHILS # (AUTO) 0.2 (0.0-0.4); EOSINOPHILS % 1.4 % (0.0-6.0); HEMATOCRIT 33.6 % (34.2-44.1); HEMOGLOBIN 10.8 g/dL (12.0-16.0); LYMPHOCYTES # (AUTO) 1.8 (1.0-3.2); LYMPHOCYTES % 13.1 % (18.0-39.1); MEAN CORPUSCULAR HEMOGLOBIN 29.9 pg (28-32); MEAN CORPUSCULAR HGB CONC 32.1 g/dL (31-35); MEAN CORPUSCULAR VOLUME 93.1 fL (81-99); MONOCYTES # (AUTO) 1.2 (0.2-0.8); MONOCYTES % 8.6 % (4.4-11.3); NEUTROPHILS # (AUTO) 10.1 (2.1-6.9); NEUTROPHILS % 74.9 % (38.7-80.0); PLATELET COUNT 244 x10e3/uL (140-360); RED BLOOD COUNT 3.61 x10e6/uL (3.6-5.1); RED CELL DISTRIBUTION WIDTH 16.7 % (11.7-14.4)
[2017-11-22 14:00] LABS: INR 2.34; PROTHROMBIN TIME 24.1 seconds (11.9-14.5)
[2017-11-22 14:07] LABS: ALBUMIN 2.9 g/dL (3.5-5.0); ALBUMIN/GLOBULIN RATIO 0.8 (0.8-2.0); ANION GAP 16.7 mmol/L (8-16); CALCIUM 9.2 mg/dL (8.4-10.2); CREATININE, SERUM 1.85 mg/dL (0.57-1.11); POTASSIUM 3.7 mmol/L (3.5-5.1)
[2017-11-22 14:14] LABS: CREATINE KINASE MB 0.5 ng/mL (0-5.0)
--- NOTE | 2017-11-22 14:26 | Diagnostic Imaging Report ---
EXAM: CHEST 2 VIEWS, PA and lateral DATE: 11/22/2017 1:25 PM Time stamp on exam: 1:43 PM INDICATION: Shortness of breath COMPARISON: 05/16/2017 FINDINGS: LINES/TUBES: Dual-lumen right IJ tunneled hemodialysis catheter again noted. There are sternotomy wire sutures. LUNGS: Moderate pulmonary edema secondary to volume overload. PLEURA: Small pleural effusions. HEART AND MEDIASTINUM: The heart is enlarged. BONES AND SOFT TISSUES: No acute findings. IMPRESSION: Moderate pulmonary edema secondary to volume overload. Signed by: Dr. Alin Reese DO on 11/22/2017 2:23 PM
[2017-11-22] MEDS ORDERED: ASPIRIN 81 MG CHEW TAB PO ONE (15:00)
[2017-11-22 16:15] VITALS: BP 121/67
[2017-11-22] MEDS ORDERED: FUROSEMIDE INJ 10 MG/ML 4 ML VIAL IV SCH (17:00)
[2017-11-22] MEDS ORDERED: METHOCARBAMOL 750 MG TAB PO PRN (17:30)
[2017-11-22 17:45] VITALS: BP 121/67
[2017-11-22 20:00] VITALS: BP 131/74
[2017-11-22] MEDS: CRESTOR 10MG PO SCH (20:49)
[2017-11-22] MEDS: TEMAZEPAM 15 MG CAP PO PRN (20:52)
[2017-11-22 22:48] LABS: CREATINE KINASE MB 0.5 ng/mL (0-5.0)
[2017-11-23] VITALS (8 sets, daily range): BP systolic 132–152; BP diastolic 57–77
[2017-11-23] MEDS: LEVOTHYROXINE SODIUM 75 MCG TAB PO SCH (05:20)
[2017-11-23 06:03] LABS: CREATINE KINASE MB 0.5 ng/mL (0-5.0)
[2017-11-23] MEDS ORDERED: GLIMEPIRIDE 2 MG TAB PO SCH (09:00)
[2017-11-23] MEDS ORDERED: SIMVASTATIN 40 MG TAB PO SCH (09:00)
[2017-11-23] MEDS ORDERED: WARFARIN SOD 2.5 MG TAB PO SCH ×2 (09:00→17:00)
[2017-11-23] MEDS: ATENOLOL 50 MG TAB PO SCH ×2 (09:00→19:46)
[2017-11-23] MEDS ORDERED: POTASSIUM CHLORIDE 10 MEQ TABCR PO SCH (09:00)
[2017-11-23] MEDS ORDERED: LEVOTHYROXINE SODIUM 75 MCG TAB PO SCH (09:00)
[2017-11-23] MEDS: PANTOPRAZOLE SOD 40 MG TABEC PO SCH (09:14)
[2017-11-23] MEDS: SPIRONOLACTONE 25 MG TAB PO SCH (09:14)
[2017-11-23] MEDS: FUROSEMIDE 40 MG TAB PO SCH (09:14)
[2017-11-23] MEDS: ALLOPURINOL 100 MG TAB PO SCH (09:15)
--- NOTE | 2017-11-23 09:40 | Consultation ---
DATE OF CONSULTATION: November 23, 2017 RENAL CONSULTATION REASON FOR CONSULTATION: End-stage renal disease and volume overload. HISTORY OF PRESENT ILLNESS: An 82-year-old female with end-stage renal disease on hemodialysis Sunday, Sunday and Sunday at [facility]. She presented to [facility] with shortness of breath and dyspnea on exertion. Patient denied having any chest pain. She did say her breathing was tight at times. She has developed worsening lower extremity swelling. Patient's initial blood pressure was 121/67 with a pulse of 98, respiratory rate 18, temperature 98.8. The patient was admitted, and nephrology consultation was called. REVIEW OF SYSTEMS: As above. All other systems negative. PAST MEDICAL HISTORY 1. End-stage renal disease on hemodialysis Sunday, Sunday and Sunday at [facility]. Dialysis is currently through a tunneled dialysis catheter. 2. Congestive heart failure. 3. Type-2 diabetes. 4. Hypertension. 5. Coronary artery disease with history of IL. 6. Dyslipidemia. 7. Thyroid disease. PAST SURGICAL HISTORY 1. CABG. 2. Cholecystectomy. 3. Hysterectomy. 4. Tunneled dialysis catheter. 5. Left upper extremity AV fistula. SOCIAL HISTORY: No tobacco. No alcohol. FAMILY HISTORY: Noncontributory. ALLERGIES: LOSARTAN. CURRENT MEDICATIONS: See list. PHYSICAL EXAMINATION VITALS: Blood pressure 132/66, pulse 94, respiratory rate 19, temperature 96.4. GENERAL: No apparent distress. HEENT: Oropharynx is clear. No scleral icterus. No periorbital edema. NECK: Supple. Difficult to assess jugular venous pressure. CHEST: Decreased breath sounds at bases anteriorly bilaterally. CARDIOVASCULAR: Regular rhythm. ABDOMEN: Soft. Positive bowel sounds. No tenderness. EXTREMITIES: There is 2+ pitting edema. IMAGING: Chest x-ray with pulmonary edema. LABS: White count 13.5, hemoglobin 10.8, hematocrit 33.6, platelets 244. Sodium 135, potassium 3.7, BUN 25, creatinine 1.85. ASSESSMENT AND PLAN 1. End-stage renal disease. Will plan for hemodialysis today and continue Sunday, Sunday and Sunday. 2. Congestive heart failure with volume overload. Will ultrafiltrate with hemodialysis today and schedule her for ultrafiltration again in the morning. 3. Electrolytes are acceptable. 4. Anemia secondary to chronic kidney disease. Goal is between 10 and 11.5. 5. Diabetes per primary team. Will change to glipizide as it is shorter acting. Job#: [id number] REECE
[2017-11-23] MEDS ORDERED: SODIUM CHLORIDE 0.9% 1000ML 2,000 ML ONE (13:43)
[2017-11-23] MEDS ORDERED: SODIUM CHLORIDE 0.9% 1000ML 1,000 ML IV PRN (18:45)
[2017-11-23] MEDS ORDERED: HEPARIN SOD (PORCINE) 1000 UNIT/ML SDV IV PRN (18:45)
[2017-11-23] MEDS: CRESTOR 10MG PO SCH (19:46)
[2017-11-23] MEDS: TRAMADOL HCL 50 MG TAB PO PRN (19:47)
[2017-11-23] MEDS: TEMAZEPAM 15 MG CAP PO PRN (19:47)
--- NOTE | 2017-11-23 20:40 | Consultation ---
DATE OF CONSULTATION: November 23, 2017 CARDIOLOGY CONSULT NOTE REASON FOR CONSULTATION: Heart failure. CHIEF COMPLAINT: Shortness of breath. HISTORY OF PRESENT ILLNESS: Ms. Mello is a an 82-year-old female that is well known to our practice. She has a history of atrial fibrillation, end-stage renal disease, coronary artery disease, peripheral arterial disease, and systolic heart failure. She is presenting with volume overload and shortness of breath. Patient says that she has been having her normal dialysis and she has been compliant with her medicines, as well as her dietary restriction of sodium. She denies any chest pain, but reports significant dyspnea on exertion, orthopnea, and PND that worsened subacutely in the last 2 days. She denies any syncope, fevers, chills, palpitations, nausea or vomiting. Notably, she recently started antibiotics for superficial infection of her left AV fistula graft site. PAST MEDICAL HISTORY 1. Coronary artery disease. 2. Atrial fibrillation. 3. Peripheral arterial disease. 4. Valvular heart disease with mitral valve click. 5. Systolic heart failure. 6. Hypertension. 7. Peripheral arterial disease. 8. End-stage renal disease. 9. History of bilateral lower extremity wounds. FAMILY HISTORY: Noncontributory. SOCIAL HISTORY: She is a nonsmoker. Denies any illicit drug use or any alcohol use. PHYSICAL EXAM VITALS: Temperature 97.1, pulse 87, respiratory rate 24, blood pressure 143/67, satting 98% on 2-L nasal cannula. GENERAL: Elderly white female, in no acute distress. CARDIOVASCULAR: Irregular rhythm. Normal S1, S2. PMI with right ventricular heave and sustained apical impulse with a 3/6 holosystolic murmur heard at the apex. Normal carotid pulses, normal radial pulses, weak pedal pulses bilaterally. RESPIRATORY: No respiratory distress. Bibasilar crackles. ABDOMEN: Soft, nontender, nondistended. No masses. NEURO AND PSYCH: Patient is alert and oriented to person, place, and time, has a normal affect. LABORATORY DATA: Reviewed, shows a white count 13.5, hemoglobin is 10.8, troponin is negative times 3. BNP is 1868 on presentation. Home as well as an inpatient cardiovascular medicines reviewed. IMAGING DATA: Reviewed. TELEMETRY DATA: Reviewed. ASSESSMENT AND PLAN 1. [id number] systolic and diastolic heart failure. 2. Coronary artery disease. 3. Mitral regurgitation, status post mitral clip. 4. Atrial fibrillation, on anticoagulation with warfarin. 5. Peripheral arterial disease with history of lower extremity ulcers. 6. Chronic lower extremity edema. 7. End-stage renal disease, on hemodialysis. PLAN: INR is therapeutic and she is rate controlled. She denies any chest pain and cardiac enzymes were negative. EKG without any signs of ischemia. She is significantly volume overloaded with pulmonary edema and lower extremity edema, as well as hypertension needs significant volume removal during hemodialysis, which has already been initiated by the renal service. Will defer to them in this regard. Continue her home cardiovascular medications. Thank you for this consult. Will continue to follow. Job#: [id number] CQ
[2017-11-24] VITALS (55 sets, daily range): BP systolic 74–126; BP diastolic 27–95
[2017-11-24] MEDS: LEVOTHYROXINE SODIUM 75 MCG TAB PO SCH (05:16)
[2017-11-24 05:49] LABS: BASOPHILS # (AUTO) 0.1 (0.0-0.1); BASOPHILS % 0.2 % (0.0-1.0); HEMATOCRIT 36.9 % (34.2-44.1); HEMOGLOBIN 11.6 g/dL (12.0-16.0); LYMPHOCYTES # (AUTO) 4.2 (1.0-3.2); MEAN CORPUSCULAR HGB CONC 31.4 g/dL (31-35); MEAN CORPUSCULAR VOLUME 95.3 fL (81-99); MONOCYTES % 3.8 % (4.4-11.3); NEUTROPHILS # (AUTO) 45.2 (2.1-6.9); NEUTROPHILS % 86.7 % (38.7-80.0); PLATELET COUNT 247 x10e3/uL (140-360); RED BLOOD COUNT 3.87 x10e6/uL (3.6-5.1); RED CELL DISTRIBUTION WIDTH 17.1 % (11.7-14.4)
[2017-11-24 06:09] LABS: ALANINE AMINOTRANSFERASE 15 IU/L (0-55); ALBUMIN 3.1 g/dL (3.5-5.0); ALBUMIN/GLOBULIN RATIO 0.8 (0.8-2.0); ALKALINE PHOSPHATASE 331 IU/L (40-150); ANION GAP 20.1 mmol/L (8-16); BLOOD UREA NITROGEN 19 mg/dL (7-26); BUN/CREATININE RATIO 10 (6-25); CALCIUM 9.4 mg/dL (8.4-10.2); CARBON DIOXIDE 22 mmol/L (22-29); CHLORIDE 96 mmol/L (98-107); CREATININE, SERUM 1.98 mg/dL (0.57-1.11); EST GLOMERULAR FILTRATION RATE 24 ML/MIN (60-); GLUCOSE 151 mg/dL (74-118); POTASSIUM 5.1 mmol/L (3.5-5.1); SODIUM 133 mmol/L (136-145)
[2017-11-24 06:18] LABS: BASOPHILS # (AUTO) 0.1 (0.0-0.1); BASOPHILS % 0.2 % (0.0-1.0); HEMATOCRIT 34.2 % (34.2-44.1); LYMPHOCYTES % 4.2 % (18.0-39.1); MEAN CORPUSCULAR HEMOGLOBIN 30.3 pg (28-32); MEAN CORPUSCULAR HGB CONC 32.2 g/dL (31-35); MEAN CORPUSCULAR VOLUME 94.2 fL (81-99); MONOCYTES # (AUTO) 1.6 (0.2-0.8); MONOCYTES % 3.5 % (4.4-11.3); NEUTROPHILS # (AUTO) 42.5 (2.1-6.9); PLATELET COUNT 245 x10e3/uL (140-360); RED BLOOD COUNT 3.63 x10e6/uL (3.6-5.1)
[2017-11-24 06:21] LABS: INR 2.12; PROTHROMBIN TIME 22.3 seconds (11.9-14.5)
[2017-11-24 06:23] LABS: CREATINE KINASE < 14 IU/L (29-168)
--- NOTE | 2017-11-24 06:25 | Diagnostic Imaging Report ---
CHEST SINGLE (PORTABLE), 11/24/2017 5:44 AM Technique: CHEST SINGLE (PORTABLE) Comparison: 11/22/2017 Clinical history: Respiratory distress Findings: See Impression Impression: 1. Lines/Tubes: Stable right IJ dual-lumen tunneled dialysis catheter. Median sternotomy wires. Clips overlie the neck. Skin davis project over the left arm. 2. Stable moderately enlarged cardiac silhouette. 3. Pulmonary edema with small effusions. Signed by: Dr Genet Roy MD on 11/24/2017 6:21 AM
[2017-11-24 06:29] LABS: ALBUMIN 2.8 g/dL (3.5-5.0); ALBUMIN/GLOBULIN RATIO 0.8 (0.8-2.0); CALCIUM 8.9 mg/dL (8.4-10.2); CREATININE, SERUM 1.98 mg/dL (0.57-1.11)
[2017-11-24] MEDS ORDERED: CEFEPIME HCL 1 GM VIAL ONE (08:05)
[2017-11-24] MEDS ORDERED: VANCOMYCIN 1GM/NS 250 ML 250 ML ONE (08:05)
[2017-11-24 08:06] LABS: LYMPHOCYTES % (MANUAL) 10 % (19-48); MONOCYTES % (MANUAL) 3 % (3.4-9.0); NEUTROPHILS % (MANUAL) 87 % (40-74)
[2017-11-24] MEDS ORDERED: SODIUM CHLORIDE 0.9% 500ML 500 ML ONE (08:06)
[2017-11-24 08:07] LABS: ANISOCYTOSIS SLIGHT; PLATELET ESTIMATE ADEQUATE; PLATELET MORPHOLOGY COMMENT NORMAL; POIKILOCYTOSIS SLIGHT; RBC MORPHOLOGY COMMENT NORMAL
[2017-11-24 08:25] LABS: CREATINE KINASE MB 0.4 ng/mL (0-5.0)
[2017-11-24] MEDS: FUROSEMIDE 40 MG TAB PO SCH (09:00)
[2017-11-24] MEDS: ATENOLOL 50 MG TAB PO SCH (09:00)
[2017-11-24] MEDS: GLIPIZIDE 5 MG TAB PO SCH (09:00)
--- NOTE | 2017-11-24 09:00 | Diagnostic Imaging Report ---
EXAMINATION: CHEST SINGLE (PORTABLE) 11/24/2017 8:07 AM COMPARISON: 11/24/2017 at 0553 INDICATION: Rapid response DISCUSSION: LINES: Right internal jugular dual lumen central venous catheter with tip in the right atrium. LUNGS: Mild pulmonary edema, unchanged. PLEURA: Small pleural effusions, unchanged. HEART AND MEDIASTINUM: Cardiomegaly, unchanged. Atherosclerosis of the thoracic aorta. Median sternotomy wires are intact. Calcified hilar lymph nodes BONES AND SOFT TISSUES: No acute osseous lesion. The soft tissues are normal. IMPRESSION: No significant interval change. Cardiomegaly with mild interstitial edema and small effusions. Jason Bailey MD Signed by: Dr. Jason Bailey M.D. on 11/24/2017 8:56 AM
[2017-11-24] MEDS ORDERED: CEFEPIME HCL 1 GM VIAL IV ONE (09:30)
[2017-11-24] MEDS: TRAMADOL HCL 50 MG TAB PO PRN ×2 (09:30→22:24)
[2017-11-24] MEDS ORDERED: ATROPINE SULFATE 0.1 MG/ML 10ML SYR IV ONE (10:24)
[2017-11-24] MEDS ORDERED: ATROPINE SULFATE 0.1 MG/ML 10ML SYR IV NR (10:30)
[2017-11-24] MEDS: SPIRONOLACTONE 25 MG TAB PO SCH (10:31)
[2017-11-24] MEDS: PANTOPRAZOLE SOD 40 MG TABEC PO SCH (10:33)
[2017-11-24] MEDS: ALLOPURINOL 100 MG TAB PO SCH (10:33)
--- NOTE | 2017-11-24 13:32 | Progress Note ---
DATE: November 24, 2017 CARDIOLOGY PROGRESS NOTE SUBJECTIVE: Patient had rapid response called early this morning for atrial fibrillation with slow ventricular heart rate to the 20s and 30s. On evaluation, the patient was awake and alert but felt lightheaded and complained of shortness of breath. She was found to be hypoxic with O2 sat of 88% on 3 liters nasal cannula and was placed on 15-liter nonrebreather. Before EKG could be obtained, her heart rate improved to the 80s. The patient remained on the floor. However, she subsequently had another rapid response called later this morning with hypotension to the 70s/40s and heart rate in the 40s and 50s. She was subsequently transferred to the ICU for dopamine infusion and given 1 mg of atropine. The patient currently denies any symptoms. Denies any chest pain or shortness of breath. OBJECTIVE VITAL SIGNS: Temperature 97 degrees, pulse 57, respiratory rate 18, blood pressure 78/45, oxygen saturation 94% on 4 liters nasal cannula. GENERAL: Elderly woman in no acute distress, awake and alert. LUNGS: Clear to auscultation bilaterally other than bibasilar crackles. CARDIOVASCULAR: Irregularly irregular, normal rate. RV heave with a 3/6 systolic murmur at the apex. Palpable distal pulses. EXTREMITIES: There is 2+ pitting edema. CARDIAC MEDICATIONS 1. Spironolactone 25 mg p.o. daily. 2. Levothyroxine 75 mcg p.o. daily. 3. Warfarin 2.5 mg p.o. daily. 4. Furosemide 40 mg p.o. daily. LABS: WBC 46.7, hemoglobin 11, hematocrit 34.2, platelets 245. Sodium 132, potassium 5, chloride 97, CO2 21, BUN 20, creatinine 1.98. Troponin is 0.031. TELEMETRY: Atrial fibrillation with episodes of rapid ventricular response as well as slow ventricular response. CHEST X-RAY: No significant interval change. Cardiomegaly with mild interstitial edema and small effusion. IMPRESSION 1. Chygg-ea-kuietts systolic and diastolic heart failure. 2. Coronary artery disease. 3. Mitral regurgitation and mitral stenosis, status post MitraClip. 4. Atrial fibrillation on anticoagulation with warfarin. 5. Sick sinus syndrome. 6. Peripheral arterial disease with history of lower extremity ulcers. 7. End-stage renal disease on hemodialysis. RECOMMENDATIONS: INR is currently therapeutic. Supportive care with dopamine given hypotension and bradycardia. Antibiotics per infectious disease as the patient has elevated white count, suspect sepsis. Volume management per nephrology given end-stage renal disease on hemodialysis. Suspect the patient needs a permanent pacemaker insertion. However, she is currently not a candidate given her suspected infection. Hold all AV maya blocking agents in the meantime. Continue current cardiac medications otherwise. Thank you for this consult. We will continue to follow. Job#: [id number]
--- NOTE | 2017-11-24 14:18 | Progress Note ---
DATE: INTERNAL MEDICINE PROGRESS NOTE SUBJECTIVE: She is an 82-year-old female who has a past medical history positive for end-stage renal disease, history of chronic systolic and diastolic congestive heart failure, history of coronary artery disease, history of mitral regurgitation, end-stage renal disease on dialysis, peripheral vascular disease. Patient was on the medical floor. She was originally admitted with congestive heart failure, and she started getting hypotensive. The heart rate fell to the 40s and 50s. The patient was transferred to the intensive care unit. PHYSICAL EXAMINATION VITAL SIGNS: Today, blood pressure is 87/46. Now, on the dopamine, it is a little better at 111/57. Heart rate is in the 50s to 80 per minute. Respiratory rate is 20 per minute. Oxygen saturation is 96%. Temperature 97.0 degrees Fahrenheit. HEART: Regularly irregular heart rate, normal S1 and S2 sounds. LUNGS: Clear bilaterally. ABDOMEN: Soft. EXTREMITIES: Tenderness on the left arteriovenous graft. BLOOD WORK: We have BMP with a sodium 132, potassium 5.0, chloride 97, CO2 21, BUN 20, creatinine 1.98. Glucose 170. On the CBC, white blood count 14,700, which is significantly elevated. Hemoglobin 11.0, hematocrit 34.2, platelet count 145,000. PT 22.3, INR 2.12, PTT 43.0. AST 21, ALT 14, total bilirubin 2.3, alkaline phosphatase 296. Chest x-ray showed mild CHF. Blood culture has been sent. Report is pending. Stool for C. difficile is going to be sent also because of diarrhea. We are suspecting C. difficile colitis. FINAL IMPRESSION 1. Septic shock. 2. Bradycardia. 3. End-stage renal disease on dialysis. 4. Acute diarrhea, rule out Clostridium difficile colitis. 5. Chronic atrial fibrillation. 6. Aruud-en-kbfafia systolic and diastolic congestive heart failure. 7. Peripheral vascular disease. 8. Chronic lower extremity edema. 9. Redness on the arteriovenous graft, rule out infected arteriovenous graft. 10. Mitral regurgitation. 11. History of coronary artery disease. 12. Diabetes mellitus, type 2, with end-stage renal disease. PLAN OF TREATMENT: She received vancomycin and cefepime x1 dose. Will consult Dr. Morales for infectious diseases. Dr. Cosme is seeing her from the cardiology point of view. Dr. Sifuentes, pulling machine operator, is taking the place of Dr. Cosme today for cardiology. Dr. Roger Bruno is the social secretary on the case also for dialysis. Patient is also on a dopamine drip right now. We discontinued the atenolol. She is on allopurinol 100 mg daily, furosemide 40 mg daily, Aldactone 25 mg daily, Crestor 5 mg at bedtime, levothyroxine 75 mcg daily, tramadol 50 mg q.4 h. as needed for pain, glipizide 2.5 mg daily, metoprolol 150 mg 3 times a day. She is on Coumadin 2.5 mg daily. She is on Protonix 40 mg daily and temazepam 15 mg at bedtime as needed for sleep. The patient is in the intensive care unit today due to the hypotension and due to the bradycardia. As I said, the heart rate and the blood pressure are much better now that she is on a dopamine drip. Patient already had blood cultures x2. We are going to follow that to see if she has any evidence of any bacteria growing in the blood culture. We are going to send stool for C. difficile as I said to rule out Clostridium difficile colitis, which can produce this drop in the blood pressure and this increase in the white blood count. Her lactic acid is extremely high because of sepsis. Time spent around 1 hour due to the fact that all the phone calls, talked with the nurses, discussed the case with the pulling machine operator, discussed the case with the family at bedside. Medications have been reviewed. Medications all have been placed also. Extremely complex case also. Job#: [id number]
[2017-11-24] MEDS ORDERED: LIDOCAINE HCL 2% LOCAL 20 ML VIAL ONE (14:19)
[2017-11-24] MEDS ORDERED: SODIUM CHLORIDE 0.9% 500ML 1,000 ML ONE (14:19)
[2017-11-24] MEDS ORDERED: DIATRIZOATE MEGL/DIATRIZOA SOD 30 ML BTL PO ONE (16:58)
[2017-11-24] MEDS: VANCOMYCIN 250MG/5ML ORAL SOLN PO SCH ×2 (17:42→23:51)
[2017-11-24 17:48] LABS: CREATINE KINASE MB 0.8 ng/mL (0-5.0)
--- NOTE | 2017-11-24 20:36 | Diagnostic Imaging Report ---
EXAM: CT ABDOMEN/PELVIS WO DATE: 11/24/2017 3:51 PM INDICATION: Colitis COMPARISON: 05/13/2017 TECHNIQUE: The abdomen and pelvis were scanned using a multidetector helical scanner. Coronal and sagittal reformations were obtained. IV Contrast: 0 ml Isovue 300/370 FINDINGS: Lack of IV contrast decreases sensitivity in evaluating abdominal and pelvic organs. LOWER THORAX: Cardiomegaly status post median sternotomy with atherosclerotic disease. Moderate pleural effusions. LIVER/BILIARY: Nodular contour which can be seen with underlying liver disease. Suboptimal assessment for masses without IV contrast. GALLBLADDER: Surgically absent SPLEEN: No splenomegaly. Calcified splenic granulomas PANCREAS: Unremarkable ADRENALS: No nodules KIDNEYS: Focal left inferior renal scarring. No stones. No hydronephrosis. GI TRACT: Diverticulosis is noted. There is mild long segment wall thickening of the sigmoid colon. Appendix is not clearly seen. VESSELS: Extensive severe atherosclerotic calcifications. Right femoral catheter terminates at the inferior IVC just above the iliac bifurcation. PERITONEUM/RETROPERITONEUM: Mild ascites LYMPH NODES: No lymphadenopathy REPRODUCTIVE ORGANS/BLADDER: Poorly assessed due to streak artifact from right hip hardware. Air in the bladder, presumably iatrogenic. SOFT TISSUES: Anasarca. BONES: Right hip arthroplasty. IMPRESSION: 1. Long segment thickening of the sigmoid colon which may reflect chronic diverticular change in the setting of diverticulosis or mild colitis. 2. Moderate visualized pleural effusions, mild ascites and anasarca. Signed by: Dr Genet Roy MD on 11/24/2017 8:32 PM
--- NOTE | 2017-11-24 21:01 | Consultation ---
DATE OF CONSULTATION: REASON FOR CONSULTATION: Sepsis, septic shock. HISTORY: This is an 82-year-old white female, end-stage renal disease, on hemodialysis. The patient has diabetes mellitus, hypertension, coronary artery disease before, myocardial infarction before, hyperlipidemia, hypothyroidism, history of CABG, cholecystectomy, hysterectomy, tunneled dialysis catheter, left upper extremity AV fistula. The patient was admitted on November 22 to [facility]. Apparently, this patient was recently in the hospital for cellulitis of the arm, received antibiotics. Patient was admitted with shortness of breath, was found to be in heart failure, but is also noted to have mild leukocytosis. The patient overnight she became acutely ill, hypotensive, dropped her blood pressure. She is currently on vasopressors, had to have an IV access with central line. She had 1 loose stool. The patient is currently transferred to intensive care unit. PAST MEDICAL HISTORY: As above. PAST SURGICAL HISTORY: As above. ALLERGIES: NKA. SOCIAL HISTORY: There is no smoking, drug abuse, alcohol abuse. FAMILY HISTORY: Otherwise hypertension. REVIEW OF SYSTEMS: CONSTITUTIONAL: Just not feeling well. She has abdominal discomfort. HEENT: Negative. PULMONARY: Negative. CARDIAC: Negative. PHYSICAL EXAMINATION: GENERAL: She is alert, oriented, on vasopressors. HEENT: Normocephalic. NECK: Supple. CHEST: Clear bilaterally. HEART: S1 and S2. No S3, S4, murmur. ABDOMEN: She has diffuse discomfort. IMPRESSION: 1. Sepsis, septic shock, concern of Clostridium difficile colitis. Will put her on vancomycin 250 p.o. q.6., Flagyl [address] abdomen and pelvis STAT to notify me with the results. Continue supportive care. 2. End-stage renal disease. 3. History of coronary artery disease. 4. Will follow. Thank you. Job#: [id number]
[2017-11-24] MEDS: METRONIDAZOLE 500MG/NS 100ML 100 ML IV SCH (21:36)
[2017-11-24] MEDS: CRESTOR 10MG PO SCH (21:36)
[2017-11-24] MEDS: HEPARIN SOD (PORCINE) 5,000 UNIT/ML VIAL SC SCH (22:02)
[2017-11-24] MEDS: DIPHENHYDRAMINE HCL 25 MG CAP PO PRN (23:00)
[2017-11-25] VITALS (65 sets, daily range): BP systolic 39–150; BP diastolic 23–97
[2017-11-25] MEDS: TRAMADOL HCL 50 MG TAB PO PRN ×2 (04:28→21:07)
[2017-11-25 04:53] LABS: BASOPHILS # (AUTO) 0.1 (0.0-0.1); BASOPHILS % 0.3 % (0.0-1.0); EOSINOPHILS # (AUTO) 0.1 (0.0-0.4); EOSINOPHILS % 0.3 % (0.0-6.0); HEMATOCRIT 34.7 % (34.2-44.1); HEMOGLOBIN 10.9 g/dL (12.0-16.0); LYMPHOCYTES # (AUTO) 2.1 (1.0-3.2); LYMPHOCYTES % 8.5 % (18.0-39.1); MEAN CORPUSCULAR HEMOGLOBIN 29.8 pg (28-32); MEAN CORPUSCULAR HGB CONC 31.4 g/dL (31-35); MEAN CORPUSCULAR VOLUME 94.8 fL (81-99); MONOCYTES # (AUTO) 1.7 (0.2-0.8); NEUTROPHILS # (AUTO) 20.1 (2.1-6.9); PLATELET COUNT 279 x10e3/uL (140-360); RED BLOOD COUNT 3.66 x10e6/uL (3.6-5.1); RED CELL DISTRIBUTION WIDTH 16.8 % (11.7-14.4)
[2017-11-25 05:17] LABS: ALBUMIN 2.9 g/dL (3.5-5.0); ALBUMIN/GLOBULIN RATIO 0.8 (0.8-2.0); ANION GAP 19.2 mmol/L (8-16); CALCIUM 8.9 mg/dL (8.4-10.2); CREATININE, SERUM 2.81 mg/dL (0.57-1.11); POTASSIUM 5.2 mmol/L (3.5-5.1)
[2017-11-25] MEDS: LEVOTHYROXINE SODIUM 75 MCG TAB PO SCH (06:48)
[2017-11-25] MEDS: METRONIDAZOLE 500MG/NS 100ML 100 ML IV SCH ×3 (06:48→21:18)
[2017-11-25] MEDS: VANCOMYCIN 250MG/5ML ORAL SOLN PO SCH ×3 (06:48→17:03)
[2017-11-25] MEDS: GLIPIZIDE 5 MG TAB PO SCH (07:30)
[2017-11-25] MEDS: SPIRONOLACTONE 25 MG TAB PO SCH (07:59)
[2017-11-25] MEDS: PANTOPRAZOLE SOD 40 MG TABEC PO SCH (08:03)
[2017-11-25] MEDS: ALLOPURINOL 100 MG TAB PO SCH (08:03)
[2017-11-25] MEDS: HEPARIN SOD (PORCINE) 5,000 UNIT/ML VIAL SC SCH ×2 (08:03→21:04)
[2017-11-25] MEDS: FUROSEMIDE 40 MG TAB PO SCH (08:09)
[2017-11-25 08:38] LABS: BAND NEUTROPHILS % (MANUAL) 7 %; LYMPHOCYTES % (MANUAL) 7 % (19-48); MONOCYTES % (MANUAL) 10 % (3.4-9.0); NEUTROPHILS % (MANUAL) 76 % (40-74)
[2017-11-25 08:39] LABS: PLATELET ESTIMATE ADEQUATE; PLATELET MORPHOLOGY COMMENT NORMAL; RBC MORPHOLOGY COMMENT NORMAL
[2017-11-25] MEDS: DIPHENHYDRAMINE HCL 25 MG CAP PO PRN ×2 (08:57→21:06)
[2017-11-25] MEDS ORDERED: FUROSEMIDE INJ 10 MG/ML 4 ML VIAL IV SCH (09:00)
--- NOTE | 2017-11-25 14:06 | Progress Note ---
DATE: November 25, 2017 CARDIOLOGY PROGRESS NOTE SUBJECTIVE: Patient is more alert today. She denies chest pain or shortness of breath. Remains on dopamine 5 mcg/kg per minute. OBJECTIVE VITAL SIGNS: Temperature 98.2 degrees, pulse 69, respiratory rate 22, blood pressure 96/39. Oxygen saturation is 93% on 4 liters nasal cannula. GENERAL: Elderly woman in no acute distress, awake and alert. LUNGS: Clear to auscultation bilaterally other than bibasilar crackles. CARDIOVASCULAR: Irregularly irregular, normal rate. RV heave with a 3/6 systolic murmur at the apex. Palpable distal pulses. EXTREMITIES: There is 3+ pitting edema. CARDIAC MEDICATIONS 1. Furosemide 40 mg IV daily. 2. Levothyroxine 75 mcg p.o. daily. 3. Rosuvastatin 5 mg p.o. nightly. 4. Dopamine 5 mcg/kg per minute. 5. Spironolactone 25 mg p.o. daily. TELEMETRY: Atrial fibrillation. CT OF THE ABDOMEN AND PELVIS: Long segment of thickening of the sigmoid colon, which may reflect chronic diverticular change in a setting of diverticulosis or mild colitis. Moderate generalized pleural effusion with mild ascites and anasarca. Urine culture growing Rose albicans. IMPRESSION 1. Sepsis. 2. Evcpw-dr-yetebqb systolic and diastolic heart failure. 3. Coronary artery disease. 4. Mitral regurgitation and mitral stenosis, status post MitraClip. 5. Atrial fibrillation on anticoagulation with warfarin. 6. Sick sinus syndrome. 7. Peripheral arterial disease with history of lower extremity ulcers. 8. End-stage renal disease on hemodialysis. RECOMMENDATIONS: Check INR. Hold warfarin for possible procedures. If INR is subtherapeutic, plan to start heparin drip. Continue dopamine, wean as tolerated. Monitor the patient closely on telemetry. Antibiotics per infectious disease. Source has not been identified. Volume management per nephrology given end-stage renal disease. EP has been consulted for permanent pacemaker, although the bradycardia may be due to metabolic derangement in the setting of sepsis. She is currently not a candidate given suspected infection at this time. Hold all [id number]-cmyimnzn agents. Continue current cardiac medications otherwise. Thank you for this consult. We will continue to follow. Job#: [id number]
--- NOTE | 2017-11-25 14:57 | Progress Note ---
DATE: November 25, 2017 INTERNAL MEDICINE PROGRESS NOTE SUBJECTIVE: She is doing much better now. PHYSICAL EXAMINATION VITALS: Blood pressure 90/73. Temperature 99.2. Heart rate 79 per minute. Respiratory rate is 22 per minute. Oxygen saturation is 93%. HEART: Regular rhythm. Normal S1, S2 sounds. LUNGS: Clear bilaterally. ABDOMEN: Soft. EXTREMITIES: No evidence of cyanosis, edema or trauma. LABS: On the BMP, sodium 131, potassium 5.2, chloride 94, CO2 23, BUN 32, creatinine 2.81. Glucose 63. On the CBC, white blood count 24,200, hemoglobin 10.9, hematocrit 34.7, platelet count 279,000. PT 22.3, PTT 43.0, INR 2.12. AST 24, ALT 13, total bilirubin 2.8 and alkaline phosphatase 209. FINAL IMPRESSION 1. Septic shock, which is slowly resolving. 2. Hypotension secondary to sepsis. 3. End-stage renal disease on dialysis. 4. Hyperkalemia. 5. Anemia of chronic disease. 6. Episode of bradycardia. 7. Diabetes mellitus, type 2, with end-stage renal disease. 8. Gout. 9. disease. 10. Insomnia. 11. Hypercholesterolemia. PLAN OF TREATMENT 1. Continue with dopamine as needed to keep systolic blood pressure more than 90. 2. Continue metronidazole q.8 h. 3. Continue sodium chloride 100 mL an hour. 4. Allopurinol 100 mg daily. 5. Protonix 40 mg daily. 6. Temazepam 15 mg at bedtime p.r.n. for sleep. 7. Furosemide 40 mg IV daily. 8. Aldactone 25 mg daily. 9. Crestor 5 mg at bedtime. 10. Heparin 5,000 units subcutaneously q.12 h. because of history of DVT. 11. Continue levothyroxine 75 mcg daily. 12. Tramadol 50 mg q.4 h. 13. Glipizide 2.5 mg daily. 14. Vancomycin 250 mg p.o. q.6 h. 15. Stool for C. difficile has been sent. The diarrhea is gone. 16. Methocarbamol 750 mg 3 times a day. 17. Coumadin 2.5 mg daily. 18. Benadryl 25 mg q.6 h. 19. We are going to go ahead and discontinue the heparin since the patient is tolerating the diet and she is able to take the Coumadin. Consultants are Dr. Morales for infectious diseases, Dr. Cosme for cardiology, Dr. Roger Bruno for renal. Diet is 1800 calorie ADA diet, renal diet. Patient is doing well today. Heart rate is 70 right now. Oxygen saturation is more than 95%. Job#: [id number]
[2017-11-25] MEDS: TEMAZEPAM 15 MG CAP PO PRN (21:00)
[2017-11-25] MEDS: CRESTOR 10MG PO SCH (21:03)
[2017-11-26] VITALS (61 sets, daily range): BP systolic 82–147; BP diastolic 31–91
[2017-11-26] MEDS: VANCOMYCIN 250MG/5ML ORAL SOLN PO SCH ×4 (00:11→17:04)
[2017-11-26 04:38] LABS: BASOPHILS # (AUTO) 0.1 (0.0-0.1); BASOPHILS % 0.8 % (0.0-1.0); EOSINOPHILS # (AUTO) 0.1 (0.0-0.4); EOSINOPHILS % 1.1 % (0.0-6.0); HEMATOCRIT 32.9 % (34.2-44.1); HEMOGLOBIN 10.6 g/dL (12.0-16.0); LYMPHOCYTES # (AUTO) 1.5 (1.0-3.2); LYMPHOCYTES % 12.1 % (18.0-39.1); MEAN CORPUSCULAR HEMOGLOBIN 29.9 pg (28-32); MEAN CORPUSCULAR HGB CONC 32.2 g/dL (31-35); MEAN CORPUSCULAR VOLUME 92.7 fL (81-99); NEUTROPHILS # (AUTO) 9.8 (2.1-6.9); NEUTROPHILS % 76.8 % (38.7-80.0); PLATELET COUNT 261 x10e3/uL (140-360); RED BLOOD COUNT 3.55 x10e6/uL (3.6-5.1); RED CELL DISTRIBUTION WIDTH 16.6 % (11.7-14.4)
[2017-11-26 05:06] LABS: ANION GAP 17.6 mmol/L (8-16); CALCIUM 8.6 mg/dL (8.4-10.2); CREATININE, SERUM 3.26 mg/dL (0.57-1.11); POTASSIUM 4.6 mmol/L (3.5-5.1)
[2017-11-26] MEDS: TRAMADOL HCL 50 MG TAB PO PRN (05:15)
[2017-11-26] MEDS: LEVOTHYROXINE SODIUM 75 MCG TAB PO SCH (05:15)
[2017-11-26] MEDS: METRONIDAZOLE 500MG/NS 100ML 100 ML IV SCH ×3 (05:15→22:48)
[2017-11-26 07:37] LABS: INR 4.15; PROTHROMBIN TIME 37.7 seconds (11.9-14.5)
[2017-11-26] MEDS: PANTOPRAZOLE SOD 40 MG TABEC PO SCH (10:56)
[2017-11-26] MEDS: GLIPIZIDE 5 MG TAB PO SCH (10:56)
[2017-11-26] MEDS: ALLOPURINOL 100 MG TAB PO SCH (10:56)
--- NOTE | 2017-11-26 12:37 | Progress Note ---
DATE: November 26, 2017 CARDIOLOGY PROGRESS NOTE SUBJECTIVE: No major events overnight. The patient is doing much better, no longer hypertensive, getting dialysis today. REVIEW OF SYSTEMS: As above, otherwise negative. OBJECTIVE VITAL SIGNS: Temperature 97.6, pulse 65, respiratory rate 14, blood pressure 103/52, satting 100% on 4 liters nasal cannula. GENERAL: Elderly white female in no acute distress. CARDIOVASCULAR: Irregular rhythm. Normal S1, S2. RVT with 3/6 systolic murmur at the apex and the base. Palpable radial pulses, palpable carotid pulses. Pedal pulses are dopplerable only. EXTREMITIES: There is only trace edema at the ankles. RESPIRATORY: No respiratory distress. Mild crackles at the bases only. ABDOMEN: Soft, nontender, nondistended. No masses. NEURO AND PSYCH: The patient is alert and oriented to person, place and time. Normal affect. LABORATORY DATA: Reviewed. MEDICATIONS: Reviewed. TELEMETRY DATA: Reviewed. Shows atrial fibrillation. IMAGING DATA: Reviewed. ASSESSMENT 1. Sepsis. 2. Gxphj-sn-nlmkrgr systolic and diastolic heart failure. 3. Coronary artery disease. 4. Mitral regurgitation and mitral stenosis, status post MitraClip. 5. Atrial fibrillation, on anticoagulation with warfarin. 6. Sick sinus syndrome. 7. Peripheral arterial disease, history of lower extremity ulcers. 8. End-stage renal disease, on hemodialysis. RECOMMENDATIONS: Doing much better today. White count has come down nicely from 52,000 down to 12,000 today. Heart rate is now in the 60s and 70s. Blood pressure is improved to 110s, still on low-dose peripheral dopamine. Continue to hold warfarin given INR of 4.1, no evidence of bleeding. Continue to hold cardiovascular medications and blood pressure medications until her blood pressure improves. EP has been consulted for a potential pacemaker for tachy-karen syndrome. Thank you for this consult. Will continue to follow. Job#: [id number] EV
[2017-11-26] MEDS ORDERED: MANNITOL 25% 12.5GM/50 ML VIAL IV PRN (13:30)
[2017-11-26] MEDS ORDERED: ALBUMIN 25% 12.5GM 50 ML IV PRN (13:30)
[2017-11-26] MEDS: HEPARIN SOD (PORCINE) 5,000 UNIT/ML VIAL SC SCH ×2 (15:48→20:49)
[2017-11-26] MEDS: CRESTOR 10MG PO SCH (20:48)
[2017-11-26] MEDS: TEMAZEPAM 15 MG CAP PO PRN (20:49)
[2017-11-27] VITALS (101 sets, daily range): BP systolic 64–153; BP diastolic 41–87
[2017-11-27] MEDS: LEVOTHYROXINE SODIUM 75 MCG TAB PO SCH (05:38)
[2017-11-27] MEDS: VANCOMYCIN 250MG/5ML ORAL SOLN PO SCH ×4 (05:38→17:29)
[2017-11-27] MEDS: METRONIDAZOLE 500MG/NS 100ML 100 ML IV SCH ×3 (05:38→22:00)
[2017-11-27 08:15] LABS: BASOPHILS # (AUTO) 0.1 (0.0-0.1); BASOPHILS % 0.3 % (0.0-1.0); EOSINOPHILS % 0.1 % (0.0-6.0); HEMATOCRIT 31.9 % (34.2-44.1); HEMOGLOBIN 10.1 g/dL (12.0-16.0); LYMPHOCYTES # (AUTO) 1.2 (1.0-3.2); LYMPHOCYTES % 4.3 % (18.0-39.1); MEAN CORPUSCULAR HGB CONC 31.7 g/dL (31-35); MEAN CORPUSCULAR VOLUME 94.7 fL (81-99); MONOCYTES # (AUTO) 1.1 (0.2-0.8); MONOCYTES % 3.9 % (4.4-11.3); NEUTROPHILS # (AUTO) 25.9 (2.1-6.9); NEUTROPHILS % 90.5 % (38.7-80.0); PLATELET COUNT 239 x10e3/uL (140-360); RED BLOOD COUNT 3.37 x10e6/uL (3.6-5.1); RED CELL DISTRIBUTION WIDTH 17.3 % (11.7-14.4)
[2017-11-27 08:34] LABS: ALBUMIN 2.6 g/dL (3.5-5.0); ALBUMIN/GLOBULIN RATIO 0.8 (0.8-2.0); ANION GAP 14.2 mmol/L (8-16); CALCIUM 8.5 mg/dL (8.4-10.2); CREATININE, SERUM 2.65 mg/dL (0.57-1.11); POTASSIUM 4.2 mmol/L (3.5-5.1)
[2017-11-27 09:33] LABS: BASOPHILS # (AUTO) 0.1 (0.0-0.1); BASOPHILS % 0.4 % (0.0-1.0); EOSINOPHILS % 0.1 % (0.0-6.0); HEMATOCRIT 31.2 % (34.2-44.1); LYMPHOCYTES # (AUTO) 1.2 (1.0-3.2); LYMPHOCYTES % 4.2 % (18.0-39.1); MEAN CORPUSCULAR HGB CONC 32.1 g/dL (31-35); MEAN CORPUSCULAR VOLUME 93.7 fL (81-99); MONOCYTES # (AUTO) 1.2 (0.2-0.8); MONOCYTES % 4.2 % (4.4-11.3); NEUTROPHILS # (AUTO) 26.2 (2.1-6.9); NEUTROPHILS % 90.3 % (38.7-80.0); PLATELET COUNT 227 x10e3/uL (140-360); RED BLOOD COUNT 3.33 x10e6/uL (3.6-5.1); RED CELL DISTRIBUTION WIDTH 17.1 % (11.7-14.4)
[2017-11-27] MEDS: ALLOPURINOL 100 MG TAB PO SCH (09:46)
[2017-11-27] MEDS: PANTOPRAZOLE SOD 40 MG TABEC PO SCH (09:46)
[2017-11-27] MEDS: GLIPIZIDE 5 MG TAB PO SCH (09:46)
[2017-11-27] MEDS: HEPARIN SOD (PORCINE) 5,000 UNIT/ML VIAL SC SCH ×2 (09:47→20:56)
--- NOTE | 2017-11-27 11:06 | Diagnostic Imaging Report ---
PROCEDURE: CHEST SINGLE (PORTABLE) COMPARISON: Patients [facility], DX, CHEST SINGLE (PORTABLE), 11/24/2017, 8:30. INDICATIONS: CONGESTIVE HEART FAILURE FINDINGS: LUNGS: Slight improvement in the pulmonary edema. PLEURA: Small bilateral pleural effusions. HEART \T\ MEDIASTINUM: The heart remains enlarged. There are sternotomy wire sutures. Clip overlies the left side of the heart. No change in the location of the right internal jugular tunneled hemodialysis catheter. BONES \T\ SOFT TISSUES: No acute findings. CONCLUSION: Slight improvement in the pulmonary edema. Alin Reese D.O. Dictated by: Alin Reese D.O. on 11/27/2017 at 11:12 Electronically approved by: Alin Reese D.O. on 11/27/2017 at 11:12
[2017-11-27] MEDS: FLUCONAZOLE 100 MG/NS 50 ML 50 ML IV SCH (11:15)
[2017-11-27] MEDS: MIDODRINE 2.5 MG TAB PO SCH ×2 (11:40→15:20)
--- NOTE | 2017-11-27 20:13 | Progress Note ---
DATE: November 27, 2017 SUBJECTIVE: No major events overnight. Has diarrhea, some abdominal pain. REVIEW OF SYSTEMS: As above, otherwise negative. OBJECTIVE VITAL SIGNS: Temperature 98.0, pulse 76, respiratory rate 14, blood pressure 124/71, satting 99% on 4 liters nasal cannula. GENERAL: An elderly, white female in no acute distress. CARDIOVASCULAR: Irregular rhythm. Normal S1 and S2. A 3/6 murmur at the apex and the base. Palpable radial pulses. Palpable carotid pulses. EXTREMITIES: Only trace edema at the ankles. RESPIRATORY: No respiratory distress. Mild crackles at the bases. ABDOMEN: Soft, mildly tender, nondistended, no rebound or guarding. No masses. NEURO AND PSYCHIATRIC: Alert and oriented to person, place and time. Normal affect. LABORATORY DATA: Reviewed. C. difficile positive stools. MEDICATIONS: Reviewed. TELEMETRY DATA: Reviewed, shows rate-controlled atrial fibrillation. IMAGING DATA: Reviewed. ASSESSMENT 1. Clostridium difficile colitis. 2. Sepsis secondary to Clostridium difficile colitis. 3. Djbpc-ag-tjrwshf systolic and diastolic heart failure. 4. Coronary artery disease. 5. Mitral regurgitation and mitral stenosis status post mitral clip. 6. Atrial fibrillation on anticoagulation with warfarin. 7. Sick sinus syndrome. 8. Peripheral arterial disease. 9. History of lower extremity ulcers. 10. End-stage renal disease on hemodialysis. RECOMMENDATIONS: Stools were C. diff. positive. White count has gone up; however, started on C. diff. therapy today. Continues to have diarrhea. From a cardiovascular standpoint, heart rate is well controlled. Blood pressure remains acceptable. Warfarin dose taken to maintain INR between 2 and 3, holding cardiovascular medicines until blood pressure improves. Thank you for this consult. Will continue to follow. Job#: [id number]
[2017-11-27] MEDS: CRESTOR 10MG PO SCH (20:55)
[2017-11-27] MEDS: TEMAZEPAM 15 MG CAP PO PRN (20:55)
[2017-11-28] VITALS (65 sets, daily range): BP systolic 65–128; BP diastolic 25–89
[2017-11-28] MEDS: VANCOMYCIN 250MG/5ML ORAL SOLN PO SCH ×4 (00:51→18:23)
[2017-11-28] MEDS: LEVOTHYROXINE SODIUM 75 MCG TAB PO SCH (06:20)
[2017-11-28] MEDS: METRONIDAZOLE 500MG/NS 100ML 100 ML IV SCH ×3 (06:20→21:02)
[2017-11-28 07:42] LABS: BASOPHILS # (AUTO) 0.1 (0.0-0.1); BASOPHILS % 0.3 % (0.0-1.0); HEMATOCRIT 31.7 % (34.2-44.1); HEMOGLOBIN 10.3 g/dL (12.0-16.0); LYMPHOCYTES % 2.4 % (18.0-39.1); MEAN CORPUSCULAR HEMOGLOBIN 30.1 pg (28-32); MEAN CORPUSCULAR HGB CONC 32.5 g/dL (31-35); MEAN CORPUSCULAR VOLUME 92.7 fL (81-99); MONOCYTES # (AUTO) 1.4 (0.2-0.8); MONOCYTES % 3.5 % (4.4-11.3); NEUTROPHILS # (AUTO) 38.6 (2.1-6.9); NEUTROPHILS % 92.8 % (38.7-80.0); PLATELET COUNT 221 x10e3/uL (140-360); RED BLOOD COUNT 3.42 x10e6/uL (3.6-5.1); RED CELL DISTRIBUTION WIDTH 17.2 % (11.7-14.4)
[2017-11-28] MEDS: MIDODRINE 2.5 MG TAB PO SCH ×3 (07:55→16:05)
[2017-11-28] MEDS: GLIPIZIDE 5 MG TAB PO SCH (07:55)
[2017-11-28 08:06] LABS: ANION GAP 16.4 mmol/L (8-16); CALCIUM 8.5 mg/dL (8.4-10.2); CREATININE, SERUM 3.71 mg/dL (0.57-1.11); POTASSIUM 4.4 mmol/L (3.5-5.1)
[2017-11-28 09:12] LABS: BAND NEUTROPHILS % (MANUAL) 5 %; LYMPHOCYTES % (MANUAL) 2 % (19-48); MONOCYTES % (MANUAL) 3 % (3.4-9.0); NEUTROPHILS % (MANUAL) 90 % (40-74)
[2017-11-28 09:13] LABS: ANISOCYTOSIS SLIGHT; HYPOCHROMASIA SLIGHT; PLATELET ESTIMATE ADEQUATE; PLATELET MORPHOLOGY COMMENT NORMAL; RBC MORPHOLOGY COMMENT NORMAL
[2017-11-28] MEDS: HEPARIN SOD (PORCINE) 5,000 UNIT/ML VIAL SC SCH ×2 (09:22→20:37)
[2017-11-28] MEDS: ALLOPURINOL 100 MG TAB PO SCH (14:15)
[2017-11-28] MEDS: PANTOPRAZOLE SOD 40 MG TABEC PO SCH (14:15)
[2017-11-28] MEDS: FLUCONAZOLE 100 MG/NS 50 ML 50 ML IV SCH (15:30)
[2017-11-28] MEDS: ACETAMINOPHEN 325 MG TAB PO PRN (16:32)
[2017-11-28] MEDS ORDERED: VANCOMYCIN 1GM/NS 250 ML 250 ML ONE (16:35)
[2017-11-28] MEDS ORDERED: VANCOMYCIN 1GM/NS 250 ML 250 ML IV ONE (16:45)
[2017-11-28] MEDS ORDERED: MEROPENEM 500MG 500 MG in SODIUM CHLORIDE 0.9% 50ML 50 ML IV SCH (17:00)
[2017-11-28] MEDS ORDERED: MEROPENEM 500 MG VIAL IV SCH (18:00)
[2017-11-28] MEDS ORDERED: VANCOMYCIN 1GM/NS 250 ML 250 ML IV PRN (18:45)
--- NOTE | 2017-11-28 18:45 | Progress Note ---
DATE: November 28, 2017 CARDIOLOGY PROGRESS NOTE SUBJECTIVE: No major events. No diarrhea today. However, did spike a temperature after dialysis. Blood cultures were done. She remains on dopamine 5 mg. Denies any chest pain or shortness of breath. REVIEW OF SYSTEMS: As above, otherwise negative. OBJECTIVE VITAL SIGNS: Temperature 102.1, pulse 116, respiratory rate 30, blood pressure 125/69, satting 94% on 3 liters nasal cannula. GENERAL: An elderly, white female in no acute distress. CARDIOVASCULAR: Irregular tachy rhythm. Normal S1 and S2. A 3/6 murmur at the apex and the base. Palpable radial pulses. Palpable carotid pulses. EXTREMITIES: Only trace edema at the ankles. RESPIRATORY: No respiratory distress. Mild bibasilar crackles. ABDOMEN: Soft, mildly tender, nondistended, no rebound or guarding. No masses. NEURO AND PSYCHIATRIC: Alert and oriented to person, place and time. Normal affect. LABORATORY DATA: Reviewed. C. difficile positive stools. MEDICATIONS: Reviewed. TELEMETRY DATA: Reviewed, shows atrial fibrillation with intermittent tachycardia with heart rates up to 110s to 120s. IMAGING DATA: Reviewed. Shows colitis on CT of the abdomen and pelvis. ASSESSMENT 1. Clostridium difficile colitis. 2. Sepsis secondary to Clostridium difficile colitis. 3. Ykacz-nl-hjhbnij systolic and diastolic heart failure. 4. Coronary artery disease. 5. Mitral regurgitation and mitral stenosis status post mitral clip. 6. Atrial fibrillation on anticoagulation with warfarin. 7. Sick sinus syndrome. 8. Peripheral arterial disease. 9. History of lower extremity ulcers. 10. End-stage renal disease on hemodialysis. RECOMMENDATIONS: Cardiovascular issues are currently stable. She has runs of rapid ventricular response. Given that she is febrile and septic would not increase her rate control medications at this time unless the rate increases significantly. Treatment of her infection issues per primary team. Warfarin dosing per pharmacy to keep INR between 2 and 3. Holding all cardiovascular medicines that may lower blood pressure until sepsis resolves. Thank you for this consult. Will continue to follow. Job#: [id number]
[2017-11-28] MEDS: CRESTOR 10MG PO SCH (20:36)
[2017-11-29] VITALS (80 sets, daily range): BP systolic 80–138; BP diastolic 40–90
[2017-11-29] MEDS: VANCOMYCIN 250MG/5ML ORAL SOLN PO SCH ×5 (00:12→23:45)
[2017-11-29 04:38] LABS: BASOPHILS # (AUTO) 0.2 (0.0-0.1); BASOPHILS % 0.4 % (0.0-1.0); HEMATOCRIT 35.7 % (34.2-44.1); HEMOGLOBIN 11.3 g/dL (12.0-16.0); LYMPHOCYTES # (AUTO) 1.6 (1.0-3.2); LYMPHOCYTES % 3.3 % (18.0-39.1); MEAN CORPUSCULAR HEMOGLOBIN 29.7 pg (28-32); MEAN CORPUSCULAR HGB CONC 31.7 g/dL (31-35); MEAN CORPUSCULAR VOLUME 93.9 fL (81-99); MONOCYTES # (AUTO) 1.7 (0.2-0.8); MONOCYTES % 3.7 % (4.4-11.3); NEUTROPHILS # (AUTO) 42.6 (2.1-6.9); NEUTROPHILS % 90.3 % (38.7-80.0); PLATELET COUNT 241 x10e3/uL (140-360); RED CELL DISTRIBUTION WIDTH 17.5 % (11.7-14.4)
[2017-11-29 05:05] LABS: ALBUMIN 2.8 g/dL (3.5-5.0); ALBUMIN/GLOBULIN RATIO 0.7 (0.8-2.0); ANION GAP 18.5 mmol/L (8-16); CALCIUM 8.9 mg/dL (8.4-10.2); CREATININE, SERUM 2.89 mg/dL (0.57-1.11); POTASSIUM 4.5 mmol/L (3.5-5.1)
[2017-11-29] MEDS: LEVOTHYROXINE SODIUM 75 MCG TAB PO SCH (05:52)
[2017-11-29] MEDS: METRONIDAZOLE 500MG/NS 100ML 100 ML IV SCH ×3 (05:52→21:56)
[2017-11-29 06:32] LABS: BAND NEUTROPHILS % (MANUAL) 3 %; LYMPHOCYTES % (MANUAL) 3 % (19-48); MONOCYTES % (MANUAL) 3 % (3.4-9.0); NEUTROPHILS % (MANUAL) 89 % (40-74)
[2017-11-29 06:33] LABS: ANISOCYTOSIS MODERATE; HYPOCHROMASIA SLIGHT; PLATELET ESTIMATE ADEQUATE; PLATELET MORPHOLOGY COMMENT NORMAL; POIKILOCYTOSIS SLIGHT; RBC MORPHOLOGY COMMENT ABNORMAL
[2017-11-29] MEDS: GLIPIZIDE 5 MG TAB PO SCH (07:45)
[2017-11-29] MEDS: MIDODRINE 2.5 MG TAB PO SCH ×3 (07:46→17:11)
[2017-11-29] MEDS: PANTOPRAZOLE SOD 40 MG TABEC PO SCH (09:00)
[2017-11-29] MEDS: ALLOPURINOL 100 MG TAB PO SCH (09:00)
[2017-11-29] MEDS: HEPARIN SOD (PORCINE) 5,000 UNIT/ML VIAL SC SCH ×2 (09:04→20:04)
[2017-11-29 10:15] LABS: AMYLASE 76 U/L (25-125); LIPASE 204 U/L (8-78)
[2017-11-29] MEDS: FLUCONAZOLE 100 MG/NS 50 ML 50 ML IV SCH (10:15)
[2017-11-29 10:29] LABS: INR 3.35; PROTHROMBIN TIME 31.9 seconds (11.9-14.5)
[2017-11-29] MEDS ORDERED: DIATRIZOATE MEGL/DIATRIZOA SOD 30 ML BTL PO ONE (10:48)
--- NOTE | 2017-11-29 10:48 | Progress Note ---
DATE: November 29, 2017 CARDIOLOGY PROGRESS NOTE SUBJECTIVE: The patient denies chest pain. However, she is complaining of shortness of breath. OBJECTIVE VITALS: Temperature 97.9 degrees, pulse 84, respiratory rate 17, blood pressure 99/62, and oxygen saturation 100% on 3 L nasal cannula. GENERAL: Elderly woman in no acute distress. Awake and alert. LUNGS: Clear to auscultation bilaterally. No wheezes or crackles. CARDIOVASCULAR: Irregularly irregular. Normal rate. Normal S1 and S2. A 2-3/6 systolic murmur at the apex and the base. ABDOMEN: Soft and nontender. EXTREMITIES: Two plus pitting edema. CARDIAC MEDICATIONS 1. Midodrine 10 mg p.o. t.i.d. 2. Levothyroxine 75 mcg p.o. daily. 3. Rosuvastatin 5 mg p.o. at bedtime. 4. Dopamine 5 mcg per minute. LABS: WBC 47.17, hemoglobin 11.3, hematocrit 35.7, and platelets 241,000. Sodium 134, potassium 4.5, chloride 97, CO2 23, BUN 21, creatinine 2.89. AST 58, ALT 27, alk phos 403. Total bilirubin 3.5. Telemetry is atrial fibrillation. IMPRESSION 1. Clostridium difficile colitis. 2. Sepsis secondary to above. 3. Wlyju-vg-ufveccx systolic and diastolic heart failure. 4. Coronary artery disease. 5. Mitral regurgitation and mitral stenosis: Status post mitral clip. 6. Atrial fibrillation. 7. Sick sinus syndrome. 8. Peripheral arterial disease. 9. History of lower extremity ulcers. 10. End-stage renal disease, on hemodialysis. RECOMMENDATIONS: Continue current cardiac medications. Check INR. Supportive care with dopamine. Will obtain chest x-ray today given complaint of shortness of breath. Volume management per nephrology given the patient's end-stage renal disease, on hemodialysis. Antibiotics per primary. Avoid all AV maya blocking agents given pressor requirement, as well as prior bradycardia. Continue current cardiac medications otherwise. Thank you for this consult. We will continue to follow. Job#: [id number] MA
--- NOTE | 2017-11-29 13:38 | Diagnostic Imaging Report ---
EXAMINATION: CT of the abdomen and pelvis without contrast. TECHNIQUE: Spiral CT images of the abdomen and pelvis were performed from the lung bases to the lesser trochanters. No intravenous contrast was given per physician's request. Coronal and sagittal reformatted images were obtained. COMPARISON: CT abdomen and pelvis without contrast 11/24/2017 CLINICAL HISTORY:CHF, leukocytosis DISCUSSION: ABSENCE OF INTRAVENOUS CONTRAST DECREASES SENSITIVITY FOR DETECTION OF FOCAL LESIONS AND VASCULAR PATHOLOGY. ABDOMEN/PELVIS: LOWER THORAX: Please see chest CT performed same day for further detail. HEPATOBILIARY: Nodular contour. No focal lesions. No intra or extrahepatic biliary ductal dilation. GALLBLADDER: Cholecystectomy clips. No wall thickening. SPLEEN: No splenomegaly. Calcified splenic granulomas. PANCREAS: No focal masses or ductal dilatation. Moderate atrophy. ADRENALS: No adrenal nodules. KIDNEYS/URETERS: No hydronephrosis, stones, or contour abnormalities. Left inferior pole scarring. PELVIC ORGANS/BLADDER: Evaluation of the pelvis is limited by beam hardening artifact from right hip prosthesis. Visualized bladder is unremarkable. PERITONEUM/RETROPERITONEUM: Stable mild ascites. LYMPH NODES: No intra-abdominal,retroperitoneal, pelvic or inguinal lymphadenopathy. VESSELS: Marked atherosclerotic calcification of the abdominal aorta, aortic branches and iliac vessels. Stable right femoral catheter, with distal tip terminating in the IVC. GI TRACT: No bowel dilation or evidence of obstruction. Difficult to assess for wall thickening given that the large bowel is mostly decompressed. Sigmoid diverticulosis, without definite evidence of diverticulitis. Mild amount of retained stool. Stomach is unremarkable. BONES AND SOFT TISSUES: No aggressive lytic lesions. Multiple level degenerative disc changes in the lumbosacral spine, worse at L4-L5 and L5-S1. Right hip arthroplasty. Generalized anasarca. IMPRESSION: 1. Sigmoid diverticulosis, without definite evidence of diverticulitis. Difficult to assess for wall thickening, given that the large bowel is mostly decompressed. No well-defined fluid collections are noted. 2. Stable mild ascites. Generalized anasarca. 3. Nodular hepatic contour, suggesting cirrhosis. Signed by: Dr. Faisal Huerta M.D. on 11/29/2017 1:34 PM
--- NOTE | 2017-11-29 13:46 | Diagnostic Imaging Report ---
EXAMINATION: CT scan of the chest without contrast. TECHNIQUE: Spiral CT images of the chest were performed from the lung apices to the level of the adrenal glands. No intravenous contrast was administered per physician's request. Coronal and sagittal reformatted images were obtained. COMPARISON: None. CLINICAL HISTORY:CHF, leukocytosis DISCUSSION: ABSENCE OF INTRAVENOUS CONTRAST DECREASES SENSITIVITY FOR DETECTION OF FOCAL LESIONS AND VASCULAR PATHOLOGY. LINES/TUBES: Right IJ double lumen catheter, with distal tip terminating in the atrium. LUNGS AND AIRWAYS: Compressive atelectasis of bilateral lower lobes. Mild intralobular septal thickening predominantly in the upper lungs. No nodules or masses. Calcified granuloma in the lateral right lower lobe (series 4, image 76). The airways are clear, without endobronchial lesions. PLEURA: Bilateral moderate pleural effusions. No pneumothorax. HEART AND MEDIASTINUM: 2 mm calcification in the left lower lobe. Moderate to marked cardiomegaly, with biatrial enlargement. Atherosclerotic calcification of the coronary arteries, thoracic aorta and aortic valves. The aorta is nonaneurysmal. Main pulmonary artery is normal in caliber. LYMPH NODES: Calcified mediastinal and left hilar lymph nodes. No enlarged mediastinal, hilar or axillary lymph nodes. ABDOMEN: See CT abdomen performed same day for further detail. BONES AND SOFT TISSUES: No aggressive lytic lesions. Multiple level degenerative disc changes in the thoracic spine. Midline sternotomy wires. Generalized edema. IMPRESSION: 1. Bilateral moderate pleural effusions with compressive atelectasis of bilateral lower lobes. 2. Mild intralobular septal thickening predominantly in the upper lobes, likely reflecting interstitial edema. Given the moderate to marked cardiomegaly, anasarca and above described findings, findings likely reflect decompensated CHF/fluid overload. 3. Calcified mediastinal and left hilar lymph nodes, suggesting prior granulomatous disease. Signed by: Dr. Faisal Huerta M.D. on 11/29/2017 1:43 PM
--- NOTE | 2017-11-29 13:55 | Diagnostic Imaging Report ---
EXAMINATION: CHEST SINGLE (PORTABLE) COMPARISON: Chest x-ray 11/24/2017 INDICATION: Hypotension, shortness of breath DISCUSSION: Frontal view of the chest obtained at 1015 hours. HEART AND MEDIASTINUM: Stable cardiomegaly and calcified mediastinal lymph nodes. LINES: Dual lumen central venous catheter remains at the cavoatrial junction. LUNGS: Pulmonary vasculature is increasing in size. Bibasilar groundglass opacities are suggestive of atelectasis. No interstitial thickening. PLEURA: Small pleural effusions are stable. No pneumothorax. BONES AND SOFT TISSUES: Median sternotomy wires are intact No focal osseous lesion. Surgical clips in the lower left neck are stable. The soft tissues are normal. IMPRESSION: Increasing vascular congestion. Stable small pleural effusions. Stable cardiomegaly. Signed by: Dr. Phani Johnson MD on 11/29/2017 1:52 PM
--- NOTE | 2017-11-29 14:08 | Progress Note ---
DATE: Ms. Mello is today in the intensive care unit, remains complaining of abdominal pain. I was contacted yesterday that she is running fever and chills and is hypotensive and tachycardic. I ordered blood cultures, meropenem and vancomycin. I came to see her again today. Her white count is worse. Her main complaint is abdominal pain. PHYSICAL EXAMINATION GENERAL: She is alert and oriented, a little bit short of breath. HEENT: She is not icteric. NECK: Supple. CHEST: A few crackles at the bases. HEART: S1 and S2. No murmur. ABDOMEN: Soft. Bowel sounds present. Her physical examination is otherwise unremarkable. LABORATORY DATA: Reviewed. Her white count is getting worse. Blood culture is still pending, but it is negative. IMPRESSION: I am concerned that her Clostridium difficile is getting worse. Will discontinue IV vancomycin and discontinue meropenem. Continue oral vancomycin. Continue IV Flagyl. Will get a CAT scan to see if there is no perforation. We may have to proceed with vancomycin enema. Will follow with you. Job#: [id number]
--- NOTE | 2017-11-29 15:12 | Diagnostic Imaging Report ---
Exam: Right femoral central line replacement. History: Patient with signs and symptoms of sepsis. A right femoral central line was placed approximately 6 days prior. It is presumed to be infected. Patient does not have robust venous access sites available. Previous ultrasound of the right IJ revealed thrombosis above the permacath location. Left IJ is not available due to a recently placed left arm AV fistula and waiting for maturation. In addition the patient is coagulopathic with an INR of 3.3 making new placement at additional sites limited. Comparison: Right femoral line placement dated 11/24/2017 Findings: The right femoral central venous line was prepped and draped in usual fashion. Local anesthesia was obtained with 1% Xylocaine. A 0.035 " Amplatz Super Stiff wire was placed through the central lumen followed by removal of this catheter. A new 7 Macedonian Arrow triple-lumen 20 cm long central line was then placed. The tip of the removed catheter was sent to the laboratory for culture and sensitivity. A confirmatory film was ordered. Impression: Placement of a new right femoral central line. Signed by: Dr. Alin Reese DO on 11/29/2017 3:08 PM
--- NOTE | 2017-11-29 16:07 | Diagnostic Imaging Report ---
EXAMINATION: Pelvis AP film CLINICAL HISTORY:Exchange femoral line COMPARISON: CT abdomen and pelvis 11/29/2017 DISCUSSION: Right-sided femoral line has distal tip projecting at the level of the distal IVC. Status post right arthroplasty. Degenerative changes in the left hip joint. No aggressive lytic lesions. Degenerative changes in the lower lumbosacral spine. Atherosclerotic calcification of the abdominal aorta. IMPRESSION: 1. Right sided femoral line has distal tip projecting at the level of the distal IVC. Signed by: Dr. Faisal Huerta M.D. on 11/29/2017 4:04 PM
[2017-11-29] MEDS ORDERED: VANCOMYCIN 500MG/NS 0.9% 100ML 100 ML IV SCH (18:00)
[2017-11-29] MEDS: SODIUM CHLORIDE 0.9% RC SCH ×4 (18:06→23:45)
[2017-11-29] MEDS: VANCOMYCIN 500 MG RC SCH ×4 (18:06→23:45)
[2017-11-29] MEDS: CRESTOR 10MG PO SCH (20:03)
[2017-11-29] MEDS: ACETAMINOPHEN 325 MG TAB PO PRN (22:01)
[2017-11-29] MEDS: DIPHENHYDRAMINE HCL 25 MG CAP PO PRN (22:01)
[2017-11-30] VITALS (38 sets, daily range): BP systolic 90–129; BP diastolic 42–99
[2017-11-30] MEDS: VANCOMYCIN 250MG/5ML ORAL SOLN PO SCH ×2 (05:32→14:25)
[2017-11-30] MEDS: LEVOTHYROXINE SODIUM 75 MCG TAB PO SCH (05:32)
[2017-11-30 05:33] LABS: BASOPHILS # (AUTO) 0.1 (0.0-0.1); BASOPHILS % 0.5 % (0.0-1.0); EOSINOPHILS # (AUTO) 0.2 (0.0-0.4); EOSINOPHILS % 0.7 % (0.0-6.0); HEMATOCRIT 36.2 % (34.2-44.1); HEMOGLOBIN 11.5 g/dL (12.0-16.0); LYMPHOCYTES # (AUTO) 1.9 (1.0-3.2); LYMPHOCYTES % 8.5 % (18.0-39.1); MEAN CORPUSCULAR HEMOGLOBIN 29.5 pg (28-32); MEAN CORPUSCULAR HGB CONC 31.8 g/dL (31-35); MEAN CORPUSCULAR VOLUME 92.8 fL (81-99); MONOCYTES # (AUTO) 1.1 (0.2-0.8); MONOCYTES % 4.7 % (4.4-11.3); NEUTROPHILS # (AUTO) 19.1 (2.1-6.9); NEUTROPHILS % 84.8 % (38.7-80.0); PLATELET COUNT 268 x10e3/uL (140-360); RED CELL DISTRIBUTION WIDTH 17.3 % (11.7-14.4)
[2017-11-30 05:59] LABS: ALBUMIN 2.6 g/dL (3.5-5.0); ALBUMIN/GLOBULIN RATIO 0.7 (0.8-2.0); ANION GAP 19.3 mmol/L (8-16); CALCIUM 8.8 mg/dL (8.4-10.2); CREATININE, SERUM 3.78 mg/dL (0.57-1.11); POTASSIUM 4.3 mmol/L (3.5-5.1)
[2017-11-30] MEDS: VANCOMYCIN 500 MG RC SCH ×4 (06:27→14:25)
[2017-11-30] MEDS: SODIUM CHLORIDE 0.9% RC SCH ×4 (06:27→14:25)
[2017-11-30] MEDS: METRONIDAZOLE 500MG/NS 100ML 100 ML IV SCH ×2 (06:27→14:25)
[2017-11-30] MEDS: GLIPIZIDE 5 MG TAB PO SCH (09:00)
[2017-11-30] MEDS: MIDODRINE 2.5 MG TAB PO SCH ×2 (09:00→12:23)
[2017-11-30] MEDS: ALLOPURINOL 100 MG TAB PO SCH (09:01)
[2017-11-30] MEDS: HEPARIN SOD (PORCINE) 5,000 UNIT/ML VIAL SC SCH (09:01)
[2017-11-30] MEDS: PANTOPRAZOLE SOD 40 MG TABEC PO SCH (09:01)
--- NOTE | 2017-11-30 09:47 | Progress Note ---
DATE: November 30, 2017 CARDIOLOGY PROGRESS NOTE SUBJECTIVE: The patient denies chest pain. She is complaining of shortness of breath. Patient underwent line exchange yesterday. OBJECTIVE VITALS: Temperature 97.4 degrees, pulse 83, respiratory rate 18, blood pressure 110/61, oxygen saturation 99% on 3 L nasal cannula. GENERAL: Elderly woman, frail, in no acute distress. Awake and alert. LUNGS: Clear to auscultation bilaterally. No wheezes or crackles. CARDIOVASCULAR: Irregularly irregular. Normal rate. Normal S1 and S2. Systolic murmur is present at the apex and the base, 2/6. ABDOMEN: Soft and nontender. EXTREMITIES: There is 2+ pitting edema. CARDIAC MEDICATIONS 1. Midodrine 10 mg p.o. t.i.d. 2. Levothyroxine 75 mcg p.o. daily. 3. Rosuvastatin 5 mg p.o. at bedtime. 4. Dopamine 4 mcg per minute. LABS: WBC 22.56, hemoglobin 11.5, hematocrit 36.2, platelets 268. Sodium 130, potassium 4.3, chloride 96, CO2 19, BUN 33, creatinine 3.78. Alk phos 440, AST 62, ALT 28. Blood culture positive for gram-variable rods. TELEMETRY: Atrial fibrillation, rate controlled. IMPRESSION 1. Clostridium difficile colitis. 2. Bacteremia. 3. Sepsis secondary to above. 4. Dafnd-[id number] systolic and diastolic heart failure. 5. Coronary artery disease. 6. Mitral regurgitation and mitral stenosis, status post MitraClip. 7. Atrial fibrillation. 8. Sick sinus syndrome. 9. Peripheral arterial disease. 10. History of lower extremity ulcers. 11. End-stage renal disease on hemodialysis. RECOMMENDATIONS: Continue current cardiac medications. Follow INR. Supportive care with dopamine. Volume management per nephrology given end-stage renal disease on hemodialysis. Likely, the patient would benefit from further ultrafiltration. Antibiotics per infectious disease. Avoid all AV maya blocking agents given pressor requirement, as well as prior bradycardia. Thank you for this consult. We will continue to follow. Job#: [id number]
[2017-11-30] MEDS: FLUCONAZOLE 100 MG/NS 50 ML 50 ML IV SCH (14:25)
[2017-11-30] MEDS ORDERED: VANCOMYCIN 1GM/NS 250 ML 250 ML IV SCH (15:00)
--- NOTE | 2017-12-04 11:37 | Diagnostic Imaging Report ---
Exam: Right femoral central line placement dated 11/24/2017 at 1445 hours History: Patient in need of IV access with a large bore central line. History of 10 years of dialysis with an indwelling right IJ permacath. Patient also has a recently placed, not yet mature, left upper extremity AV fistula. Comparison: Chest x-ray dated 11/24/2017 Findings: Preliminary ultrasound in the right neck reveals internal jugular vein thrombosis above the insertion site of the permacath. Left neck is not available as the patient has a previously placed maturing left upper extremity AV fistula. Attention was then directed to the right groin. Sterile preparation was accomplished. Local anesthesia with 1% Xylocaine was obtained. Under ultrasound guidance puncture of the right common femoral vein was accomplished with a 21-gauge skinny needle. A 0.018 " wire was then placed followed by a micropuncture sheath. Through the micropuncture sheath a 0.035 " Amplatz superstiff wire was advanced centrally under fluoroscopic guidance. Dilatation with a 7 Palestinian dilator was accomplished. A 7 Palestinian triple-lumen Arrow 20 cm long central line was then placed under fluoroscopic control. Tip is localized to the L5 level. Line is okay for immediate use. Patient tolerated the procedure well. Fluoroscopy time: 0.3 minutes Dose area product: 153.5 cGycm2 Impression: 1. Ultrasound reveals right IJ thrombosis. 2. Successful placement of a right femoral triple-lumen central line utilizing ultrasound and fluoroscopic guidance. Signed by: Dr. Alin Reese DO on 11/27/2017 7:07 AM
== END 2017-11-30 18:30 | DRG 853 ==
LOC: ER 13:30 → ERHOLD 14:46 → MED/SURG2 16:17 → ICU 11-24 12:01
PROC: 0JH63XZ Insertion of Tunneled Vascular Access Device into Chest Subcutaneous Tissue and Fascia, Percutaneous Approach (ICD-10-PCS; principal; 2017-11-24)
PROC: 02H633Z Insertion of Infusion Device into Right Atrium, Percutaneous Approach (ICD-10-PCS; 2017-11-24)
PROC: 06PY03Z Removal of Infusion Device from Lower Vein, Open Approach (ICD-10-PCS; 2017-11-29)
PROC: 02H633Z Insertion of Infusion Device into Right Atrium, Percutaneous Approach (ICD-10-PCS; 2017-11-29)
DX: A41.4 Sepsis due to anaerobes (principal); R65.21 Severe sepsis with septic shock; I50.43 Acute on chronic combined systolic (congestive) and diastolic (congestive) heart failure; N18.6 End stage renal disease; I13.2 Hypertensive heart and chronic kidney disease with heart failure and with stage 5 chronic kidney disease, or end stage renal disease; B37.49 Other urogenital candidiasis; I82.C11 Acute embolism and thrombosis of right internal jugular vein; I25.2 Old myocardial infarction; I25.10 Atherosclerotic heart disease of native coronary artery without angina pectoris; Z98.61 Coronary angioplasty status; Z95.1 Presence of aortocoronary bypass graft; E11.22 Type 2 diabetes mellitus with diabetic chronic kidney disease; Z99.2 Dependence on renal dialysis; Z79.4 Long term (current) use of insulin; I48.91 Unspecified atrial fibrillation; Z79.01 Long term (current) use of anticoagulants; E11.51 Type 2 diabetes mellitus with diabetic peripheral angiopathy without gangrene; D63.1 Anemia in chronic kidney disease; M10.9 Gout, unspecified; G47.00 Insomnia, unspecified; E78.00 Pure hypercholesterolemia, unspecified; R60.0 Localized edema
CPT/HCPCS: 36415; 36556; 36580; 71045; 71046; 71250; 72170; 74176; 74470; 77002; 80048; 80053; 82150; 82550; 82553; 82948; 83605; 83690; 83880; 84484; 85025; 85610; 85730; 86704; 86706; 87040; 87070; 87071; 87086; 87186; 87205; 87340; 87493; 90962; 93005; 93306; 96361; 96366; 96367; 96372; 99284; C1751; C1769; J0692; J1450; J1644; J1940; J2001; J2185; J3370; J7030; J7040; J7050